=== PATIENT | female | born 1945 | race Caucasian/White ===

== ENCOUNTER 2016-12-26 11:32 | Emergency (ER) | payer MEDICARE ==
--- NOTE | 2016-12-26 12:57 | RAD ---
INDICATION: Head injury. COMPARISON: Comparison is made with a prior CT of the brain from December 17, 2015. TECHNIQUE: Contiguous axial sections of the brain were obtained from the skull base to the vertex without contrast. FINDINGS: The ventricles, cisterns and sulci are enlarged consistent with diffuse atrophy. There are multiple focal areas of decreased density in the subcortical and periventricular white matter suggestive of moderate to severe chronic small vessel ischemic changes. There is no evidence for hemorrhage. No significant focal osseous abnormality is seen. The visualized portion of the paranasal sinuses and mastoid air cells appear clear. IMPRESSION: 1. NO EVIDENCE FOR ACUTE INTRACRANIAL ABNORMALITY. 2. FINDINGS SUGGESTIVE OF MODERATE TO SEVERE CHRONIC SMALL VESSEL ISCHEMIC CHANGES.
--- NOTE | 2016-12-26 13:23 | ED ---
Head Injury - HPI Summary HPI Summary: 71F presents with right side head laceration. She states she woke up and notice that her head was bleeding. She does not remember any injury. She denies any nausea or vomiting. She is not on any blood thinners. She denies any headache or pain anywhere. - History Of Current Complaint Chief Complaint: EDLacSutureRecheck Stated Complaint: FOUND BLOOD IN HAIR, HEAD PAIN Time Seen by Provider: 12/26/16 11:58 Pain Intensity: 5 - Allergies/Home Medications Allergies/Adverse Reactions: Allergies Allergy/AdvReac Type Severity Reaction Status Date / Time Aspirin Allergy Swelling Verified 12/26/16 12:17 Of Face,Lips,& Throat Ibuprofen Allergy Swelling Verified 12/26/16 12:17 Of Face,Lips,& Throat Lamotrigine [From Lamictal] Allergy CONFUSION Verified 12/26/16 12:17 Penicillins Allergy Swelling Verified 12/26/16 12:17 Of Face,Lips,& Throat PMH/Surg Hx/FS Hx/Imm Hx Endocrine/Hematology History: Denies: Hx Anticoagulant Therapy, Hx Diabetes, Hx Systemic Lupus Erythematosus, Hx Thyroid Disease Cardiovascular History: Reports: Hx Hypercholesterolemia, Hx Hypertension Denies: Hx Pacemaker/ICD Respiratory History: Denies: Hx Asthma, Hx Lung Cancer, Hx Pneumonia, Hx Pulmonary Embolism History: Denies: Hx Renal Disease Sensory History: Reports: Hx Contacts or Glasses - reading only Denies: Hx Hearing Aid Opthamlomology History: Reports: Hx Contacts or Glasses - reading only Neurological History: Reports: Hx Transient Ischemic Attacks (TIA) - 12/29 Psychiatric History: Reports: Hx Anxiety, Hx Depression Denies: Hx Panic Disorder - Cancer History Hx Chemotherapy: No Hx Radiation Therapy: No - Surgical History Surgery Procedure, Year, and Place: Right Hip replacement (2012);. tonsilectomy (1965) Infectious Disease History: No Infectious Disease History: Denies: History Other Infectious Disease, Traveled Outside the [place] in Last 30 Days - Family History Known Family History: Positive: Hypertension, Diabetes - Social History Alcohol Use: Rare Substance Use Type: Reports: None Smoking Status (MU): Former Smoker Review of Systems Negative: Fever Negative: Chest Pain Negative: Shortness Of Breath Positive: Other - laceration to scalp Positive: Headache All Other Systems Reviewed And Are Negative: Yes Physical Exam Triage Information Reviewed: Yes Vital Signs On Initial Exam: Initial Vitals Temp Pulse Resp BP Pulse Ox 98.8 F 76 18 131/66 96 12/26/16 11:37 12/26/16 11:37 12/26/16 11:37 12/26/16 11:37 12/26/16 11:37 Vital Signs Reviewed: Yes Appearance: Positive: Well-Appearing Skin: Positive: Warm, Dry, Other - 2cm on right side of scalp Head/Face: Positive: Normal Head/Face Inspection, Other - no step off, racoon eyes, acevedo sign Eyes: Positive: Normal, EOMI, RADHA, Conjunctiva Clear ENT: Positive: Normal ENT inspection, Pharynx normal, TMs normal Respiratory/Lung Sounds: Positive: Clear to Auscultation, Breath Sounds Present Cardiovascular: Positive: Normal, RRR Neurological: Positive: Sensory/Motor Intact, Alert, Oriented to Person Place, Time, CN Intact II-III - [place] Coma Scale Best Eye Response: 4 - Spontaneous Best Motor Response: 6 - Obeys Commands Best Verbal Response: 5 - Oriented Procedures - Laceration/Wound Repair 1 Location: head Description: Linear Length, Depth and Shape: 2cm Irrigated w/ Saline (ccs): 50 Closure: Dickinson #__ - 2 Diagnostics - Vital Signs Vital Signs Temp Pulse Resp BP Pulse Ox 12/26/16 12:17 98.5 F 71 18 128/58 95 12/26/16 11:37 98.8 F 76 18 131/66 96 - Laboratory Lab Statement: Any lab studies that have been ordered have been reviewed, and results considered in the medical decision making process. - CT brain CT Interpretation: No Acute Changes CT Interpretation Completed By: Radiologist Head Injury Course/Dx Course Of Treatment: 71F presents with laceration to scalp that does not know how got. denies any hadache, nausea or vomiting. not on blood thinners. on exam normal neuro exam and 2cm scalp laceration that placed [address] head normal. patient understands and agrees with plan - Diagnoses Differential Diagnosis/HQI/PQRI: Concussion Without LOC, Contusion, Laceration Provider Diagnoses: Laceration of scalp, Head injury Discharge - Discharge Plan Condition: Good Disposition: HOME Patient Education Materials: Staple Care (ED) Referrals: Jayson Cam MD [Primary Care Provider] - Additional Instructions: Take Tylenol for pain Do not scrub staple area Return to ED or primary in 7-10 days to have kvng removed Follow up with primary within 5 days Return to ED if develop signs of infection such as fever, spreading redness, or pus or if vomit again or any new or worsening symptoms
[2016-12-26 13:44] VITALS: BP 139/64
== END 2016-12-26 13:41 | disposition home or self-care (01) ==
LOC: ED 11:32
DX: R51 Headache (principal); S01.01XA Laceration without foreign body of scalp, initial encounter; S09.90XA Unspecified injury of head, initial encounter; X58.XXXA Exposure to other specified factors, initial encounter; Y93.9 Activity, unspecified; Y92.9 Unspecified place or not applicable; Z87.891 Personal history of nicotine dependence
CPT/HCPCS: 12001; 70450; 99281

== ENCOUNTER 2017-01-08 17:31 | Emergency (ER) | payer MEDICARE ==
[2017-01-08 21:03] LABS: Hematocrit 40 % (35-47); Hemoglobin 13.4 g/dl (12.0-16.0); Mean Corpuscular HGB Conc 33 g/dl (31-36); Mean Corpuscular Hemoglobin 30 pg (27-31); Mean Corpuscular Volume 89 fL (80-97); Mean Platelet Volume 9 um3 (7.4-10.4); Red Blood Count 4.49 10^6/ul (4.0-5.4); Red Cell Distribution Width 14 % (10.5-15); White Blood Count 7.7 10^3/ul (3.5-10.8)
[2017-01-08] MEDS ORDERED: NS 0.9% 1000 ML* 1,000 ML IV ONE (21:03)
[2017-01-08 21:19] LABS: Albumin 3.9 g/dL (3.2-5.2); BUN/Creatinine Ratio 15.6 (8-20); EGFR Non-African American 41.2 (>60); Globulin 2.8 g/dL (2-4); Magnesium 1.6 mg/dL (1.9-2.7); Total Bilirubin 0.7 mg/dL (0.2-1.0); Total Protein 6.7 g/dL (6.4-8.9)
[2017-01-08 21:46] LABS: TSH (Thyroid Stimulating Horm) 1.33 mcIU/mL (0.34-5.60)
[2017-01-08 22:05] VITALS: BP 144/68
--- NOTE | 2017-01-08 22:53 | ED ---
Aparna Bermeo Erika, scribed for Ga Salas MD on 01/08/17 at 2010 . Complex/Multi-Sys Presentation - HPI Summary HPI Summary: Patient is a 71-year-old female presenting to the ED with a CC of possible syncopal episode vs. seizure. Per EMS, patient lost consciousness, and her hand was twitching for 2 minutes. They report patient was not post-ictal when they arrived. Patient cannot recall that anything happened. She does report multiple falls over the past few months. Patient denies any pain or any other symptoms currently. Hx dementia. - History Of Current Complaint Chief Complaint: EDSyncope Time Seen by Provider: 01/08/17 19:01 Hx Obtained From: Patient, Family/Multimedia Designer - Friend, EMS Onset/Duration: Sudden Onset, Lasting Minutes, Resolved Timing: Constant Severity Currently: None Severity Initially: Moderate Alleviating Factor(s): Spontaneous resolution Associated Signs And Symptoms: Positive: Other - LOC. Negative: Abdominal Pain , Back Pain - Allergies/Home Medications Allergies/Adverse Reactions: Allergies Allergy/AdvReac Type Severity Reaction Status Date / Time Aspirin Allergy Swelling Verified 01/08/17 18:11 Of Face,Lips,& Throat Ibuprofen Allergy Swelling Verified 01/08/17 18:11 Of Face,Lips,& Throat Lamotrigine [From Lamictal] Allergy CONFUSION Verified 01/08/17 18:11 Penicillins Allergy Swelling Verified 01/08/17 18:11 Of Face,Lips,& Throat PMH/Surg Hx/FS Hx/Imm Hx Endocrine/Hematology History: Denies: Hx Anticoagulant Therapy, Hx Diabetes, Hx Systemic Lupus Erythematosus, Hx Thyroid Disease Cardiovascular History: Reports: Hx Hypercholesterolemia, Hx Hypertension Denies: Hx Pacemaker/ICD Respiratory History: Denies: Hx Asthma, Hx Lung Cancer, Hx Pneumonia, Hx Pulmonary Embolism History: Denies: Hx Renal Disease Sensory History: Reports: Hx Contacts or Glasses - reading only Denies: Hx Hearing Aid Opthamlomology History: Reports: Hx Contacts or Glasses - reading only Neurological History: Reports: Hx Dementia, Hx Transient Ischemic Attacks (TIA) - 12/29 Psychiatric History: Reports: Hx Anxiety, Hx Depression Denies: Hx Panic Disorder - Cancer History Hx Chemotherapy: No Hx Radiation Therapy: No - Surgical History Surgery Procedure, Year, and Place: Right Hip replacement (2012);. tonsilectomy (1965) Infectious Disease History: No Infectious Disease History: Denies: History Other Infectious Disease, Traveled Outside the [place] in Last 30 Days - Family History Known Family History: Positive: Hypertension, Diabetes - Social History Occupation: Retired Alcohol Use: Rare Hx Substance Use: No Substance Use Type: Reports: None Hx Tobacco Use: Yes Smoking Status (MU): Former Smoker Review of Systems Musculoskeletal: Other - hand twitching Negative: Arthralgia, Myalgia Positive: Syncope - vs. seizure All Other Systems Reviewed And Are Negative: Yes Physical Exam Triage Information Reviewed: Yes Vital Signs On Initial Exam: Initial Vitals Temp Pulse Resp BP Pulse Ox 99.2 F 77 20 135/59 93 01/08/17 17:42 01/08/17 17:42 01/08/17 17:42 01/08/17 17:42 01/08/17 17:42 Vital Signs Reviewed: Yes Appearance: Positive: Well-Appearing, No Pain Distress Skin: Positive: Warm, Skin Color Reflects Adequate Perfusion, Dry Head/Face: Positive: Normal Head/Face Inspection Eyes: Positive: Normal ENT: Positive: Normal ENT inspection Neck: Positive: Supple, Nontender Respiratory/Lung Sounds: Positive: Clear to Auscultation, Breath Sounds Present Cardiovascular: Positive: RRR Abdomen Description: Positive: Nontender, Soft Bowel Sounds: Positive: Present Musculoskeletal: Positive: Normal Neurological: Positive: Normal Psychiatric: Positive: Affect/Mood Appropriate - e - [place] Coma Scale Coma Scale Total: 15 Diagnostics - Vital Signs Vital Signs Temp Pulse Resp BP Pulse Ox 01/08/17 19:10 75 16 155/60 01/08/17 19:00 74 23 155/60 95 01/08/17 18:43 73 21 93 01/08/17 18:42 153/71 01/08/17 17:42 99.2 F 77 20 135/59 93 - Laboratory Lab Results: Lab Results 01/08/17 01/08/17 01/08/17 Range/Units 20:55 20:55 20:55 WBC 7.7 (3.5-10.8) 10^3/ul RBC 4.49 (4.0-5.4) 10^6/ul Hgb 13.4 (12.0-16.0) g/dl Hct 40 (35-47) % MCV 89 (80-97) fL MCH 30 (27-31) pg MCHC 33 (31-36) g/dl RDW 14 (10.5-15) % Plt Count 186 (150-450) 10^3/ul MPV 9 (7.4-10.4) um3 Neut % (Auto) 75.9 (38-83) % Lymph % (Auto) 14.9 L (25-47) % [place] % (Auto) 7.3 (1-9) % Eos % (Auto) 1.1 (0-6) % Baso % (Auto) 0.8 (0-2) % Absolute Neuts (auto) 5.9 (1.5-7.7) 10^3/ul Absolute Lymphs (auto) 1.2 (1.0-4.8) 10^3/ul Absolute Monos (auto) 0.6 (0-0.8) 10^3/ul Absolute Eos (auto) 0.1 (0-0.6) 10^3/ul Absolute Basos (auto) 0.1 (0-0.2) 10^3/ul Absolute Nucleated RBC 0 10^3/ul Nucleated RBC % 0 Sodium 139 (133-145) mmol/L Potassium 3.0 L (3.5-5.0) mmol/L Chloride 103 (101-111) mmol/L Carbon Dioxide 27 (22-32) mmol/L Anion Gap 9 (2-11) mmol/L BUN 20 (6-24) mg/dL Creatinine 1.28 H (0.51-0.95) mg/dL Est GFR ( Amer) 53.0 (>60) Est GFR (Non-Af Amer) 41.2 (>60) BUN/Creatinine Ratio 15.6 (8-20) Glucose 118 H (70-100) mg/dL Lactic Acid 0.9 (0.5-2.0) mmol/L Calcium 10.0 (8.6-10.3) mg/dL Magnesium 1.6 L (1.9-2.7) mg/dL Total Bilirubin 0.70 (0.2-1.0) mg/dL AST 77 H (13-39) U/L ALT 103 H (7-52) U/L Alkaline Phosphatase 77 (34-104) U/L Troponin I 0.00 (<0.04) ng/mL Total Protein 6.7 (6.4-8.9) g/dL Albumin 3.9 (3.2-5.2) g/dL Globulin 2.8 (2-4) g/dL Albumin/Globulin Ratio 1.4 (1-3) TSH 1.33 (0.34-5.60) mcIU/mL Result Diagrams: 01/08/17 20:55 01/08/17 20:55 Lab Statement: Any lab studies that have been ordered have been reviewed, and results considered in the medical decision making process. - EKG 17:59 Cardiac Rate: NL - at 75 bpm EKG Rhythm: Sinus Rhythm ST Segment: Non-Specific EKG Interpretation: Borderline wander Re-Evaluation - Re-Evaluation First Eval Re-Evaluation Time: 21:40 Change: Improved Comment: Discussed results with patient. Will discharge Complex Multi-Symp Course/Dx Course Of Treatment: Ms. Reza presented with a concern for having possibly fallen again today. She could not remember and had no C/O while here. Her W/U was negative and I recommended close F/U. - Diagnoses Provider Diagnoses: Syncopal episodes Discharge - Discharge Plan Condition: Stable Disposition: HOME Patient Education Materials: Syncope (ED) Referrals: Jayson Cam MD [Primary Care Provider] - 2 Days Additional Instructions: Please follow up with your PCP. The documentation as recorded by the Aparna espitia Erika accurately reflects the service I personally performed and the decisions made by me, Ga Salas MD.
== END 2017-01-08 22:04 | disposition home or self-care (01) ==
LOC: ED 17:31
DX: R55 Syncope and collapse (principal); E78.00 Pure hypercholesterolemia, unspecified; I10 Essential (primary) hypertension; F03.90 Unspecified dementia, unspecified severity, without behavioral disturbance, psychotic disturbance, mood disturbance, and anxiety; Z86.73 Personal history of transient ischemic attack (TIA), and cerebral infarction without residual deficits; F41.9 Anxiety disorder, unspecified; F32.9 Major depressive disorder, single episode, unspecified; Z87.891 Personal history of nicotine dependence
CPT/HCPCS: 36415; 80053; 83605; 83735; 84443; 84484; 85025; 93005; 96360; 99283

== ENCOUNTER 2017-01-10 17:09 | Inpatient (IN) | payer MEDICARE ==
[2017-01-10] MEDS ORDERED: NS 0.9% 1000 ML* 250 ML IV ONE (17:53)
[2017-01-10 18:10] LABS: Hematocrit 42 % (35-47); Hemoglobin 13.9 g/dl (12.0-16.0); Mean Corpuscular HGB Conc 33 g/dl (31-36); Mean Corpuscular Hemoglobin 30 pg (27-31); Mean Corpuscular Volume 90 fL (80-97); Mean Platelet Volume 9 um3 (7.4-10.4); Red Blood Count 4.66 10^6/ul (4.0-5.4); Red Cell Distribution Width 14 % (10.5-15); White Blood Count 10.1 10^3/ul (3.5-10.8)
--- NOTE | 2017-01-10 18:18 | RAD ---
HISTORY: Altered mental status COMPARISONS: December 26, 2016 TECHNIQUE: Multiple contiguous axial CT scans were obtained of the head without intravenous contrast. FINDINGS: HEMORRHAGE/INFARCT: There is no hemorrhage or acute infarct. MASSES/SHIFT: There is no mass or shift. EXTRA-AXIAL SPACES: There are no extra-axial fluid collections. SULCI AND VENTRICLES: The sulci and ventricles are normal in size and position for the patient's stated age. CEREBRUM: There is hypoattenuation of the periventricular and subcortical white matter. BRAINSTEM: There are no focal parenchymal abnormalities. CEREBELLUM: There are no focal parenchymal abnormalities. VESSELS: The vessels are grossly normal. PARANASAL SINUSES: The paranasal sinuses are clear. ORBITS: The orbits are unremarkable. BONES AND SOFT TISSUE: No bone or soft tissue abnormalities are noted. OTHER: None IMPRESSION: NO ACUTE INTRACRANIAL PATHOLOGY. CHRONIC SMALL VESSEL ISCHEMIC CHANGES
[2017-01-10 18:24] LABS: ALT 103 U/L (7-52); AST 63 U/L (13-39); Albumin 4.3 g/dL (3.2-5.2); Alkaline Phosphatase 87 U/L (34-104); Anion Gap 12 mmol/L (2-11); BUN/Creatinine Ratio 18.9 (8-20); Blood Urea Nitrogen 27 mg/dL (6-24); CO2 Carbon Dioxide 28 mmol/L (22-32); Calcium 10.3 mg/dL (8.6-10.3); Chloride 103 mmol/L (101-111); EGFR African American 46.7 (>60); EGFR Non-African American 36.3 (>60); Globulin 2.9 g/dL (2-4); Glucose 165 mg/dL (70-100); Magnesium 1.7 mg/dL (1.9-2.7); Potassium 2.8 mmol/L (3.5-5.0); Sodium 143 mmol/L (133-145); Total Protein 7.2 g/dL (6.4-8.9)
[2017-01-10 18:26] LABS: Troponin I 0.01 ng/mL (<0.04)
[2017-01-10 18:57] LABS: Acetaminophen < 15 mcg/mL; Alcohol < 10 mg/dL (<10)
[2017-01-10] MEDS ORDERED: Magnesium Sulfate 2 GM IV* 2 GM/50 ML BAG IVPB ONE (18:58)
[2017-01-10] MEDS ORDERED: Potassium Chlor TAB* 20 MEQ TAB.ER PO ONE (18:58)
[2017-01-10 19:08] LABS: TSH (Thyroid Stimulating Horm) 1.16 mcIU/mL (0.34-5.60)
--- NOTE | 2017-01-10 19:11 | ED ---
Kelsey Bermeo Rebecca, scribed for Latrice Horta MD on 01/10/17 at 1735 . Altered Mental Status - HPI Summary HPI Summary: Pt is a 71 y/o F accompanied by multiple friends who comes to ED p/w moderate AMS characterized as confusion. Sx began suddenly at 0800 and have been constant since onset. Sx aggravated and alleviated by nothing. Additionally c/o aphasia, though she reports that is not her main complaint. Denies any pain including MCCLURE. Friends report that when they came to visit her for lunch she was "not making a lot of sense" and she had been trying to leave her apartment, which is not typical. Prior similar episodes have occurred, but they were less severe. PMHx mild dementia. Pt was evaluated by [facility] 2 days ago for "some kind of seizure" during which she experienced LOC and tremors. She was D/C to home that night. - History Of Current Complaint Chief Complaint: EDAltMentalStatus Stated Complaint: AMS Time Seen by Provider: 01/10/17 17:18 Hx Obtained From: Patient, Family/Ferryboat Operator Cable - Friends Onset/Duration: Still Present Timing: Constant Severity Initially: Moderate Severity Currently: Moderate Character: Confusion Aggravating Factor(s): Nothing Alleviating Factor(s): Nothing - Allergies/Home Medications Allergies/Adverse Reactions: Allergies Allergy/AdvReac Type Severity Reaction Status Date / Time Aspirin Allergy Swelling Verified 01/08/17 18:11 Of Face,Lips,& Throat Ibuprofen Allergy Swelling Verified 01/08/17 18:11 Of Face,Lips,& Throat Lamotrigine [From Lamictal] Allergy CONFUSION Verified 01/08/17 18:11 Penicillins Allergy Swelling Verified 01/08/17 18:11 Of Face,Lips,& Throat PMH/Surg Hx/FS Hx/Imm Hx Endocrine/Hematology History: Denies: Hx Anticoagulant Therapy, Hx Diabetes, Hx Systemic Lupus Erythematosus, Hx Thyroid Disease Cardiovascular History: Reports: Hx Hypercholesterolemia, Hx Hypertension Denies: Hx Pacemaker/ICD Respiratory History: Denies: Hx Asthma, Hx Lung Cancer, Hx Pneumonia, Hx Pulmonary Embolism History: Denies: Hx Renal Disease Sensory History: Reports: Hx Contacts or Glasses - reading only Denies: Hx Hearing Aid Opthamlomology History: Reports: Hx Contacts or Glasses - reading only Neurological History: Reports: Hx Dementia, Hx Transient Ischemic Attacks (TIA) - 12/29 Psychiatric History: Reports: Hx Anxiety, Hx Depression Denies: Hx Panic Disorder - Cancer History Hx Chemotherapy: No Hx Radiation Therapy: No - Surgical History Surgery Procedure, Year, and Place: Right Hip replacement (2012);. tonsilectomy (1965) Infectious Disease History: No Infectious Disease History: Denies: History Other Infectious Disease, Traveled Outside the [place] in Last 30 Days - Family History Known Family History: Positive: Hypertension, Diabetes - Social History Alcohol Use: Rare Hx Substance Use: No Substance Use Type: Reports: None Hx Tobacco Use: Yes Smoking Status (MU): Former Smoker Review of Systems Neurological: Other - aphasia Negative: Headache Psychological: Other - AMS - confusion All Other Systems Reviewed And Are Negative: Yes Physical Exam - Summary Physical Exam Summary: General: Well appearing, no pain distress Skin: Warm, Skin Color Reflects Adequate Perfusion, Dry Eyes: EOMI, RADHA ENT: Pharynx normal, TMs normal Neck: Supple, nontender Respiratory: CTA, breath sounds present, no rhonchi, no wheezes, no rales Cardiovascular: RRR, no murmur, no rub, no gallop Abdomen: Soft, nontender, Non-distended, no guarding, no rebound Bowel: Present Musculoskeletal: XU, No edema Neuro: Sensory/motor intact, A&Ox3, CN intact 2-12, No facial drop Psych: Affect/mood appropriate Triage Information Reviewed: Yes Vital Signs On Initial Exam: Initial Vitals Temp Pulse Resp BP Pulse Ox 97.4 F 78 18 155/63 88 01/10/17 17:10 01/10/17 17:10 01/10/17 17:10 01/10/17 17:10 01/10/17 17:10 Vital Signs Reviewed: Yes Diagnostics - Vital Signs Vital Signs Temp Pulse Resp BP Pulse Ox 01/10/17 17:10 97.4 F 78 18 155/63 88 - Laboratory Lab Results: Lab Results 01/10/17 01/10/17 01/10/17 Range/Units 17:45 17:45 17:45 WBC 10.1 (3.5-10.8) 10^3/ul RBC 4.66 (4.0-5.4) 10^6/ul Hgb 13.9 (12.0-16.0) g/dl Hct 42 (35-47) % MCV 90 (80-97) fL MCH 30 (27-31) pg MCHC 33 (31-36) g/dl RDW 14 (10.5-15) % Plt Count 229 (150-450) 10^3/ul MPV 9 (7.4-10.4) um3 Neut % (Auto) 82.8 (38-83) % Lymph % (Auto) 10.2 L (25-47) % [place] % (Auto) 6.6 (1-9) % Eos % (Auto) 0.1 (0-6) % Baso % (Auto) 0.3 (0-2) % Absolute Neuts (auto) 8.4 H (1.5-7.7) 10^3/ul Absolute Lymphs (auto) 1.0 (1.0-4.8) 10^3/ul Absolute Monos (auto) 0.7 (0-0.8) 10^3/ul Absolute Eos (auto) 0 (0-0.6) 10^3/ul Absolute Basos (auto) 0 (0-0.2) 10^3/ul Absolute Nucleated RBC 0.01 10^3/ul Nucleated RBC % 0.1 INR (Anticoag Therapy) 1.01 (0.89-1.11) Sodium 143 (133-145) mmol/L Potassium 2.8 L (3.5-5.0) mmol/L Chloride 103 (101-111) mmol/L Carbon Dioxide 28 (22-32) mmol/L Anion Gap 12 H (2-11) mmol/L BUN 27 H (6-24) mg/dL Creatinine 1.43 H (0.51-0.95) mg/dL Est GFR ( Amer) 46.7 (>60) Est GFR (Non-Af Amer) 36.3 (>60) BUN/Creatinine Ratio 18.9 (8-20) Glucose 165 H (70-100) mg/dL Lactic Acid (0.5-2.0) mmol/L Calcium 10.3 (8.6-10.3) mg/dL Magnesium 1.7 L (1.9-2.7) mg/dL Total Bilirubin 0.80 (0.2-1.0) mg/dL AST 63 H (13-39) U/L ALT 103 H (7-52) U/L Alkaline Phosphatase 87 (34-104) U/L Troponin I 0.01 (<0.04) ng/mL Total Protein 7.2 (6.4-8.9) g/dL Albumin 4.3 (3.2-5.2) g/dL Globulin 2.9 (2-4) g/dL Albumin/Globulin Ratio 1.5 (1-3) TSH 1.16 (0.34-5.60) mcIU/mL Acetaminophen < 15 mcg/mL Serum Alcohol < 10 (<10) mg/dL 01/10/17 Range/Units 17:45 WBC (3.5-10.8) 10^3/ul RBC (4.0-5.4) 10^6/ul Hgb (12.0-16.0) g/dl Hct (35-47) % MCV (80-97) fL MCH (27-31) pg MCHC (31-36) g/dl RDW (10.5-15) % Plt Count (150-450) 10^3/ul MPV (7.4-10.4) um3 Neut % (Auto) (38-83) % Lymph % (Auto) (25-47) % [place] % (Auto) (1-9) % Eos % (Auto) (0-6) % Baso % (Auto) (0-2) % Absolute Neuts (auto) (1.5-7.7) 10^3/ul Absolute Lymphs (auto) (1.0-4.8) 10^3/ul Absolute Monos (auto) (0-0.8) 10^3/ul Absolute Eos (auto) (0-0.6) 10^3/ul Absolute Basos (auto) (0-0.2) 10^3/ul Absolute Nucleated RBC 10^3/ul Nucleated RBC % INR (Anticoag Therapy) (0.89-1.11) Sodium (133-145) mmol/L Potassium (3.5-5.0) mmol/L Chloride (101-111) mmol/L Carbon Dioxide (22-32) mmol/L Anion Gap (2-11) mmol/L BUN (6-24) mg/dL Creatinine (0.51-0.95) mg/dL Est GFR ( Amer) (>60) Est GFR (Non-Af Amer) (>60) BUN/Creatinine Ratio (8-20) Glucose (70-100) mg/dL Lactic Acid 1.6 (0.5-2.0) mmol/L Calcium (8.6-10.3) mg/dL Magnesium (1.9-2.7) mg/dL Total Bilirubin (0.2-1.0) mg/dL AST (13-39) U/L ALT (7-52) U/L Alkaline Phosphatase (34-104) U/L Troponin I (<0.04) ng/mL Total Protein (6.4-8.9) g/dL Albumin (3.2-5.2) g/dL Globulin (2-4) g/dL Albumin/Globulin Ratio (1-3) TSH (0.34-5.60) mcIU/mL Acetaminophen mcg/mL Serum Alcohol (<10) mg/dL Result Diagrams: 01/10/17 17:45 01/10/17 17:45 Lab Statement: Any lab studies that have been ordered have been reviewed, and results considered in the medical decision making process. - CT Brain CT CT Interpretation Completed By: Radiologist - EKG 1731 Cardiac Rate: NL - 71 bpm EKG Rhythm: Sinus Rhythm ST Segment: Non-Specific - Non-specific T-wave changes EKG Comparison: No Significant Change - from EKG on 01/08/2017 National Institutes Of Health - NIH Scale Level of Consciousness: Alert/Keenly Responsive Ask Patient the Month and His/Her Age: Neither Correct/Aphasic Ask Pt to Open/Close Eyes and State Manager/Release Non-Paretic Hand: Both Correctly Best Gaze (Only Horizontal Eye Movement): Normal Visual Field Testing: No Visual Loss Facial Paresis-Pt to Smile & Close Eyes or Grimace Symmetry: Normal/Symmetrical Motor Function - Right Arm: No Drift-Holds 10 Seconds Motor Function - Left Arm: No Drift-Holds 10 Seconds Motor Function - Right Leg: No Drift-Holds 10 Seconds Motor Function - Left Leg: No Drift-Holds 10 Seconds Limb Ataxia-Must be out of Proportion to Weakness Present: Absent Sensory (Use Pinprick to Test Arms/Legs/Trunk/Face): Normal Best Language (Describe Picture, Name Items): No Aphasia Dysarthria (Read Several Words): Normal Extinction and Inattention: No Abnormality Total Score: 2 Altered Mental Statu Course/Dx - Course Course Of Treatment: 71 yo female with increased ams does have a very mild hx of dementia, 3 days ago had a questionable seizure vs. syncopal episode and today can not remember visiting with her friends and had some bizarre behavior attempting to leave the bdg multiple times. case presented to Dr. Gary for admission Assessment/Plan: Patient medications reviewed this visit. - Diagnoses Discharge Diagnoses: Altered mental status - Provider Notifications Discussed Care Of Patient With: Dr. Gary, hospitalist, who accept pt for admission. Time Discussed With Above Provider: 19:07 Discharge - Discharge Plan Condition: Good Disposition: ADMITTED TO [facility] Referrals: Jayson Cam MD [Primary Care Provider] - The documentation as recorded by the Kelsey espitia Rebecca accurately reflects the service I personally performed and the decisions made by me, Latrice Horta MD.
[2017-01-10] MEDS ORDERED: Ondansetron INJ* 2 MG/ML VIAL IV PRN (19:40)
[2017-01-10] MEDS ORDERED: Acetaminophen TAB* 325 MG PO PRN (19:40)
[2017-01-10] MEDS ORDERED: NS 0.9% 1000 ML* 1,000 ML IV ONE (19:40)
[2017-01-10] MEDS ORDERED: NS 0.9% 1000 ML* 1,000 ML IV SCH (19:45)
[2017-01-10] MEDS ORDERED: ALPRAZolam TAB* 0.5 MG PO PRN (19:50)
[2017-01-10 20:02] LABS: C Reactive Protein 4.98 mg/L (< 5.00)
[2017-01-10 20:05] LABS: Urine Bilirubin Negative (Negative); Urine Glucose Negative (Negative); Urine Nitrite Negative (Negative)
--- NOTE | 2017-01-10 20:20 | RAD ---
HISTORY: Altered mental status, hypertension COMPARISONS: None VIEWS:1: Single frontal portable view of the chest at 7:15 PM FINDINGS: LINES AND TUBES: None. CARDIOMEDIASTINAL SILHOUETTE: The cardiomediastinal silhouette is normal for portable technique. PLEURA: The costophrenic angles are sharp. No pleural abnormalities are noted. LUNG PARENCHYMA: The lungs are clear. ABDOMEN: The upper abdomen is clear. There is no subphrenic gas. BONES AND SOFT TISSUES: No bone or soft tissue abnormalities are noted. IMPRESSION: NO ACTIVE CARDIOPULMONARY DISEASE.
[2017-01-10 20:30] LABS: Erythrocyte Sed Rate 22 mm/Hr (0-40)
[2017-01-10] MEDS ORDERED: Ziprasidone * 20 MG CAP (generic Geodon) PO SCH (21:00)
[2017-01-10] MEDS ORDERED: Iodixanol* (CONTRAST) 320 MG/ML 100 ML SDV IV ONE (21:51)
--- NOTE | 2017-01-10 22:43 | RAD ---
HISTORY: Abdominal pain, left lower quadrant pain COMPARISONS: None TECHNIQUE: Multiple contiguous axial CT scans were obtained of the chest, abdomen, and pelvis after the administration of intravenous contrast. Coronal and sagittal multiplanar reformations are submitted for review.. Oral contrast was administered. Delayed images were obtained through the abdomen and pelvis. FINDINGS: CHEST NECK AND THYROID: The lower neck and thyroid are unremarkable. CHEST WALL: There is no lower cervical, axillary, or supraclavicular lymphadenopathy by size criteria. HEART AND PERICARDIUM: The heart is unremarkable. AORTA AND PULMONARY VASCULATURE: The aorta and pulmonary vasculature are normal. MEDIASTINUM: There is no mediastinal lymphadenopathy by size criteria. JONATHAN: There is no hilar lymphadenopathy by size criteria. AIRWAY AND ESOPHAGUS: The airway is unremarkable, without endobronchial filling defect. The esophagus is grossly normal. LUNG PARENCHYMA: The lungs are clear. PLEURA: No pleural abnormalities are noted. BONES AND SOFT TISSUES: Degenerative changes are noted ABDOMEN/PELVIS: LIVER: The liver is normal in shape, size, contour, and attenuation. BILE DUCTS: There is no intrahepatic or extrahepatic biliary dilatation. GALLBLADDER: There is mucosal thickening versus multiple small stones noted dependently within the gallbladder. There is no biliary dilatation. PANCREAS: The pancreas is normal, without mass or ductal dilatation. SPLEEN: Normal in size and appearance. UPPER GI TRACT: Evaluation of the gastrointestinal tract is limited by incomplete gastric distention. The upper GI tract is unremarkable. SMALL BOWEL \T\ MESENTERY: The small bowel is normal in contour, course, and caliber. There is no obstruction or dilatation. COLON: The colon is normal in contour, course, caliber. There is no pericolonic inflammatory change. There is a tubular, vermiform, hollow viscus that is blind ending, and originates from the cecum, consistent with a normal appendix. There is no periappendiceal inflammatory change. This is best seen on axial images 53 through 57 ADRENALS: Normal bilaterally. KIDNEYS: A simple renal cyst is noted of the upper pole of the right kidney. BLADDER: The bladder is smooth in contour. PELVIC ORGANS: The uterus and adnexa are grossly normal for technique. AORTA: There is mild calcific atherosclerotic disease of the abdominal aorta and its branches, without aneurysmal dilatation IVC: Unremarkable LYMPH NODES: There is no lymphadenopathy by size criteria. ABDOMINAL WALL: There is no evidence for abdominal wall hernia. BONES: Degenerative changes are noted of the spine. The patient is status post right hip arthroplasty OTHER: None IMPRESSION: 1. THERE IS MUCOSAL THICKENING OF THE GALLBLADDER TOWARDS THE NECK, THOUGH THIS MAY BE AN ARTIFACT OF MULTIPLE SMALL STONES FILLING THE DEPENDENT PORTION OF THE GALLBLADDER. RECOMMEND CONSIDERATION OF CORRELATION WITH ULTRASOUND OF THE GALLBLADDER. 2. OTHERWISE, NO ACUTE CT PATHOLOGY OF THE VISUALIZED CHEST, ABDOMEN, OR PELVIS
[2017-01-10] MEDS: Atorvastatin* 20 MG TAB PO SCH (23:16)
[2017-01-10] MEDS: QUEtiapine TAB* 100 MG PO SCH (23:17)
[2017-01-10] MEDS: Heparin VIAL(*) 5000 UNITS/ML VIAL (FIVE THOUSAND) SUBCUT SCH (23:20)
[2017-01-10] MEDS: FLUoxetine CAP* 20 MG PO SCH (23:20)
--- NOTE | 2017-01-11 01:26 | HP ---
HISTORY AND PHYSICAL: DATE OF ADMISSION: 01/10/17 PRIMARY CARE PROVIDER: Dr. Cam. ATTENDING PHYSICIAN WHILE IN THE HOSPITAL: Dr. Lio Mancia* (report dictated by Yanet Saini NP). CHIEF COMPLAINT: Altered mental status. HISTORY OF PRESENT ILLNESS: Ms. Reza is a 71-year-old female patient, who presents to the ER today with complaints of altered mental status. According to the friend who is present, the patient today was sitting on a bench at [facility] trying to catch a bus to her old house which she has not had in 30 years and she has not been acting herself since . In fact, she was here on with concerns for possible seizure and altered mental status and a fall. She was evaluated in the ER and sent home. Unfortunately, though she has declined, her mentation has not been doing well over the last couple of days. There has been no report of fevers, chills, cough, or shortness of breath. No abdominal pain. The patient says she does feel like she is not acting herself and the friends were very concerned because they noticed that she just was not at her baseline mentation. The patient denied again any fevers or chills. No vomiting, no change in medication with the exception of Aricept which was recently added about a month a ago. She states that the friends were concerned to leave her at [facility] alone because she lives alone, so they brought her to the emergency department to have her mentation evaluated. There have been no reports of focal weaknesses or trouble with speech, although they do state that it appears like she is trying to struggle to get her words out at times, but the friend is concerned that she was confused. She was evaluated in the ER by Dr. Horta and because of the altered mental status, we were asked to evaluate for admission. PAST MEDICAL HISTORY: Significant for: 1. Dementia. 2. TIA. 3. Hyperlipidemia. 4. Hypertension. 5. Depression. 6. Bipolar disorder. 7. Essential tremors. PAST SURGICAL HISTORY: She has had: 1. Left total hip arthroplasty. 2. Tonsillectomy. MEDICATIONS: The home meds according to a sheet that she brought includes: 1. Geodon 60 mg daily. 2. Seroquel 150 mg daily. 3. Hydrochlorothiazide 50 mg daily. 4. Prozac 20 mg p.o. t.i.d. 5. Xanax 1 mg p.o. at bedtime as needed. 6. Lisinopril 40 mg daily. 7. Plavix 75 mg a day. 8. Lipitor 20 mg daily. 9. Wellbutrin 450 mg daily. 10. Amlodipine 10 mg p.o. daily. ALLERGIES TO MEDICATIONS: Include ASPIRIN, IBUPROFEN, LAMICTAL, and PENICILLIN. FAMILY HISTORY: Both her parents were diabetics and father did have a stroke. SOCIAL HISTORY: She is a former smoker. She rarely drinks alcohol. Surrogate decision maker is her brother and sister. REVIEW OF SYSTEMS: There is no documented fever. She denied having any significant weight change. There was no double vision. There is no ear discharge. She denied having any rhinorrhea. There was no sore throat. No thyroid enlargement. Denies having any chest pain. There was no orthopnea, no nocturnal dyspnea. There was no abdominal pain that she reported. No nausea, no vomiting. No dysuria, no frequency. No seizure, no loss of consciousness. No pruritus and no skin ulceration. Review of 14 systems completed, all others negative. PHYSICAL EXAMINATION GENERAL: At this time, Ms. Reza is a 71-year-old female patient, she is sitting in the ER stretcher. She does not appear to be in any acute distress. VITAL SIGNS: Reveal blood pressure 152/67 with pulse of 70, respirations 20, O2 sat was 93%, temperature 98.8. HEENT: Head is atraumatic and normocephalic. Eyes: EOMs are intact. Sclerae anicteric and not pale. Throat: Oral mucosa appears to be dry. No oropharyngeal erythema. NECK: Supple. LUNGS: Clear to auscultation bilaterally. No wheezes, rales, or rhonchi. HEART: Sounds S1 and S2. Regular rate and rhythm. No murmurs, rubs, or gallops. ABDOMEN: Soft. It was flat. There was tenderness in the left lower quadrant on palpation. EXTREMITIES: Pulses were 2+ throughout. She was able to move all 4 extremities , 5/5 strength. NEUROLOGICAL: She is awake and alert and oriented x3. Tongue midline. Generation Technologist were equal. She had sensation intact to all 4 extremities. Her speech was clear to me. She had no facial drooping. Cranial nerves were intact. She had no gross focal deficits. SKIN: Intact. DIAGNOSTIC STUDIES/LAB DATA: Today revealed WBC 10.1, RBC of 4.66, hemoglobin , hematocrit of 42, platelet count of 229. The INR was 1.01. Sodium 143, potassium of 2.8, chloride of 103, bicarb 28, BUN 27, creatinine 1.43, glucose 165, lactate 1.6, calcium 10.3. Total bili 0.8, AST , ALT 103. Her mag was 1.7. Trop 0.01. Albumin 4.3. Toxicology was negative. She did have a brain CT obtained today, which revealed no acute intracranial pathology, chronic small vessel ischemic changes. There was an EKG obtained today as well which revealed a normal sinus rhythm with rate of 71. It was reviewed to the previous EKG. It appears to be similar. She does have a borderline what appears to be intraventricular conduction delay. Old medical records were reviewed. ASSESSMENT AND PLAN: Ms. Reza is a 71-year-old female patient coming into the ER today with complaints of altered mental status, there was concern and the hospitalist service was asked to evaluate for admission. She will be admitted under observation status for: 1. Altered mental status. At this point, etiology of this is unclear. I am concerned that she does have some tenderness in the left lower quadrant. She may have an underlying infection, which certainly could causes delirium and also her LFTs were mildly elevated, so I think it is warranted to go ahead and get a CT of the abdomen and pelvis. In addition to this, I will get a urine. I will also hydrate her. I will go ahead and check an ammonia level and we will continue to follow. Should her delirium not clear, then we would consider getting a Neurology consult and do neuro checks every 4 hours. 2. Abdominal pain. Again, I will get a CT of the abdomen and pelvis, holding on antibiotics until if there is an infectious source and it presents itself, then I will start antibiotics. 3. Dementia with acute delirium. Again, we will continue with supportive care. Continue meds as prescribed. 4. History of transient ischemic attack. Continue with secondary prevention. 5. Hypertension. I am going to continue amlodipine. We will hold hydrochlorothiazide and the lisinopril in the setting of mild acute kidney injury. 6. Hyperlipidemia. Continue statin therapy. 7. Bipolar disorder. Continue meds as prescribed. 8. Essential tremors. Continue current medical regimen. 9. Depression, stable. Continue meds as prescribed. 10. Hypokalemia and hypomagnesemia. We are going to go ahead and replace it; started in the ER. 11. Acute kidney injury. Etiology is unclear, certainly could be related to dehydration and my plan is to hydrate her. We will send off a FENa, we will do a bladder scan, and we will continue to follow. 12. DVT prophylaxis. She is high risk. She will be placed on heparin subcu. 13. Code status. Full code. 14. Fluids, electrolytes, nutrition. She is n.p.o. pending the CAT scan, after the CAT scan, then depending on the findings, we can consider advancing her diet. TIME SPENT: On the admission was 60 minutes; greater than half of the time was spent [id number] with the patient obtaining my history and physical, other half the time spent going over the plan of care with the patient and implementing plan of care. I did discuss the plan of care with my attending, Dr. Mancia; he is in agreement. YANET SAINI NP CC: Dr. Cam* [id number]/[facility] #: [id number] MARY
[2017-01-11] MEDS: Heparin VIAL(*) 5000 UNITS/ML VIAL (FIVE THOUSAND) SUBCUT SCH ×3 (05:15→20:42)
[2017-01-11 07:24] LABS: Hematocrit 37 % (35-47); Hemoglobin 12.2 g/dl (12.0-16.0); Mean Corpuscular HGB Conc 33 g/dl (31-36); Mean Corpuscular Hemoglobin 30 pg (27-31); Mean Corpuscular Volume 91 fL (80-97); Mean Platelet Volume 9 um3 (7.4-10.4); Red Blood Count 4.04 10^6/ul (4.0-5.4); Red Cell Distribution Width 14 % (10.5-15); White Blood Count 8.5 10^3/ul (3.5-10.8)
[2017-01-11 07:35] LABS: BUN/Creatinine Ratio 17.1 (8-20); Calcium 8.5 mg/dL (8.6-10.3); EGFR African American 62.5 (>60); EGFR Non-African American 48.6 (>60)
[2017-01-11 07:53] LABS: Potassium 2.6 mmol/L (3.5-5.0)
[2017-01-11] MEDS ORDERED: Potassium Chlor TAB* 20 MEQ TAB.ER PO ONE (08:39)
[2017-01-11] MEDS ORDERED: BuPROPion XL* 150 MG TAB.XL PO SCH (09:00)
[2017-01-11] MEDS: KCL 20 MEQ/100 ML IVPREMIX* 20 MEQ/100 ML BAG IV SCH ×3 (09:10→15:02)
[2017-01-11] MEDS: FLUoxetine CAP* 20 MG PO SCH (09:11)
[2017-01-11] MEDS: amLODIPine TAB* 5 MG PO SCH (09:11)
[2017-01-11] MEDS: Clopidogrel TAB* 75 MG PO SCH (09:11)
--- NOTE | 2017-01-11 09:34 | PN ---
Subjective Date of Service: 01/11/17 Interval History: Pt is feeling well. She denies any pain. No SOB. She states she really does not remember what has been going on over the last week or so. Family History: Unchanged from Admission Social History: Unchanged from Admission Past Medical History: Unchanged from Admission Objective Active Medications: Acetaminophen (Tylenol Tab*) 650 mg PO Q4H PRN PRN Reason: FEVER/PAIN Alprazolam (Xanax Tab*) 1 mg PO BEDTIME PRN PRN Reason: ANXIETY Amlodipine Besylate (Norvasc Tab*) 10 mg PO DAILY REPLACED BY [facility] Last Admin: 01/11/17 09:11 Dose: 10 mg Atorvastatin Calcium (Lipitor*) 20 mg PO 2100 REPLACED BY [facility] Last Admin: 01/10/17 23:16 Dose: 20 mg Bupropion HCl (Wellbutrin Xl *) 450 mg PO DAILY REPLACED BY [facility] Last Admin: 01/11/17 09:11 Dose: 450 mg Clopidogrel Bisulfate (Plavix Tab*) 75 mg PO DAILY REPLACED BY [facility] Last Admin: 01/11/17 09:11 Dose: 75 mg Fluoxetine HCl (Prozac Cap*) 20 mg PO TID REPLACED BY [facility] Last Admin: 01/11/17 09:11 Dose: 20 mg Heparin Sodium (Porcine) (Heparin Vial(*)) 5,000 units SUBCUT Q8HR REPLACED BY [facility] Last Admin: 01/11/17 05:15 Dose: 5,000 units Sodium Chloride (Ns 0.9% 1000 Ml*) 1,000 mls @ 100 mls/hr IV PER RATE REPLACED BY [facility] Last Admin: 01/10/17 22:48 Dose: 100 mls/hr Potassium Chloride (Potassium Chloride 20 Meq/100 Ml Ivpremix*) 20 meq in 100 mls @ 50 mls/hr IV Q2H REPLACED BY [facility] Stop: 01/11/17 14:59 Last Admin: 01/11/17 09:10 Dose: 50 mls/hr Ondansetron HCl (Zofran Inj*) 4 mg IV Q6H PRN PRN Reason: NAUSEA Quetiapine Fumarate (Seroquel Tab*) 150 mg PO BEDTIME REPLACED BY [facility] Last Admin: 01/10/17 23:17 Dose: 150 mg Ziprasidone (Geodon (Generic) *) 60 mg PO BEDTIME REPLACED BY [facility] Last Admin: 01/10/17 23:19 Dose: 60 mg Vital Signs 01/10/17 01/10/1701/10/17 19:45 20:00 20:30 Temperature 98.8 F Pulse Rate 73 Respiratory 16 13 Rate Blood Pressure 142/61 146/69 (mmHg) O2 Sat by Pulse 94 Oximetry 01/10/17 01/10/17 01/10/17 20:44 21:00 21:45 Temperature 98 F Pulse Rate 68 68 Respiratory 16 13 16 Rate Blood Pressure 141/60 141/60 (mmHg) O2 Sat by Pulse 93 Oximetry 01/10/17 01/11/17 01/11/17 21:52 00:16 03:47 Temperature 98 F 98.0 F 97.9 F Pulse Rate 72 75 65 Respiratory 16 16 16 Rate Blood Pressure 136/60 128/54 121/58 (mmHg) O2 Sat by Pulse 94 94 91 Oximetry 01/11/17 01/11/17 07:39 07:44 Temperature 98.1 F Pulse Rate 65 64 Respiratory 18 Rate Blood Pressure 119/55 (mmHg) O2 Sat by Pulse 94 Oximetry Oxygen Devices in Use Now: None Appearance: Elderly female sitting up in bed, NAD Eyes: No Scleral Icterus Ears/Nose/Mouth/Throat: Mucous Membranes Moist Respiratory: Symmetrical Chest Expansion and Respiratory Effort, - - LLL crackles, otherwise CTA Cardiovascular: NL Sounds; No Murmurs; No JVD, RRR, No Edema Abdominal: NL Sounds; No Tenderness; No Distention Extremities: No Clubbing, Cyanosis Skin: No Rash or Ulcers, No Nodules or Sclerosis Neurological: - - oriented to self and place, knows it is 2016 and Thursday but stated it was May and did not know the date. Result Diagrams: 01/11/17 06:45 01/11/17 06:45 Additional Lab and Data: Lab Results 01/10/17 01/10/17 01/10/17 Range/Units 17:45 17:45 17:45 WBC 10.1 (3.5-10.8) 10^3/ul RBC 4.66 (4.0-5.4) 10^6/ul Hgb 13.9 (12.0-16.0) g/dl Hct 42 (35-47) % MCV 90 (80-97) fL MCH 30 (27-31) pg MCHC 33 (31-36) g/dl RDW 14 (10.5-15) % Plt Count 229 (150-450) 10^3/ul MPV 9 (7.4-10.4) um3 Neut % (Auto) 82.8 (38-83) % Lymph % (Auto) 10.2 L (25-47) % [place] % (Auto) 6.6 (1-9) % Eos % (Auto) 0.1 (0-6) % Baso % (Auto) 0.3 (0-2) % Absolute Neuts (auto) 8.4 H (1.5-7.7) 10^3/ul Absolute Lymphs (auto) 1.0 (1.0-4.8) 10^3/ul Absolute Monos (auto) 0.7 (0-0.8) 10^3/ul Absolute Eos (auto) 0 (0-0.6) 10^3/ul Absolute Basos (auto) 0 (0-0.2) 10^3/ul Absolute Nucleated RBC 0.01 10^3/ul Nucleated RBC % 0.1 INR (Anticoag Therapy) 1.01 (0.89-1.11) Sodium 143 (133-145) mmol/L Potassium 2.8 L (3.5-5.0) mmol/L Chloride 103 (101-111) mmol/L Carbon Dioxide 28 (22-32) mmol/L Anion Gap 12 H (2-11) mmol/L BUN 27 H (6-24) mg/dL Creatinine 1.43 H (0.51-0.95) mg/dL Est GFR ( Amer) 46.7 (>60) Est GFR (Non-Af Amer) 36.3 (>60) BUN/Creatinine Ratio 18.9 (8-20) Glucose 165 H (70-100) mg/dL Lactic Acid (0.5-2.0) mmol/L Calcium 10.3 (8.6-10.3) mg/dL Magnesium 1.7 L (1.9-2.7) mg/dL Total Bilirubin 0.80 (0.2-1.0) mg/dL AST 63 H (13-39) U/L ALT 103 H (7-52) U/L Alkaline Phosphatase 87 (34-104) U/L Troponin I 0.01 (<0.04) ng/mL Total Protein 7.2 (6.4-8.9) g/dL Albumin 4.3 (3.2-5.2) g/dL Globulin 2.9 (2-4) g/dL Albumin/Globulin Ratio 1.5 (1-3) TSH 1.16 (0.34-5.60) mcIU/mL Acetaminophen < 15 mcg/mL Serum Alcohol < 10 (<10) mg/dL 01/10/17 Range/Units 17:45 WBC (3.5-10.8) 10^3/ul RBC (4.0-5.4) 10^6/ul Hgb (12.0-16.0) g/dl Hct (35-47) % MCV (80-97) fL MCH (27-31) pg MCHC (31-36) g/dl RDW (10.5-15) % Plt Count (150-450) 10^3/ul MPV (7.4-10.4) um3 Neut % (Auto) (38-83) % Lymph % (Auto) (25-47) % [place] % (Auto) (1-9) % Eos % (Auto) (0-6) % Baso % (Auto) (0-2) % Absolute Neuts (auto) (1.5-7.7) 10^3/ul Absolute Lymphs (auto) (1.0-4.8) 10^3/ul Absolute Monos (auto) (0-0.8) 10^3/ul Absolute Eos (auto) (0-0.6) 10^3/ul Absolute Basos (auto) (0-0.2) 10^3/ul Absolute Nucleated RBC 10^3/ul Nucleated RBC % INR (Anticoag Therapy) (0.89-1.11) Sodium (133-145) mmol/L Potassium (3.5-5.0) mmol/L Chloride (101-111) mmol/L Carbon Dioxide (22-32) mmol/L Anion Gap (2-11) mmol/L BUN (6-24) mg/dL Creatinine (0.51-0.95) mg/dL Est GFR ( Amer) (>60) Est GFR (Non-Af Amer) (>60) BUN/Creatinine Ratio (8-20) Glucose (70-100) mg/dL Lactic Acid 1.6 (0.5-2.0) mmol/L Calcium (8.6-10.3) mg/dL Magnesium (1.9-2.7) mg/dL Total Bilirubin (0.2-1.0) mg/dL AST (13-39) U/L ALT (7-52) U/L Alkaline Phosphatase (34-104) U/L Troponin I (<0.04) ng/mL Total Protein (6.4-8.9) g/dL Albumin (3.2-5.2) g/dL Globulin (2-4) g/dL Albumin/Globulin Ratio (1-3) TSH (0.34-5.60) mcIU/mL Acetaminophen mcg/mL Serum Alcohol (<10) mg/dL Assess/Plan/Problems-Billing Ms Reza is a 71 yo F who has a h/o HTN, HLD, bipolar disorder and ? dementia who presented to the ER with c/o AMS. - Patient Problems (1) Confusion Current Visit: Yes Status: Acute Code(s): R41.0 - DISORIENTATION, UNSPECIFIED SNOMED Code(s): 835040771 Comment: Unclear etiology. Doubt infection as the patient does not have an elevated WBC count or fever. ? progressive dementia. One of the patient's friends seems to state that there has been a more acute to subacute decline in her memory however another friend seems to imply she has had memory issues for a while. In fact that friend states sometimes she does not even remember if she ate. There was a hospitalization in 07/2015 for confusion and at that time she couldn't remember what she had done for Thanksgiving and it was noted that she got lost driving to her brother's house. Will ask for neurology consultation. (2) Hypokalemia Current Visit: Yes Status: Acute Code(s): E87.6 - HYPOKALEMIA SNOMED Code( s): 62181070 Comment: Likely secondary to HCTZ. Aggressively replace K. (3) HTN (hypertension) Current Visit: Yes Status: Acute Code(s): I10 - ESSENTIAL (PRIMARY) HYPERTENSION SNOMED Code(s): 27049154 Comment: BP is under good control. Continue amlodipine. HCTZ and lisinopril held on admission-monitor BP for now. (4) Bipolar 1 disorder Current Visit: Yes Status: Acute Code(s): F31.9 - BIPOLAR DISORDER, UNSPECIFIED SNOMED Code(s): 720259444 Comment: Continue home medication regimen for now. ? if some of her confusion may be related to her psychiatric medications. (5) Depression Current Visit: Yes Status: Acute Code(s): F32.9 - MAJOR DEPRESSIVE DISORDER , SINGLE EPISODE, UNSPECIFIED SNOMED Code(s): 21988742 Comment: Continue home medication regimen. (6) HLD (hyperlipidemia) Current Visit: Yes Status: Acute Code(s): E78.5 - HYPERLIPIDEMIA, UNSPECIFIED SNOMED Code(s): 87162917 Comment: Continue lipitor. (7) DVT prophylaxis Current Visit: Yes Status: Acute Code(s): OBZ2995 - SNOMED Code(s): 958569339 Comment: SQ heparin (8) Full code status Current Visit: Yes Status: Acute Code(s): Z78.9 - OTHER SPECIFIED HEALTH STATUS SNOMED Code(s): 854000393
[2017-01-11 09:57] LABS: Albumin 3.3 g/dL (3.2-5.2); Direct Bilirubin 0.2 mg/dL (0.03-0.18); Globulin 2.2 g/dL (2-4); Indirect Bilirubin 0.4 mg/dL (0.3-1.0); Total Bilirubin 0.6 mg/dL (0.2-1.0); Total Protein 5.5 g/dL (6.4-8.9)
--- NOTE | 2017-01-11 12:12 | RAD ---
HISTORY: Mucosal thickening of the gallbladder noted on CT COMPARISONS: CT dated January 10, 2017 TECHNIQUE: Multiple transverse and longitudinal ultrasound images were obtained of the right upper quadrant of the abdomen using grayscale and color Doppler imaging. FINDINGS: LIVER: The liver is diffusely echogenic and coarse in echotexture, with decreased acoustic transmission. The liver is otherwise normal in shape, size, and contour. There is normal hepatopedal flow of the portal vein on Doppler imaging. BILIARY TREE: There is no intrahepatic or extrahepatic biliary dilatation. The common duct measures 0.2 cm. GALLBLADDER: The gallbladder is distended. Multiple shadowing echogenic foci consistent with gallstones are noted. This likely accounts for the apparent L thickening noted on CT. There is no gallbladder wall thickening, pericholecystic fluid, or sonographic [place] sign. PANCREAS: The pancreas is obscured by overlying bowel gas. RIGHT KIDNEY: The right kidney is normal in shape, size, contour, and echogenicity. There is no hydronephrosis or nephrolithiasis. The right kidney measures 9.5 x 5 x 5.3 cm. AORTA AND IVC: The aorta and IVC are unremarkable. FLUID: There are no pleural effusions. There is no free fluid within the hepatorenal recess. OTHER FINDINGS: None. IMPRESSION: 1. CHOLELITHIASIS, WITH MULTIPLE STONES NOTED DEPENDENTLY TOWARDS THE NECK, LIKELY ACCOUNTING FOR THE APPARENT GALLBLADDER WALL THICKENING NOTED ON CT. NO SONOGRAPHIC FEATURES OF ACUTE CHOLECYSTITIS. 2. FATTY INFILTRATION OF THE LIVER.
--- NOTE | 2017-01-11 15:16 | CONS ---
CC: Dr. Langford NEUROLOGY CONSULTATION: DATE OF CONSULT: 01/11/17 REFERRING PHYSICIAN: Dr. Romero. PRIMARY CARE PROVIDER: Dr. Cam. LOCATION: She is an inpatient, room 437. CHIEF COMPLAINT: Confusion. INTERVAL HISTORY: Candy Reza is a 71-year-old woman admitted yesterday with confusion. She is accompanied by a friend who has known her for many years. She is a poor historian, but is able t o provide some details. Apparently she was acting very confused at her home in [facility] and was trying to catch a bus to go to her home, which she has not lived in for decades. She was brought [facility] the emergency room because of her confusion, was admitted. She was not able to give a good list ing of medications or if she takes them properly, but apparently there is an aide or a nurse who com es in once a week and lays out her pills for her. Her medication list is a little unusual and again she is not able to confirm for me what she actually takes or if she forgets them or not. She was a lso just in the emergency room a couple of days ago when she had an episode of unresponsiveness at [facility]. It was apparently observed by others and there is a question of syncope versus sei zures according to Dr. Salas's emergency room visit note. There is no history of seizures in the [facility], but she has multiple falls. A friend has a list of falls and there has been at least half a doz en in the last 1 to [address] Ana Langford and I was able to access the last office no te from October. She was first evaluated by Dr. Langford in 2014 when she presented with a similar pic ture of confusion. She had psychiatric problems and at least mild cognitive impairment with superim posed anxiety. There is also a question of a stroke a couple of years ago when she first moved to [facility] according to her friend. 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 She also was having difficulty walking and has used a walker. Imaging reviewed from the current electronic medical records indicates a fairly dif fuse multifocal white matter disease on imaging. A CAT scan this admission is consistent with chron ic subcortical small vessel disease as well. She has not had any episodes of loss of consciousness this admission. Her laboratory workup has been notable, however, for hypokalemia with her potassium this morning just 2.6, somewhat low magnesium at 1.7, and calcium at 8.5. Mildly elevated liver en zymes with AST 45 and ALT 74, but with a normal ammonia at 47. TSH yesterday was normal. Tox scree n from yesterday was negative for alcohol. She has been afebrile throughout this particular [facility] stay and her vital signs have been fairly unremarkable. PAST MEDICAL HISTORY: Notable for bipolar disorder, possible stroke and at least subcortical extens pacheco vascular disease, hyperlipidemia, and tremors. PAST SURGICAL HISTORY: 1. She has had a hip arthroplasty. 2. Tonsillectomy. MEDICATIONS: According to Jared Saini's admission note, which was taken from her home med sheet a nd is not currently in the chart, include: 1. Geodon 60 mg p.o. every day. 2. Hydrochlorothiazide 50 mg p.o. every day. 3. Seroquel 150 mg p.o. every day. 4. Prozac 20 mg p.o. t.i.d. 5. Alprazolam 1 mg p.o. q.h.s. 6. Wellbutrin 450 mg every day. 7. Amlodipine 10 mg p.o. every day. 8. Plavix 75 mg p.o. every day. 9. Lipitor 20 mg p.o. every day. ALLERGIES: According to computer records, she is allergic to ASPIRIN, LAMOTRIGINE, PENICILLIN. FAMILY HISTORY: Negative for seizures. Her father had a stroke. SOCIAL HISTORY: She lives in [facility] and moved there within the last year because she could no longer care for herself at home. She had come to [place] because she could not care for herself ind ependently where she was previously and she has friends in the area. She has a brother in [facility] nd a sister in [place]. She used to smoke. According to computer records, she rarely drinks al cohol. REVIEW OF SYMPTOMS: Negative for gastrointestinal problems, recent change in weight, fevers or chil ls, recent coughs or flu's. She has had multiple falls with her friend listing at least 4 in the . She found herself on the floor, woke up from bed on December 15 with a head laceration requir ing kvng. No recent diarrhea or vomiting. She gets dizzy when she falls sometimes and sometimes she falls and does not know why. No history of heart disease. PHYSICAL EXAMINATION: She is well-nourished, overweight, and well-hydrated. Temperature 98.1 orally , blood pressure 119/55, heart rate in the 60s, and in sinus on the monitor. Respiratory rate 18 an d oxygen saturation 94% on room air. Heart is in a regular rate and rhythm without murmurs heard. Carotid pulses are present and there are no cervical bruits. Oral mucosa is moist and there is no o ral trauma. Her lungs are clear. Neurologic Exam: Pupils react equally from 3 to 2 mm. Eye movements are normal. Visual baker are full to confrontation. Funduscopic exam is normal. Facial musculature is symmetric without hypomim ia. Facial sensation to light touch is normal. Speech is clear and voice is slightly tremulous. S he is hard of hearing bilaterally. Motor exam reveals some paratonia but no spasticity or rigidity. She has reasonably good strength p roximally and distally in upper and lower extremities. There is no pronator drift. She has a high frequency, somewhat irregular, sustention tremor and action tremor in both hands symm etrically. There may be some mini-myoclonus in the fingers. There is no asterixis. Reflexes are quite brisk diffusely. Plantars are flexor bilaterally. I did not attempt to ambulate her. Sensory exam in the limbs is normal for age. She is alert and inattentive. She is oriented to person and initially said she was in the [place] use, but then corrects herself. She is oriented to time other than missing the calendar date, but n otes the end of December. She is able to recall 2/3 items after several minutes. She has poor attention and concentration. Language is fluent, but then she has an episode near the end where we were talk ing and discussing her situation, where has great difficulty producing words for about 30 seconds. DIAGNOSTIC STUDIES/LAB DATA: I reviewed the CT of her brain images by myself. Also, I looked at her EKG and she has a very prolonged QT corrected at 635. Looked at her older EKGs and she has had pro longed QTs going back to 2014 but they have gotten progressively more prolonged. IMPRESSION: My concern is that in addition to mild cognitive impairment from cerebrovascular diseas e, Mrs. Reza may be suffering confusion from polypharmacy. I am specifically concerned about h er Wellbutrin, Geodon, Prozac, and Seroquel combination. Also, although she is supposedly on Proza c 20 mg 3 times per day at home, that is not a recommended pharmacological regimen and looking at Dr Ray Langford's note from October, she was on 40 mg once per day and was not on Geodon at all. Another co ncern would be a seizure. She had an episode just a few days ago of loss of consciousness, possibly with convulsive activity. Her high doses of Wellbutrin as well as several other medications could lower her seizure threshold. She is not currently on donepezil, but according to admission note, dmitry ahumada was on it which could further lower her seizure threshold. I would like to decrease her Prozac to 20 mg, Wellbutrin to 150 mg, Geodon to 20 mg. I will discuss with Dr. Romero her QT prolongation and currently she is aggressively trying to get a potassium lev el, which clearly will be important in that setting. I will arrange for an EEG but we will hold off on anticonvulsants until she has a clinical event or EEG shows epileptiform discharges or propensit y. I will follow her with you. [id number]/[facility] #: [id number]
[2017-01-11] MEDS: Ziprasidone * 20 MG CAP (generic Geodon) PO SCH (20:41)
[2017-01-11] MEDS: QUEtiapine TAB* 100 MG PO SCH (20:41)
[2017-01-11] MEDS: Atorvastatin* 20 MG TAB PO SCH (20:41)
[2017-01-11 21:01] LABS: Potassium 3.5 mmol/L (3.5-5.0)
[2017-01-12] MEDS: Heparin VIAL(*) 5000 UNITS/ML VIAL (FIVE THOUSAND) SUBCUT SCH ×3 (05:30→21:06)
[2017-01-12] MEDS: FLUoxetine CAP* 20 MG PO SCH (09:58)
[2017-01-12] MEDS: Clopidogrel TAB* 75 MG PO SCH (09:58)
[2017-01-12] MEDS: amLODIPine TAB* 5 MG PO SCH (09:58)
[2017-01-12] MEDS: BuPROPion XL* 150 MG TAB.XL PO SCH (09:59)
--- NOTE | 2017-01-12 13:30 | CONS ---
NEUROLOGY FOLLOWUP NOTE: DATE OF FOLLOWUP: 01/12/2017. HOSPITALIST: Dr. Romero. LOCATION: Room #437. CHIEF COMPLAINT: Confusion. INTERVAL HISTORY: Since yesterday, Ms. Reza feels well. She is now accompanied by three of her friends today. One of her friends has a medication list, which we went over. She was on donepezil 5 mg once per day, which was not continued here in the hospital. She was indeed on fluoxetine 20 mg 3 times per day despite of the oddity of that regimen. Her other medicines are listed in the record. We went over the episode of loss of consciousness, which occurred on the and resulted in an emergency room visit. None of her friends were present. She does not recall it at all. We went over her tremor, which she still has. She has had it as far back as when she was still working. 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 There is no family history of tremor in her parents although her mother young of ovarian cancer and no tremor in either of her 2 siblings. She has been up, walking to the bathroom today, but not farther. MEDICATIONS: Medications were reviewed and she is on, 1. Alprazolam 1 mg p.o. q.h.s. p.r.n. anxiety. 2. Amlodipine 10 mg p.o. daily. 3. Atorvastatin 20 mg p.o. daily. 4. Bupropion XL 150 mg p.o. daily. 5. Plavix 75 mg p.o. daily. 6. Fluoxetine 20 mg p.o. daily. 7. Zofran 4 mg IV q. 6 hours p.r.n. nausea. 8. Geodon 20 mg p.o. q.h.s. 9. Quetiapine 150 mg p.o. q.h.s. PHYSICAL EXAMINATION: She is well nourished and well hydrated. She remains afebrile, last temperature 97.9 orally. Blood pressure 115/60, heart rate running in the 60s. She is alert in good spirits. She has poor recollection of recent historical details. Her language is fluent. There is no lapses in attention and concentration otherwise. Eye movements are full. She has a moderate, fairly symmetrical, suspension and action tremor in both hands. There is no rest tremor. There is no hypomimia. I did not attempt to walk her. DIAGNOSTIC STUDIES/LAB DATA: New laboratory data from today is notable for normal CBC, chemistry profile with her potassium up to 3.5 and normal sodium. Magnesium has not been rechecked yet. EEG was done yesterday and I reviewed it. It reveals bihemispheric slowing as well as occasional poorly formed sharp waves in the left temporal region. They were not clearly of epileptiform character and there were no clinical events. IMPRESSION: Syncope or seizure superimposed on chronic cerebrovascular induced mild cognitive impairment. I think cutting back the medication is adequate for now and I do not recommend any anticonvulsant, unless she is a clinical seizure. Recommend rechecking her EKG as her QT was very prolonged yesterday since than her potassium has been corrected in several medications have been changed. It will take a long time for the fluoxetine and lesser time, but some significant duration, for other medical levels to drop. Recommend rechecking her magnesium as that was low when she came in as well that has been supplemented. I would recommend having Physical Therapy walk her before deciding whether or not she is safe for discharge. I would recommend discharging her on the current medical regimen and not restarting donepezil either as that can slow heart rate as well as lower seizure threshold. CC: Dr. Cam* [id number]/[facility] #: [id number] [facility] CENTERMundo
--- NOTE | 2017-01-12 13:39 | EEG ---
ELECTROENCEPHALOGRAM REPORT: DATE OF STUDY: 01/11/17 REFERRING PROVIDER: Dr. Lynch. LOCATION: She is an inpatient, room #437-. CHIEF COMPLAINT: Episodes of confusion and word finding difficulty. MEDICATIONS: Include: 1. Alprazolam. 2. Prozac. 3. Wellbutrin. 4. Plavix. 5. Geodon. 6. Seroquel. REPORT: This 16-channel EEG is remarkable for background activity consisting of posterior alpha rhythm of about 8 to 9 cycles per second which is symmetric. Fairly abundant low voltage beta rhythms are seen bifrontally and centrally. The patient is awake. Muscle artifact is seen not infrequently particularly early in the tracing. Rhythmic 4 cycles per second central delta rhythms are seen episodically with shifting asymmetries, sometimes more prominent in the left hemisphere and sometimes in the right parasagittal area. The patient is clinically awake. Activation procedures were not attempted. At times low voltage, phase reversing, sharp waves are seen from the left anterior or mid temporal region. There were no clinical events described. CLINICAL IMPRESSION: Abnormal EEG due to generalized slowing of background rhythms consistent with diffuse cerebral dysfunction. There are poorly formed sharp waves seen from the left temporal region suggesting the possibility of focal pathology in the left temporal region as well as a possible left epileptiform focus in the region consistent with a clinical diagnosis. CC: Dr. Romero* [id number]/[facility] #: [id number] MARY
[2017-01-12] MEDS ORDERED: Potassium Chlor TAB* 20 MEQ TAB.ER PO ONE (14:03)
--- NOTE | 2017-01-12 14:20 | PN ---
Subjective Date of Service: 01/12/17 Interval History: CC: AMS Pt is feeling well. She states she feels less confused today. She states she only remembers bits and pieces of the last week. She denies any pain or SOB. Family History: Unchanged from Admission Social History: Unchanged from Admission Past Medical History: Unchanged from Admission Objective Active Medications: Acetaminophen (Tylenol Tab*) 650 mg PO Q4H PRN PRN Reason: FEVER/PAIN Alprazolam (Xanax Tab*) 1 mg PO BEDTIME PRN PRN Reason: ANXIETY Amlodipine Besylate (Norvasc Tab*) 10 mg PO DAILY [facility] Last Admin: 01/12/17 09:58 Dose: 10 mg Atorvastatin Calcium (Lipitor*) 20 mg PO 2100 [facility] Last Admin: 01/11/17 20:41 Dose: 20 mg Bupropion HCl (Wellbutrin Xl *) 150 mg PO DAILY [facility] Last Admin: 01/12/17 09:59 Dose: 150 mg Clopidogrel Bisulfate (Plavix Tab*) 75 mg PO DAILY [facility] Last Admin: 01/12/17 09:58 Dose: 75 mg Fluoxetine HCl (Prozac Cap*) 20 mg PO DAILY [facility] Last Admin: 01/12/17 09:58 Dose: 20 mg Heparin Sodium (Porcine) (Heparin Vial(*)) 5,000 units SUBCUT Q8HR [facility] Last Admin: 01/12/17 13:32 Dose: 5,000 units Magnesium Sulfate 3 gm/ Sodium (Chloride) 106 mls @ 53 mls/hr IVPB ONCE ONE Stop: 01/12/17 16:04 Ondansetron HCl (Zofran Inj*) 4 mg IV Q6H PRN PRN Reason: NAUSEA Quetiapine Fumarate (Seroquel Tab*) 150 mg PO BEDTIME [facility] Last Admin: 01/11/17 20:41 Dose: 150 mg Ziprasidone (Geodon (Generic) *) 20 mg PO BEDTIME [facility] Last Admin: 01/11/17 20:41 Dose: 20 mg Vital Signs 01/11/17 01/11/17 01/12/17 15:27 19:58 00:11 Temperature 98.8 F 98.0 F 98.2 F Pulse Rate 71 45 67 Respiratory 20 18 16 Rate Blood Pressure 132/59 125/59 124/59 (mmHg) O2 Sat by Pulse 94 92 97 Oximetry 01/12/17 01/12/17 01/12/17 02:30 04:08 07:30 Temperature 98.7 F 97.9 F Pulse Rate 67 63 Respiratory 16 16 Rate Blood Pressure 141/69 115/60 (mmHg) O2 Sat by Pulse 97 96 93 Oximetry 01/12/17 08:00 Temperature Pulse Rate Respiratory 16 Rate Blood Pressure (mmHg) O2 Sat by Pulse Oximetry Oxygen Devices in Use Now: None Appearance: Elderly female sitting up in bed, NAD Eyes: No Scleral Icterus Ears/Nose/Mouth/Throat: Mucous Membranes Moist Respiratory: Symmetrical Chest Expansion and Respiratory Effort, Clear to Auscultation Cardiovascular: NL Sounds; No Murmurs; No JVD, RRR, No Edema Abdominal: NL Sounds; No Tenderness; No Distention Extremities: No Clubbing, Cyanosis Skin: No Rash or Ulcers, No Nodules or Sclerosis Neurological: - - alert and oriented to place, situation; much more interactive in conversation Result Diagrams: 01/11/17 06:45 01/11/17 20:29 Additional Lab and Data: Lab Results 01/10/17 01/10/17 01/10/17 Range/Units 17:45 17:45 17:45 WBC 10.1 (3.5-10.8) 10^3/ul RBC 4.66 (4.0-5.4) 10^6/ul Hgb 13.9 (12.0-16.0) g/dl Hct 42 (35-47) % MCV 90 (80-97) fL MCH 30 (27-31) pg MCHC 33 (31-36) g/dl RDW 14 (10.5-15) % Plt Count 229 (150-450) 10^3/ul MPV 9 (7.4-10.4) um3 Neut % (Auto) 82.8 (38-83) % Lymph % (Auto) 10.2 L (25-47) % [place] % (Auto) 6.6 (1-9) % Eos % (Auto) 0.1 (0-6) % Baso % (Auto) 0.3 (0-2) % Absolute Neuts (auto) 8.4 H (1.5-7.7) 10^3/ul Absolute Lymphs (auto) 1.0 (1.0-4.8) 10^3/ul Absolute Monos (auto) 0.7 (0-0.8) 10^3/ul Absolute Eos (auto) 0 (0-0.6) 10^3/ul Absolute Basos (auto) 0 (0-0.2) 10^3/ul Absolute Nucleated RBC 0.01 10^3/ul Nucleated RBC % 0.1 INR (Anticoag Therapy) 1.01 (0.89-1.11) Sodium 143 (133-145) mmol/L Potassium 2.8 L (3.5-5.0) mmol/L Chloride 103 (101-111) mmol/L Carbon Dioxide 28 (22-32) mmol/L Anion Gap 12 H (2-11) mmol/L BUN 27 H (6-24) mg/dL Creatinine 1.43 H (0.51-0.95) mg/dL Est GFR ( Amer) 46.7 (>60) Est GFR (Non-Af Amer) 36.3 (>60) BUN/Creatinine Ratio 18.9 (8-20) Glucose 165 H (70-100) mg/dL Lactic Acid (0.5-2.0) mmol/L Calcium 10.3 (8.6-10.3) mg/dL Magnesium 1.7 L (1.9-2.7) mg/dL Total Bilirubin 0.80 (0.2-1.0) mg/dL AST 63 H (13-39) U/L ALT 103 H (7-52) U/L Alkaline Phosphatase 87 (34-104) U/L Troponin I 0.01 (<0.04) ng/mL Total Protein 7.2 (6.4-8.9) g/dL Albumin 4.3 (3.2-5.2) g/dL Globulin 2.9 (2-4) g/dL Albumin/Globulin Ratio 1.5 (1-3) TSH 1.16 (0.34-5.60) mcIU/mL Acetaminophen < 15 mcg/mL Serum Alcohol < 10 (<10) mg/dL 01/10/17 Range/Units 17:45 WBC (3.5-10.8) 10^3/ul RBC (4.0-5.4) 10^6/ul Hgb (12.0-16.0) g/dl Hct (35-47) % MCV (80-97) fL MCH (27-31) pg MCHC (31-36) g/dl RDW (10.5-15) % Plt Count (150-450) 10^3/ul MPV (7.4-10.4) um3 Neut % (Auto) (38-83) % Lymph % (Auto) (25-47) % [place] % (Auto) (1-9) % Eos % (Auto) (0-6) % Baso % (Auto) (0-2) % Absolute Neuts (auto) (1.5-7.7) 10^3/ul Absolute Lymphs (auto) (1.0-4.8) 10^3/ul Absolute Monos (auto) (0-0.8) 10^3/ul Absolute Eos (auto) (0-0.6) 10^3/ul Absolute Basos (auto) (0-0.2) 10^3/ul Absolute Nucleated RBC 10^3/ul Nucleated RBC % INR (Anticoag Therapy) (0.89-1.11) Sodium (133-145) mmol/L Potassium (3.5-5.0) mmol/L Chloride (101-111) mmol/L Carbon Dioxide (22-32) mmol/L Anion Gap (2-11) mmol/L BUN (6-24) mg/dL Creatinine (0.51-0.95) mg/dL Est GFR ( Amer) (>60) Est GFR (Non-Af Amer) (>60) BUN/Creatinine Ratio (8-20) Glucose (70-100) mg/dL Lactic Acid 1.6 (0.5-2.0) mmol/L Calcium (8.6-10.3) mg/dL Magnesium (1.9-2.7) mg/dL Total Bilirubin (0.2-1.0) mg/dL AST (13-39) U/L ALT (7-52) U/L Alkaline Phosphatase (34-104) U/L Troponin I (<0.04) ng/mL Total Protein (6.4-8.9) g/dL Albumin (3.2-5.2) g/dL Globulin (2-4) g/dL Albumin/Globulin Ratio (1-3) TSH (0.34-5.60) mcIU/mL Acetaminophen mcg/mL Serum Alcohol (<10) mg/dL Assess/Plan/Problems-Billing Ms Reza is a 71 yo F who has a h/o HTN, HLD, bipolar disorder and ? dementia who presented to the ER with c/o AMS. - Patient Problems (1) Confusion Current Visit: Yes Status: Acute Code(s): R41.0 - DISORIENTATION, UNSPECIFIED SNOMED Code(s): 224444832 Comment: Pt is improved today but unclear what precipitated this episode of confusion. She has had previous episodes of confusion in the past. ? related to high dose psychiatric medications in addition to having baseline cognitive dysfunction. Will monitor overnight and likely d/c pt home tomorrow. (2) Hypokalemia Current Visit: Yes Status: Acute Code(s): E87.6 - HYPOKALEMIA SNOMED Code( s): 78700146 Comment: Resolved. Will recheck tomorrow. (3) HTN (hypertension) Current Visit: Yes Status: Acute Code(s): I10 - ESSENTIAL (PRIMARY) HYPERTENSION SNOMED Code(s): 71596085 Comment: BP is under good control on amlodipine alone. Continue to hold HCTZ and lisinopril for now. (4) Bipolar 1 disorder Current Visit: Yes Status: Acute Code(s): F31.9 - BIPOLAR DISORDER, UNSPECIFIED SNOMED Code(s): 408636575 Comment: Medications have been reduced as recommended by Dr. Lynch. She will need to follow up with psychiatry as an outpatient to ensure she is stable on the reduced medication regimen. (5) Depression Current Visit: Yes Status: Acute Code(s): F32.9 - MAJOR DEPRESSIVE DISORDER , SINGLE EPISODE, UNSPECIFIED SNOMED Code(s): 59266077 Comment: Continue reduced dose of prozac. (6) HLD (hyperlipidemia) Current Visit: Yes Status: Acute Code(s): E78.5 - HYPERLIPIDEMIA, UNSPECIFIED SNOMED Code(s): 49746209 Comment: Continue lipitor. (7) DVT prophylaxis Current Visit: Yes Status: Acute Code(s): LKM2378 - SNOMED Code(s): 294307150 Comment: SQ heparin (8) Full code status Current Visit: Yes Status: Acute Code(s): Z78.9 - OTHER SPECIFIED HEALTH STATUS SNOMED Code(s): 679891855
[2017-01-12] MEDS: Ziprasidone * 20 MG CAP (generic Geodon) PO SCH (21:05)
[2017-01-12] MEDS: Atorvastatin* 20 MG TAB PO SCH (21:05)
[2017-01-12] MEDS: QUEtiapine TAB* 100 MG PO SCH (21:05)
[2017-01-13] MEDS: Heparin VIAL(*) 5000 UNITS/ML VIAL (FIVE THOUSAND) SUBCUT SCH (06:21)
[2017-01-13 06:29] LABS: BUN/Creatinine Ratio 15.7 (8-20); Calcium 8.3 mg/dL (8.6-10.3); EGFR African American 68.9 (>60); EGFR Non-African American 53.6 (>60); Potassium 3.5 mmol/L (3.5-5.0)
[2017-01-13 08:08] VITALS: BP 128/60
[2017-01-13] MEDS: amLODIPine TAB* 5 MG PO SCH (08:19)
[2017-01-13] MEDS: Clopidogrel TAB* 75 MG PO SCH (08:19)
[2017-01-13] MEDS: BuPROPion XL* 150 MG TAB.XL PO SCH (08:19)
[2017-01-13] MEDS: FLUoxetine CAP* 20 MG PO SCH (08:19)
[2017-01-13] MEDS ORDERED: Pneumococcal Vac Polyvalent* 0.5 ML VIAL IM ONE (09:00)
--- NOTE | 2017-01-13 14:23 | PN ---
Subjective Date of Service: 01/13/17 Interval History: Pt is feeling well. She states she is anxious to go home. Her friends state that if you talk to the patient for any period of time you realize that she is still confused. Nursing however notes that she answered all of her orientation questions accurately and has been able to recall events of the last couple days. Family History: Unchanged from Admission Social History: Unchanged from Admission Past Medical History: Unchanged from Admission Objective Active Medications: Acetaminophen (Tylenol Tab*) 650 mg PO Q4H PRN PRN Reason: FEVER/PAIN Alprazolam (Xanax Tab*) 1 mg PO BEDTIME PRN PRN Reason: ANXIETY Amlodipine Besylate (Norvasc Tab*) 10 mg PO DAILY [facility] Last Admin: 01/13/17 08:19 Dose: 10 mg Atorvastatin Calcium (Lipitor*) 20 mg PO 2100 [facility] Last Admin: 01/12/17 21:05 Dose: 20 mg Bupropion HCl (Wellbutrin Xl *) 150 mg PO DAILY [facility] Last Admin: 01/13/17 08:19 Dose: 150 mg Clopidogrel Bisulfate (Plavix Tab*) 75 mg PO DAILY [facility] Last Admin: 01/13/17 08:19 Dose: 75 mg Fluoxetine HCl (Prozac Cap*) 20 mg PO DAILY [facility] Last Admin: 01/13/17 08:19 Dose: 20 mg Heparin Sodium (Porcine) (Heparin Vial(*)) 5,000 units SUBCUT Q8HR [facility] Last Admin: 01/13/17 06:21 Dose: 5,000 units Ondansetron HCl (Zofran Inj*) 4 mg IV Q6H PRN PRN Reason: NAUSEA Quetiapine Fumarate (Seroquel Tab*) 150 mg PO BEDTIME [facility] Last Admin: 01/12/17 21:05 Dose: 150 mg Ziprasidone (Geodon (Generic) *) 20 mg PO BEDTIME [facility] Last Admin: 01/12/17 21:05 Dose: 20 mg Vital Signs 01/12/17 01/12/17 01/12/17 15:42 20:00 20:17 Temperature 98.4 F 99.5 F Pulse Rate 72 72 Respiratory 18 18 20 Rate Blood Pressure 129/63 145/64 (mmHg) O2 Sat by Pulse 95 97 Oximetry 01/13/17 01/13/17 01/13/17 00:22 04:17 08:00 Temperature 99.8 F 98.7 F Pulse Rate 68 70 Respiratory 16 16 16 Rate Blood Pressure 118/53 131/67 (mmHg) O2 Sat by Pulse 98 95 Oximetry 01/13/17 08:05 Temperature 97.4 F Pulse Rate 64 Respiratory 19 Rate Blood Pressure 128/60 (mmHg) O2 Sat by Pulse 96 Oximetry Oxygen Devices in Use Now: None Appearance: Elderly female sitting up in bed, NAD Eyes: No Scleral Icterus Ears/Nose/Mouth/Throat: Mucous Membranes Moist Respiratory: Symmetrical Chest Expansion and Respiratory Effort, Clear to Auscultation Cardiovascular: NL Sounds; No Murmurs; No JVD, RRR, No Edema Abdominal: NL Sounds; No Tenderness; No Distention Extremities: No Clubbing, Cyanosis Skin: No Rash or Ulcers, No Nodules or Sclerosis Neurological: Alert and Oriented x 3, - - remembers me from yesterday Result Diagrams: 01/11/17 06:45 01/13/17 05:21 Additional Lab and Data: Lab Results 01/10/17 01/10/17 01/10/17 Range/Units 17:45 17:45 17:45 WBC 10.1 (3.5-10.8) 10^3/ul RBC 4.66 (4.0-5.4) 10^6/ul Hgb 13.9 (12.0-16.0) g/dl Hct 42 (35-47) % MCV 90 (80-97) fL MCH 30 (27-31) pg MCHC 33 (31-36) g/dl RDW 14 (10.5-15) % Plt Count 229 (150-450) 10^3/ul MPV 9 (7.4-10.4) um3 Neut % (Auto) 82.8 (38-83) % Lymph % (Auto) 10.2 L (25-47) % [place] % (Auto) 6.6 (1-9) % Eos % (Auto) 0.1 (0-6) % Baso % (Auto) 0.3 (0-2) % Absolute Neuts (auto) 8.4 H (1.5-7.7) 10^3/ul Absolute Lymphs (auto) 1.0 (1.0-4.8) 10^3/ul Absolute Monos (auto) 0.7 (0-0.8) 10^3/ul Absolute Eos (auto) 0 (0-0.6) 10^3/ul Absolute Basos (auto) 0 (0-0.2) 10^3/ul Absolute Nucleated RBC 0.01 10^3/ul Nucleated RBC % 0.1 INR (Anticoag Therapy) 1.01 (0.89-1.11) Sodium 143 (133-145) mmol/L Potassium 2.8 L (3.5-5.0) mmol/L Chloride 103 (101-111) mmol/L Carbon Dioxide 28 (22-32) mmol/L Anion Gap 12 H (2-11) mmol/L BUN 27 H (6-24) mg/dL Creatinine 1.43 H (0.51-0.95) mg/dL Est GFR ( Amer) 46.7 (>60) Est GFR (Non-Af Amer) 36.3 (>60) BUN/Creatinine Ratio 18.9 (8-20) Glucose 165 H (70-100) mg/dL Lactic Acid (0.5-2.0) mmol/L Calcium 10.3 (8.6-10.3) mg/dL Magnesium 1.7 L (1.9-2.7) mg/dL Total Bilirubin 0.80 (0.2-1.0) mg/dL AST 63 H (13-39) U/L ALT 103 H (7-52) U/L Alkaline Phosphatase 87 (34-104) U/L Troponin I 0.01 (<0.04) ng/mL Total Protein 7.2 (6.4-8.9) g/dL Albumin 4.3 (3.2-5.2) g/dL Globulin 2.9 (2-4) g/dL Albumin/Globulin Ratio 1.5 (1-3) TSH 1.16 (0.34-5.60) mcIU/mL Acetaminophen < 15 mcg/mL Serum Alcohol < 10 (<10) mg/dL 01/10/17 Range/Units 17:45 WBC (3.5-10.8) 10^3/ul RBC (4.0-5.4) 10^6/ul Hgb (12.0-16.0) g/dl Hct (35-47) % MCV (80-97) fL MCH (27-31) pg MCHC (31-36) g/dl RDW (10.5-15) % Plt Count (150-450) 10^3/ul MPV (7.4-10.4) um3 Neut % (Auto) (38-83) % Lymph % (Auto) (25-47) % [place] % (Auto) (1-9) % Eos % (Auto) (0-6) % Baso % (Auto) (0-2) % Absolute Neuts (auto) (1.5-7.7) 10^3/ul Absolute Lymphs (auto) (1.0-4.8) 10^3/ul Absolute Monos (auto) (0-0.8) 10^3/ul Absolute Eos (auto) (0-0.6) 10^3/ul Absolute Basos (auto) (0-0.2) 10^3/ul Absolute Nucleated RBC 10^3/ul Nucleated RBC % INR (Anticoag Therapy) (0.89-1.11) Sodium (133-145) mmol/L Potassium (3.5-5.0) mmol/L Chloride (101-111) mmol/L Carbon Dioxide (22-32) mmol/L Anion Gap (2-11) mmol/L BUN (6-24) mg/dL Creatinine (0.51-0.95) mg/dL Est GFR ( Amer) (>60) Est GFR (Non-Af Amer) (>60) BUN/Creatinine Ratio (8-20) Glucose (70-100) mg/dL Lactic Acid 1.6 (0.5-2.0) mmol/L Calcium (8.6-10.3) mg/dL Magnesium (1.9-2.7) mg/dL Total Bilirubin (0.2-1.0) mg/dL AST (13-39) U/L ALT (7-52) U/L Alkaline Phosphatase (34-104) U/L Troponin I (<0.04) ng/mL Total Protein (6.4-8.9) g/dL Albumin (3.2-5.2) g/dL Globulin (2-4) g/dL Albumin/Globulin Ratio (1-3) TSH (0.34-5.60) mcIU/mL Acetaminophen mcg/mL Serum Alcohol (<10) mg/dL Assess/Plan/Problems-Billing Ms Reza is a 71 yo F who has a h/o HTN, HLD, bipolar disorder and ? dementia who presented to the ER with c/o AMS. - Patient Problems (1) Confusion Current Visit: Yes Status: Acute Code(s): R41.0 - DISORIENTATION, UNSPECIFIED SNOMED Code(s): 541513389 Comment: ? progressive cognitive dysfunction. Follow up with Dr. Langford as outpatient. Continue reduced dose prozac and wellbutrin. I have recommended that she and her friends try to look into assisted living sooner rather than later as she likely needs more support at home. (2) Hypokalemia Current Visit: Yes Status: Acute Code(s): E87.6 - HYPOKALEMIA SNOMED Code( s): 03090880 Comment: Resolved. (3) HTN (hypertension) Current Visit: Yes Status: Acute Code(s): I10 - ESSENTIAL (PRIMARY) HYPERTENSION SNOMED Code(s): 39624306 Comment: BP is under fair control. Continue amlodipine and add back lisinopril. Continue to hold HCTZ. (4) Bipolar 1 disorder Current Visit: Yes Status: Acute Code(s): F31.9 - BIPOLAR DISORDER, UNSPECIFIED SNOMED Code(s): 276494185 Comment: Medications have been reduced as recommended by Dr. Lynch. She will need to follow up with psychiatry as an outpatient to ensure she is stable on the reduced medication regimen. (5) Depression Current Visit: Yes Status: Acute Code(s): F32.9 - MAJOR DEPRESSIVE DISORDER , SINGLE EPISODE, UNSPECIFIED SNOMED Code(s): 47993489 Comment: Continue reduced dose of prozac. (6) HLD (hyperlipidemia) Current Visit: Yes Status: Acute Code(s): E78.5 - HYPERLIPIDEMIA, UNSPECIFIED SNOMED Code(s): 93751692 Comment: Continue lipitor. (7) DVT prophylaxis Current Visit: Yes Status: Acute Code(s): IVY5636 - SNOMED Code(s): 955389146 Comment: SQ heparin (8) Full code status Current Visit: Yes Status: Acute Code(s): Z78.9 - OTHER SPECIFIED HEALTH STATUS SNOMED Code(s): 608372278 Status and Disposition: d/c home
--- NOTE | 2017-01-14 09:19 | DS ---
DISCHARGE SUMMARY: DATE OF ADMISSION: 01/10/17 DATE OF DISCHARGE: 01/13/17 PRIMARY CARE PROVIDER: Dr. Cam. NEUROLOGIST: Dr. Langford. PRINCIPAL DIAGNOSIS: Altered mental status - likely progression of underlying cognitive impairment with possible worsening related to high-dose psychiatric medications. SECONDARY DIAGNOSES: 1. Bipolar disorder. 2. Hyperlipidemia. 3. Hypertension. 4. Depression. 5. Essential tremor. 6. Dementia. DISCHARGE MEDICATIONS: 1. Geodon 60 mg p.o. q.h.s. 2. Seroquel 150 mg p.o. q.h.s. 3. Lisinopril 40 mg p.o. daily. 4. Plavix 75 mg p.o. daily. 5. Lipitor 20 mg p.o. q.h.s. 6. Amlodipine 10 mg p.o. daily. 7. Prozac 20 mg p.o. daily (reduced dose). 8. Wellbutrin XL 150 mg p.o. daily (reduced dose). DISCONTINUED MEDICATION: Aricept. HOSPITAL COURSE: Ms. Reza is a 71-year-old female, who was brought to the emergency room on 01/10/17 after she was noted to be markedly confused. The report is from the patient's friend. Reportedly, the patient was sitting on a bench outside of [facility] waiting for a bus to pick her up to take her to her former house from 30 years ago. A resident at [facility] noted her to be sitting there and finding this odd, got her back up to the room; however, the patient then went back downstairs to sit on the bench again. The patient's friend was contacted and ultimately picked up the patient. She was taken to [facility] for ice cream and then was brought to the hospital for evaluation. The patient's friends note that she has had significant issues with her memory. They were concerned. They wanted her evaluated in the ER. She had been in the ER the prior to admission with concerns of possible seizure as she had altered mental status and fall. At that time, she was sent home. During the course of this hospitalization, the plan was to evaluate for possible causes for an acute change. She underwent infectious workup including CT of the chest , abdomen, and pelvis which questioned gallbladder wall thickening as well as urinalysis. The urinalysis was negative. To follow up on the gallbladder wall thickening, gallbladder ultrasound was performed, which in fact did not reveal gallbladder wall thickening, but multiple gallstones noted dependently towards the neck of the gallbladder likely accounting for the apparent gallbladder wall thickening on CT scan. She was noted to have a low potassium on admission as well as an elevated creatinine. Her hydrochlorothiazide was discontinued, which felt likely contributed to those findings. She was aggressively repleted in terms of her potassium. Ultimately, no clear cause was identified for the patient's reported acute worsening. I did ask for a Neurology consultation. Dr. Lynch followed the patient on 01/11/17. He felt that in addition to mild cognitive impairment from cerebrovascular disease, she likely suffering with confusion from polypharmacy. She is on high-dose psychiatric medications. Her Prozac dose was decreased from 60 mg a day to 20 mg a day and her Wellbutrin was decreased from 450 mg a day to 150 mg a day. The patient did undergo an EEG , which revealed generalized slowing consistent with diffuse cerebral dysfunction. There were poorly formed sharp waves seen in the left temporal region suggesting the possibility of focal pathology in the left temporal region as well as possible left epileptiform focus in the region consistent with a clinical diagnosis. It was not recommended that antiepileptics be started at this time. However, Aricept was discontinued as they can lower seizure threshold and again her Wellbutrin dose was decreased significantly. On the day of discharge, the patient is much more alert and conversant. Her friends still believe that she is confused; however, she is oriented to person, place, and time as well as able to finally recall some events over the last several days. At this point, it is felt that she is stable for discharge home with close monitoring by friends and family. We did discuss looking into assisted living facility as she likely is going to have progression of her cognitive impairment and she should be prepared that she will need more assistance from what she can obtain at [facility]. For now, visiting nurses will be arranged, however. FOLLOWUP CONCERNS: The patient is being discharged home today, 01/13/17. She is to follow up with Dr. Cam in the next 4 to [address] Langford on at 11:30 a.m. ACTIVITY LEVEL: As tolerated. DIET: Regular. CONDITION AT DISCHARGE: Stable. TIME SPENT: Thirty-five minutes was spent discharging this patient. CC: Dr. Cam; Dr. Langford* [id number]/CPS #: [id number] [facility]ENTER[facility]
== END 2017-01-13 15:12 | disposition home or self-care (01) | DRG 57 ==
LOC: ED 17:09 → MEDTELE 19:36 → OBSVTOIN 01-12 14:12
PROVIDERS: ADMIT Hospitalist; ATTEND Hospitalist
DX: G31.84 Mild cognitive impairment of uncertain or unknown etiology (principal); N17.9 Acute kidney failure, unspecified; G45.9 Transient cerebral ischemic attack, unspecified; E87.6 Hypokalemia; E83.42 Hypomagnesemia; T43.595A Adverse effect of other antipsychotics and neuroleptics, initial encounter; Y92.9 Unspecified place or not applicable; F31.9 Bipolar disorder, unspecified; E78.5 Hyperlipidemia, unspecified; I10 Essential (primary) hypertension; F32.9 Major depressive disorder, single episode, unspecified; G25.0 Essential tremor; Z96.642 Presence of left artificial hip joint; Z79.02 Long term (current) use of antithrombotics/antiplatelets; Z79.899 Other long term (current) drug therapy; Z88.6 Allergy status to analgesic agent; Z88.0 Allergy status to penicillin; Z88.8 Allergy status to other drugs, medicaments and biological substances; Z83.3 Family history of diabetes mellitus; Z82.3 Family history of stroke; Z87.891 Personal history of nicotine dependence; Z80.41 Family history of malignant neoplasm of ovary
CPT/HCPCS: 36415; 70450; 71010; 71260; 74177; 76705; 80048; 80051; 80053; 80076; 80320; 80329; 81003; 82140; 82570; 83605; 83735; 84300; 84443; 84484; 85025; 85610; 85652; 86140; 90732; 93005; 95816; A9270-GY; G0378; G0480; J1644; J3475; J3480; Q9967

== ENCOUNTER 2018-11-27 20:11 | Emergency (ER) | payer MEDICARE ==
--- NOTE | 2018-11-27 20:52 | ED ---
Syncope/Near Syncope - HPI Summary HPI Summary: This patient is a 73 year old female brought in by EMS presenting to [facility] with a chief complaint of syncope. The patient states she was in her kitchen when she started to experience dizziness. She says she has been experiencing intermittent dizziness for months, a couple times per week. She states when she feels dizzy she usually walks over to her kitchen counter to hold onto until it goes away, and that this time she did not make it and had a syncopal episode. She states she is currently not dizzy. She denies nausea. She has no symptoms at this time. - History Of Current Complaint Chief Complaint: EDSyncope Time Seen by Provider: 11/27/18 20:32 Hx Obtained From: Patient Onset/Duration: Sudden Onset Timing: Intermittent Episode Lasting Context: Unwitnessed Associated Signs And Symptoms: Dizzy - Risk Factors Dysrhythmia Risk Factors: Age Greater Than 45 - Allergies/Home Medications Allergies/Adverse Reactions: Allergies Allergy/AdvReac Type Severity Reaction Status Date / Time aspirin Allergy Unknown Verified 11/27/18 21:14 Reaction Details ibuprofen Allergy Unknown Verified 11/27/18 21:14 Reaction Details lamotrigine Allergy Unknown Verified 11/27/18 21:14 Reaction Details Penicillins Allergy Unknown Verified 11/27/18 21:14 Reaction Details PMH/Surg Hx/FS Hx/Imm Hx Endocrine/Hematology History: Denies: Hx Anticoagulant Therapy, Hx Diabetes, Hx Systemic Lupus Erythematosus, Hx Thyroid Disease Cardiovascular History: Reports: Hx Hypercholesterolemia, Hx Hypertension Denies: Hx Pacemaker/ICD Respiratory History: Denies: Hx Asthma, Hx Lung Cancer, Hx Pneumonia, Hx Pulmonary Embolism History: Denies: Hx Renal Disease Sensory History: Reports: Hx Contacts or Glasses - reading only, Hx Hearing Problem Denies: Hx Hearing Aid Opthamlomology History: Reports: Hx Contacts or Glasses - reading only Neurological History: Reports: Hx Dementia, Hx Transient Ischemic Attacks (TIA) - 12/29 Comment Only: Other Neuro Impairments/Disorders - Essential tremors Psychiatric History: Reports: Hx Anxiety, Hx Depression, Hx Bipolar Disorder Denies: Hx Panic Disorder - Cancer History Hx Chemotherapy: No Hx Radiation Therapy: No - Surgical History Surgery Procedure, Year, and Place: Right Hip replacement (2012);. tonsilectomy (1965) Infectious Disease History: No Infectious Disease History: Denies: History Other Infectious Disease, Traveled Outside the [place] in Last 30 Days - Family History Known Family History: Positive: Hypertension, Diabetes - Social History Alcohol Use: unknown Hx Substance Use: No Substance Use Type: Reports: None Hx Tobacco Use: No Smoking Status (MU): Former Smoker Review of Systems Negative: Nausea Neurological: Other - Resolved dizziness Positive: Syncope All Other Systems Reviewed And Are Negative: Yes Physical Exam - Summary Physical Exam Summary: VITAL SIGNS: Reviewed. GENERAL: Patient is a well-developed and nourished FEMALE who is lying comfortable in the stretcher. Patient is not in any acute respiratory distress. HEAD AND FACE: No signs of trauma. No ecchymosis, hematomas or skull depressions. No sinus tenderness. EYES: PERRLA, EOMI x 2, No injected conjunctiva, no nystagmus. EARS: Hearing grossly intact. Ear canals and tympanic membranes are within normal limits. MOUTH: Oropharynx within normal limits. NECK: Supple, trachea is midline, no adenopathy, no JVD, no carotid bruit, no c- spine tenderness, neck with full ROM. CHEST: Symmetric, no tenderness at palpation LUNGS: Clear to auscultation bilaterally. No wheezing or crackles. CVS: Regular rate and rhythm, S1 and S2 present, no murmurs or gallops appreciated. ABDOMEN: Soft, non-tender. No signs of distention. No rebound no guarding, and no masses palpated. Bowel sounds are normal. EXTREMITIES: FROM in all major joints, no edema, no cyanosis or clubbing. NEURO: Alert and oriented x 3. No acute neurological deficits. Speech is normal and follows commands. SKIN: Dry and warm Triage Information Reviewed: Yes Vital Signs On Initial Exam: Initial Vitals Temp Pulse Resp BP Pulse Ox 99.6 F 88 16 124/62 93 11/27/18 20:20 11/27/18 20:20 11/27/18 20:20 11/27/18 20:20 11/27/18 20:20 Vital Signs Reviewed: Yes Diagnostics - Vital Signs Vital Signs Temp Pulse Resp BP Pulse Ox 11/27/18 20:22 85 19 124/62 93 11/27/18 20:20 99.6 F 88 16 124/62 93 - Laboratory Result Diagrams: 11/27/18 21:36 11/27/18 21:36 Lab Statement: Any lab studies that have been ordered have been reviewed, and results considered in the medical decision making process. - CT Brain CT Interpretation Completed By: Radiologist Summary of CT Findings: 1. No acute intracranial findings or significant changes since prior. 2. Age-related atrophy and chronic white matter ischemic change. - EKG 2036 Cardiac Rate: NL EKG Rhythm: Sinus Rhythm - [address] Segment: Normal Ectopy: None Summary of EKG Findings: Normal axis, normal interval, no ischemic changes. Course/Dx Course Of Treatment: This patient is a 73 year old female brought in by EMS presenting to [facility] with a chief complaint of syncope. Labs were remarkable for hypokalemia and dehydration. Patient stated she does not eat well. Hypokalemia is likely due to lack of potassium intake. The patient will be discharged with instructions with a plan for treatment. The patient is agreeable with this plan. - Diagnoses Provider Diagnoses: Dehydration, Hypokalemia Discharge - Sign-Out/Discharge Documenting (check all that apply): Patient Departure - Discharge Patient Received Moderate/Deep Sedation with Procedure: No - Discharge Plan Condition: Stable Disposition: HOME Prescriptions: Potassium Chlor TAB* [Klor Con ER TAB 10 MEQ*] 10 meq PO DAILY #30 tab.er Patient Education Materials: Dehydration (ED), Hypokalemia (ED) Referrals: Jayson Cam MD [Primary Care Provider] - Additional Instructions: Increase citrus intake and eat at least one banana every day. Return to ED with any new or worsening symptoms. - Attestation Statements Document Initiated by Scribe: Yes Documenting Scribe: Kit Olivas Provider For Whom Sayda is Documenting (Include Credential): Williams Reynolds MD Scribe Attestation: Kit Bermeo, scribed for Williams Reynolds MD on 11/28/18 at 0207. Status of Scribe Document: Ready
[2018-11-27] MEDS ORDERED: NS 0.9% 1000 ML** 1,000 ML IV ONE (20:53)
[2018-11-27 21:43] LABS: ABS Basophils 0.1 10^3/ul (0-0.2); ABS Eosinophils 0.2 10^3/ul (0-0.6); ABS Lymphocytes 2.6 10^3/ul (1.0-4.8); ABS Monocytes 0.7 10^3/ul (0-0.8); ABS Neutrophils 5.1 10^3/ul (1.5-7.7); ABS Nucleated RBC 0 10^3/ul; Eosinophil % 2.6 %; Hematocrit 43 % (33-41); Hemoglobin 14.7 g/dL (12.0-16.0); Lymphocyte % 29.7 %; Mean Corpuscular HGB Conc 34 g/dL (31-36); Mean Corpuscular Hemoglobin 28 pg (27-31); Mean Corpuscular Volume 84 fL (80-97); Mean Platelet Volume 9.2 fL (7.4-10.4); Nucleated Red Blood Cells % 0; Platelet Count 214 10^3/uL (150-450); Red Blood Count 5.18 10^6 /uL (3.70-4.87); Red Cell Distribution Width 15 % (10.5-15); White Blood Count 8.7 10^3/uL (3.5-10.8)
[2018-11-27 21:52] LABS: Activated Partial Thrombo Time 26.7 seconds (26.0-36.3); INR 1.07 (0.77-1.02)
[2018-11-27 22:02] LABS: Albumin 3.8 g/dL (3.2-5.2); Albumin/Globulin Ratio 1.3 (1-3); BUN/Creatinine Ratio 28.3 (8-20); Calcium 9.6 mg/dL (8.6-10.3); EGFR Non-African American 35.5 (>60); Globulin 2.9 g/dL (2-4); Magnesium 1.5 mg/dL (1.9-2.7); Potassium 2.8 mmol/L (3.5-5.0); Total Bilirubin 0.7 mg/dL (0.2-1.0); Total Protein 6.7 g/dL (6.4-8.9)
[2018-11-27 22:05] LABS: Troponin I 0.03 ng/mL (<0.04)
[2018-11-27 22:16] LABS: TSH (Thyroid Stimulating Horm) 1.4 mcIU/mL (0.34-5.60)
[2018-11-28] MEDS ORDERED: Potassium Chlor TAB* 20 MEQ TAB.ER PO ONE ×2 (00:04→02:00)
[2018-11-28] MEDS ORDERED: NS 0.9% 1000 ML** 1,000 ML IV ONE (00:04)
[2018-11-28 03:02] VITALS: BP 123/64
== END 2018-11-28 03:04 | disposition home or self-care (01) ==
LOC: ED 20:11
DX: E86.0 Dehydration (principal); E87.1 Hypo-osmolality and hyponatremia; I10 Essential (primary) hypertension; E78.00 Pure hypercholesterolemia, unspecified; Z88.0 Allergy status to penicillin; Z87.891 Personal history of nicotine dependence
CPT/HCPCS: 36415; 70450; 80053; 83735; 84443; 84484; 85025; 85610; 85730; 93005; 96360; 96361; 99285; A9270-GY

== ENCOUNTER 2018-12-14 12:48 | Emergency (ER) | payer MEDICARE ==
[2018-12-14] MEDS ORDERED: NS 0.9% 1000 ML** 1,000 ML IV ONE (13:15)
[2018-12-14] MEDS ORDERED: Meclizine TAB* 12.5 MG PO ONE (13:15)
--- NOTE | 2018-12-14 13:37 | ED ---
HPI Cardiac - HPI Summary HPI Summary: Patient is a 73 y/o F presenting to ED via EMS with complaints of hypotension, SOB, dizziness onsetting earlier today. She reports that she had been walking a few blocks on her way to her psychiatrist's office when Sx onset. EMS reports that the patient had a systolic BP in 80s, patient was given fluids by EMS. In room, patient is BP 93/56, o2 95 on RA, pulse 87. In the room, the patient describes dizziness as room-spinning. She notes experiencing some confusion as well. Patient reports difficulty speaking in the room but states that she has been experiencing this Sx on and off for the past few years. She denies chest pain, MCCLURE, fever, palpitation, chills, recent cough, N/V, abdominal pain. Patient does endorse some recent diarrhea and decreased appetite but denies constipation. Hx includes htn, high cholesterol, right total hip replacement, bipolar, depression, anxiety. Associated severity is 2/10 on triage, nothing is noted to aggravate/alleviate Sx. Home medications and allergies are reviewed. - History of Current Complaint Chief Complaint: EDDizziness Stated Complaint: GENERAL ILLNESS/HYPOTENSIVE PER EMS Time Seen by Provider: 12/14/18 13:00 Hx Obtained From: Patient Onset/Duration: Started Hours Ago Timing: Constant Current Severity: Mild - associated severity is rated 2/10 Pain Intensity: 2 Pain Scale Used: 0-10 Numeric Character: Dyspnea at Exertion, Other: Aggravating Factor(s): Nothing Alleviating Factor(s): Nothing Associated Signs and Symptoms: Positive: Dizziness, Shortness of Breath, Other: - confusion, diarrhea, and decreased appetite endorsed; denies constipation. Negative: Chest Pain, Headaches, Fever, Chills, Palpitations, Cough, Productive Cough, Nonproductive Cough - Additional Pertinent History Primary Care Physician: [id number] - Allergy/Home Medications Allergies/Adverse Reactions: Allergies Allergy/AdvReac Type Severity Reaction Status Date / Time aspirin Allergy Unknown Verified 11/27/18 21:14 Reaction Details ibuprofen Allergy Unknown Verified 11/27/18 21:14 Reaction Details lamotrigine Allergy Unknown Verified 11/27/18 21:14 Reaction Details Penicillins Allergy Unknown Verified 11/27/18 21:14 Reaction Details Home Medications: Home Medications Acetylcysteine [Nac] 600 mg PO DAILY 12/14/18 [History Confirmed 12/14/18] Atorvastatin* [Lipitor*] 20 mg PO DAILY 12/14/18 [History Confirmed 12/14/18] Cholecalciferol TAB* [Vitamin D TAB*] 400 unit PO DAILY 12/14/18 [History Confirmed 12/14/18] Lisinopril/HCTZ 20/(NF) [Zestoretic 20(NF)] 2 tab PO QAM 12/14/18 [History Confirmed 12/14/18] Quetiapine Fumarate [Seroquel 400 MG] 400 mg PO BEDTIME 12/14/18 [History Confirmed 12/14/18] Zinc Gluconate [Zinc] 50 mg PO DAILY 12/14/18 [History Confirmed 12/14/18] busPIRone TAB* [Buspar TAB *] 22.5 mg PO BID 12/14/18 [History Confirmed ] PMH/Surg Hx/FS Hx/Imm Hx Endocrine/Hematology History: Denies: Hx Anticoagulant Therapy, Hx Diabetes, Hx Systemic Lupus Erythematosus, Hx Thyroid Disease Cardiovascular History: Reports: Hx Hypercholesterolemia, Hx Hypertension Denies: Hx Pacemaker/ICD Respiratory History: Denies: Hx Asthma, Hx Lung Cancer, Hx Pneumonia, Hx Pulmonary Embolism History: Denies: Hx Renal Disease Sensory History: Reports: Hx Contacts or Glasses - reading only, Hx Hearing Problem Denies: Hx Hearing Aid Opthamlomology History: Reports: Hx Contacts or Glasses - reading only Neurological History: Reports: Hx Dementia, Hx Transient Ischemic Attacks (TIA) - 12/29 Comment Only: Other Neuro Impairments/Disorders - Essential tremors Psychiatric History: Reports: Hx Anxiety, Hx Depression, Hx Bipolar Disorder Denies: Hx Panic Disorder - Cancer History Hx Chemotherapy: No Hx Radiation Therapy: No - Surgical History Surgery Procedure, Year, and Place: Right Hip replacement (2012);. tonsilectomy (1965) Infectious Disease History: No Infectious Disease History: Denies: History Other Infectious Disease, Traveled Outside the [place] in Last 30 Days - Family History Known Family History: Positive: Hypertension, Diabetes - Social History Alcohol Use: Occasionally Hx Substance Use: No Substance Use Type: Reports: None Hx Tobacco Use: No Smoking Status (MU): Former Smoker Review of Systems Negative: Fever, Chills Cardiovascular: Other - POSITIVE - REPORTED HYPOTENSION EMS Negative: Palpitations, Chest Pain Positive: Shortness Of Breath. Negative: Cough Gastrointestinal: Other - POSITIVE - DECREASED APPETITE; NEGATIVE - CONSTIPATION Positive: Abdominal Pain, Diarrhea. Negative: Vomiting, Nausea Neurological: Other - POSITIVE - DIZZINESS, CONFUSION Positive: Slurred Speech - CHRONIC, PATIENT STATES ON AND OFF FOR A FEW YEARS . Negative: Headache All Other Systems Reviewed And Are Negative: Yes Physical Exam - Summary Physical Exam Summary: VITAL SIGNS: Reviewed. GENERAL: Patient is a well-developed and nourished female who is lying comfortable in the stretcher. Patient is not in any acute respiratory distress. HEAD AND FACE: No signs of trauma. No ecchymosis, hematomas or skull depressions. No sinus tenderness. EYES: PERRLA, EOMI x 2, No injected conjunctiva, no nystagmus. EARS: Hearing grossly intact. Ear canals and tympanic membranes are within normal limits. MOUTH: Oropharynx within normal limits. NECK: Supple, trachea is midline, no adenopathy, no JVD, no carotid bruit, no c- spine tenderness, neck with full ROM. CHEST: Symmetric, no tenderness at palpation LUNGS: Clear to auscultation bilaterally. No wheezing or crackles. CVS: Regular rate and rhythm, S1 and S2 present, no murmurs or gallops appreciated. ABDOMEN: Soft, non-tender. No signs of distention. No rebound no guarding, and no masses palpated. Bowel sounds are normal. EXTREMITIES: FROM in all major joints, no edema, no cyanosis or clubbing. NEURO: Alert and oriented x 3. No acute neurological deficits. Speech is normal and follows commands. GCS 15 SKIN: Dry and warm Triage Information Reviewed: Yes Vital Signs On Initial Exam: Initial Vitals Pulse Pulse Ox 89 95 12/14/18 12:55 12/14/18 12:55 Vital Signs Reviewed: Yes Diagnostics - Vital Signs Vital Signs Temp Pulse Resp BP Pulse Ox 12/14/18 13:01 86 20 94 12/14/18 13:00 88 21 86/52 94 12/14/18 12:57 97.1 F 88 16 77/52 95 12/14/18 12:56 90 77/52 94 12/14/18 12:55 89 95 - Laboratory Result Diagrams: 12/14/18 14:01 12/14/18 14:01 Lab Statement: Any lab studies that have been ordered have been reviewed, and results considered in the medical decision making process. - Radiology CHEST X-RAY Radiology Interpretation Completed By: Radiologist Summary of Radiographic Findings: IMPRESSION: #. Stigmata of obstructive lung disease. No acute pulmonary or cardiac process evident. THIS REPORT WAS REVIEWED BY DR. PARKS. - CT BRAIN CT CT Interpretation Completed By: Radiologist Summary of CT Findings: BRAIN CT IMPRESSION: Chronic and degenerative changes similar to the most recent CT of the brain without CT. apparent acute intracranial abnormality. THIS REPORT WAS REVIEWED BY DR. PARKS. - EKG 1340 Cardiac Rate: NL - RATE OF 80 BPM EKG Rhythm: Sinus Rhythm Summary of EKG Findings: EKG showed sinus rhythm with rate of 86 BPM, no ST elevation. Re-Evaluation - Re-Evaluation First Eval Re-Evaluation Time: 17:42 Change: Improved Comment: After the patient was hydrated the patient feels a lot better the patient is able to ambulate with no difficulty and she reports that her dizziness have resolved. The patient is alert and oriented 3 therefore the patient will be discharged home with follow-up with PCP. I discussed all the findings and test results with the patient. Patient was instructed to return to the emergency room immediately if any of the symptoms return worsens. Plan of care was discussed with the patient and understands and agrees. All questions were answered at patient satisfaction. There were no further complaints or concerns. Lung exam before discharge: CTA B/L. Good air exchange. No wheezing or crackles heard. CVS: S1 and S2 present. No murmurs appreciated. Patient is alert and oriented x 3. Patient is hemodynamically stable. Patient will be discharged home with follow up PCP in the next 2-3 days Disposition - Course Assessment/Plan: This patient is a 73-year-old female who presents to the emergency department with chief complaint of having dizziness. The patient reports that she went to see her psychiatry and was she was in route to see him he developed dizziness, weakness and not feeling well. Therefore she called ambulance and the patient was brought into the emergency department. Patient denies any headache, denies any chest patients or palpitations. She reports occasional shortness of breath. She denies any abdominal pain nausea vomiting. Head CT impression: Chronic and degenerative changes similar to most recent CT of the pain without CT apparently acute intracranial injury. Chest x-ray impression: Stigmata of obstructive lung disease. No acute pulmonary or cardiac process evident. Blood work without any significant abnormality except for potassium level of 3.4. The patient was given potassium chloride. Also the creatinine was 1.75 for which the patient was given IV fluids and the symptoms have improved. The patient has history of renal failure. Magnesium was 1.6 and also the patient was given magnesium replacement. CRP is 974. Urinalysis is contaminated. After the patient was hydrated the patient feels a lot better the patient is able to ambulate with no difficulty and she reports that her dizziness have resolved. The patient is alert and oriented 3 therefore the patient will be discharged home with follow-up with PCP. I discussed all the findings and test results with the patient. Patient was instructed to return to the emergency room immediately if any of the symptoms return worsens. Plan of care was discussed with the patient and understands and agrees. All questions were answered at patient satisfaction. There were no further complaints or concerns. Lung exam before discharge: CTA B/L. Good air exchange. No wheezing or crackles heard. CVS: S1 and S2 present. No murmurs appreciated. Patient is alert and oriented x 3. Patient is hemodynamically stable. Patient will be discharged home with follow up PCP in the next 2-3 days - Diagnoses Provider Diagnoses: Dizziness, Chronic renal disease, Dehydration Discharge - Sign-Out/Discharge Documenting (check all that apply): Patient Departure - discharge Patient Received Moderate/Deep Sedation with Procedure: No - Discharge Plan Condition: Stable Disposition: HOME Patient Education Materials: Dizziness (ED) Referrals: Jayson Cam MD [Primary Care Provider] - 3 Days Additional Instructions: RETURN TO ED WITH ANY NEW OR WORSENING SYMPTOMS. FOLLOW UP WITH PRIMARY CARE PHYSICIAN WITHIN THREE DAYS. - Billing Disposition and Condition Condition: STABLE Disposition: Home - Attestation Statements Document Initiated by Sayda: Yes Documenting Scribe: PARISH NORTON Provider For Whom Sayda is Documenting (Include Credential): FRANKY PARKS MD Scribe Attestation: PARISH Bermeo, mandyed for FRANKY PARKS MD on 12/14/18 at 3307. Scribe Documentation Reviewed: Yes Provider Attestation: The documentation as recorded by the PARISH espitia accurately reflects the service I personally performed and the decisions made by me, FRANKY PARKS MD Status of Scribe Document: Viewed
[2018-12-14 14:12] LABS: ABS Basophils 0 10^3/ul (0-0.2); ABS Eosinophils 0.1 10^3/ul (0-0.6); ABS Lymphocytes 1.1 10^3/ul (1.0-4.8); ABS Nucleated RBC 0 10^3/ul; Eosinophil % 0.6 %; Hematocrit 39 % (33-41); Hemoglobin 12.8 g/dL (12.0-16.0); Lymphocyte % 10.6 %; Mean Corpuscular HGB Conc 33 g/dL (31-36); Mean Corpuscular Hemoglobin 29 pg (27-31); Mean Corpuscular Volume 87 fL (80-97); Nucleated Red Blood Cells % 0; Platelet Count 220 10^3/uL (150-450); Red Blood Count 4.44 10^6 /uL (3.70-4.87); Red Cell Distribution Width 15 % (10.5-15); White Blood Count 10.2 10^3/uL (3.5-10.8)
[2018-12-14 14:28] LABS: Troponin I 0.01 ng/mL (<0.04)
[2018-12-14 14:43] LABS: Albumin 3.7 g/dL (3.2-5.2); Albumin/Globulin Ratio 1.4 (1-3); BUN/Creatinine Ratio 13.7 (8-20); C Reactive Protein 9.74 mg/L (<8.01); Calcium 8.7 mg/dL (8.6-10.3); EGFR African American 34.6 (>60); EGFR Non-African American 28.6 (>60); Globulin 2.6 g/dL (2-4); Magnesium 1.6 mg/dL (1.9-2.7); Potassium 3.4 mmol/L (3.5-5.0); Total Bilirubin 0.6 mg/dL (0.2-1.0); Total Protein 6.3 g/dL (6.4-8.9)
[2018-12-14] MEDS ORDERED: Potassium Chlor TAB* 20 MEQ TAB.ER PO ONE (14:53)
[2018-12-14] MEDS ORDERED: Magnesium Sulfate 1 GM IV* 1 GM/100 ML BAG IV ONE (14:53)
[2018-12-14 15:09] LABS: TSH (Thyroid Stimulating Horm) 2.68 mcIU/mL (0.34-5.60)
[2018-12-14 16:29] LABS: Urine Appearance Clear; Urine Bacteria 1+ (Absent); Urine Bilirubin Negative (Negative); Urine Blood Negative (Negative); Urine Color Yellow; Urine Glucose Negative (Negative); Urine Ketones Negative (Negative); Urine Nitrite Negative (Negative); Urine Protein Negative (Negative); Urine Red Blood Cell 1+(3-5/hpf) (Absent); Urine Specific Gravity 1.005 (1.010-1.030); Urine Squamous Epithelial Cell Present (Absent); Urine Urobilinogen Negative (Negative); Urine White Blood Cell 2+(11-20/hpf) (Absent)
[2018-12-14] MEDS ORDERED: SULFAMETHOXAZOLE IVPB ONE (16:29)
[2018-12-14] MEDS ORDERED: TRIMETH IVPB ONE (16:29)
[2018-12-14] MEDS ORDERED: D5W IVPB ONE (16:29)
[2018-12-14] MEDS ORDERED: Ciprofloxacin TAB* 500 MG PO ONE (16:57)
[2018-12-14 17:37] LABS: Urine Benzodiazepine Screen None Detected (None Detect); Urine Opiates Screen None Detected (None Detect)
[2018-12-14 18:09] VITALS: BP 115/69
== END 2018-12-14 18:07 | disposition home or self-care (01) ==
LOC: ED 12:48
DX: I12.9 Hypertensive chronic kidney disease with stage 1 through stage 4 chronic kidney disease, or unspecified chronic kidney disease (principal); R42 Dizziness and giddiness; E86.0 Dehydration; N18.9 Chronic kidney disease, unspecified; R06.02 Shortness of breath; I10 Essential (primary) hypertension; E78.00 Pure hypercholesterolemia, unspecified; Z88.0 Allergy status to penicillin; Z88.6 Allergy status to analgesic agent; Z87.891 Personal history of nicotine dependence; Z86.73 Personal history of transient ischemic attack (TIA), and cerebral infarction without residual deficits; R47.81 Slurred speech
CPT/HCPCS: 36415; 70450; 71046; 80053; 80307; 81003; 81015; 82550; 83605; 83735; 83880; 84443; 84484; 85025; 86140; 87086; 93005; 96361; 96365; 99285; A9270-GY; J3475

== ENCOUNTER 2019-03-05 15:24 | Inpatient (IN) | payer MEDICARE ==
[2019-03-05] MEDS ORDERED: Tetan/Diph/Pertus SYR(Tdap)* 0.5 ML SYR(BOOSTRIX) use SYR IM ONE (15:53)
--- NOTE | 2019-03-05 15:53 | ED ---
Adult Trauma - HPI Summary HPI Summary: This patient is a 73 year old F brought to ED via EMS with a chief complaint of fall at 1500 today. Patient reports feeling dizzy and then falling. In the room , patient no longer feels dizzy. She thinks she hit her head and reports a MCCLURE on the left side. She does not remember exactly what happened. The fall was unwitnessed, and she was found by an aide as she lives in [place]. Patient is on Plavix and and is unsure about her tetanus. The patient rates the pain 0/ 10 in severity. Symptoms aggravated by nothing. Symptoms alleviated by nothing. Patient denies fever, CP, SOB, palpitations. Patient reports skin tear to LUE. - History of Current Complaint Chief Complaint: EDFall Stated Complaint: FALL PER EMS Time Seen by Provider: 03/05/19 15:43 Hx Obtained From: Patient, EMS Mechanism of Injury: Fall Loss of Consciousness: unsure Onset of Pain: Post Accident Onset Severity: Mild Current Severity: Mild Pain Intensity: 0 Pain Scale Used: 0-10 Numeric Location: Head, Extremities Aggravating Factor(s): Nothing Alleviating Factor(s): Nothing Associated Signs & Symptoms: Positive: Other: - Dizziness, skin tear. Negative : SOB, Chest Pain, Fever - Additional Pertinent History Primary Care Physician: RAHEEM - Allergy/Home Medications Allergies/Adverse Reactions: Allergies Allergy/AdvReac Type Severity Reaction Status Date / Time aspirin Allergy Unknown Verified 11/27/18 21:14 Reaction Details ibuprofen Allergy Unknown Verified 11/27/18 21:14 Reaction Details lamotrigine Allergy Unknown Verified 11/27/18 21:14 Reaction Details Penicillins Allergy Unknown Verified 11/27/18 21:14 Reaction Details PMH/Surg Hx/FS Hx/Imm Hx Endocrine/Hematology History: Denies: Hx Anticoagulant Therapy, Hx Diabetes, Hx Systemic Lupus Erythematosus, Hx Thyroid Disease Cardiovascular History: Reports: Hx Hypercholesterolemia, Hx Hypertension Denies: Hx Pacemaker/ICD Respiratory History: Denies: Hx Asthma, Hx Lung Cancer, Hx Pneumonia, Hx Pulmonary Embolism History: Denies: Hx Renal Disease Sensory History: Reports: Hx Contacts or Glasses - reading only, Hx Hearing Problem Denies: Hx Hearing Aid Opthamlomology History: Reports: Hx Contacts or Glasses - reading only Neurological History: Reports: Hx Dementia, Hx Transient Ischemic Attacks (TIA) - 12/29 Comment Only: Other Neuro Impairments/Disorders - Essential tremors Psychiatric History: Reports: Hx Anxiety, Hx Depression, Hx Bipolar Disorder Denies: Hx Panic Disorder - Cancer History Hx Chemotherapy: No Hx Radiation Therapy: No - Surgical History Surgery Procedure, Year, and Place: Right Hip replacement (2012);. tonsilectomy (1965) Infectious Disease History: No Infectious Disease History: Denies: History Other Infectious Disease, Traveled Outside the [place] in Last 30 Days - Family History Known Family History: Positive: Hypertension, Diabetes - Social History Alcohol Use: Occasionally Hx Substance Use: No Substance Use Type: Reports: None Hx Tobacco Use: No Smoking Status (MU): Former Smoker Review of Systems Negative: Fever Negative: Palpitations, Chest Pain Negative: Shortness Of Breath Skin: Other - Skin tear to LUE Neurological: Other - Dizziness All Other Systems Reviewed And Are Negative: Yes Physical Exam - Summary Physical Exam Summary: GENERAL: Patient is a well-developed and nourished F who is lying comfortable in the stretcher. Patient is not in any acute respiratory distress. HEAD AND FACE: Normocephalic EYES: PERRLA, EOMI x 2. EARS: Hearing grossly intact. MOUTH: Oropharynx within normal limits. NECK: Supple, trachea is midline, no adenopathy, no JVD, no carotid bruit. CHEST: Symmetric, no tenderness at palpation LUNGS: Clear to auscultation bilaterally. No wheezing or crackles. CVS: Regular rate and rhythm, S1 and S2 present, no murmurs or gallops appreciated. ABDOMEN: Soft, non-tender. Bowel sounds are normal. No abnormal abdominal pulsations. EXTREMITIES: Full ROM in all major joints, no edema, no cyanosis or clubbing. NEURO: Alert and oriented x 3. No acute neurological deficits. Speech is normal and follows commands. MUSCULOSKELETAL: tenderness to palpation of C-spine area SKIN: skin tear to the lateral aspect of the left forearm GCS: 15 Triage Information Reviewed: Yes Vital Signs On Initial Exam: Initial Vitals Temp Pulse Resp BP Pulse Ox 97.8 F 86 20 119/75 93 03/05/19 15:32 03/05/19 15:32 03/05/19 15:32 03/05/19 15:32 03/05/19 15:32 Vital Signs Reviewed: Yes Diagnostics - Vital Signs Vital Signs Temp Pulse Resp BP Pulse Ox 03/05/19 15:34 87 91 03/05/19 15:32 97.8 F 88 20 119/75 92 - Laboratory Result Diagrams: 03/06/19 05:40 03/06/19 05:40 Lab Statement: Any lab studies that have been ordered have been reviewed, and results considered in the medical decision making process. - Radiology CXR Radiology Interpretation Completed By: Radiologist Summary of Radiographic Findings: NO ACTIVE CARDIOPULMONARY DISEASE IS NOTED. Dr. Brewster has reviewed this radiology report. - CT Brain CT Interpretation Completed By: Radiologist Summary of CT Findings: Chronic ischemic White matter change. No intracranial mass or hemorrhage is noted. Dr. Brewster has reviewed this radiology report. C-spine CT Interpretation Completed By: Radiologist Summary of CT Findings: Degenerative disc disease at multiple levels. No fracture of the cervical. spine is noted. Dr. Brewster has reviewed this radiology report. - EKG 1557 Cardiac Rate: NL - 82 BPM EKG Rhythm: Sinus Rhythm Summary of EKG Findings: NSR at 82 BPM, left axis deviation. Re-Evaluation - Re-Evaluation First Eval Re-Evaluation Time: 18:05 Comment: Discussed results with patient. Patient will be admitted [place] [facility] [place]. Patient understands and agrees with this plan. Adult Trauma Course/Dx - Course Course Of Treatment: This patient is a 73 year old F brought to ED via EMS with a chief complaint of fall at 1500 today. In the ED course patient recevied fluids and Boostrix. EKG at 1557 revealed NSR at 82 BPM, left axis deviation. Brain CT revealed chronic ischemic White matter change. No intracranial mass or hemorrhage is noted. C-spine CT revealed degenerative disc disease at multiple levels. No fracture of the cervical. spine is noted. CXR revealed NO ACTIVE CARDIOPULMONARY DISEASE IS NOTED. Case discussed with hospitalist, Dr. Alarcon. I discussed results with patient. The patient agrees with this plan. Patient will be admitted to [facility] with dx of syncope and acute on chronic kidney disease. - Diagnoses Provider Diagnoses: Syncope, Chronic kidney disease, Acute on chronic renal insufficiency - Physician Notifications Discussed Care Of Patient With: Micah Alarcon Time Discussed With Above Provider: 18:55 Instructed by Provider To: Admit As Inpatient - Discussed patient case with Dr. Alacron, hospitalist, who accepted the patient for admission to [facility]. Discharge - Sign-Out/Discharge Documenting (check all that apply): Patient Departure - Admit Patient Received Moderate/Deep Sedation with Procedure: No - Discharge Plan Condition: Good Disposition: ADMITTED TO [facility] - Billing Disposition and Condition Condition: GOOD Disposition: Admitted to [facility] - Attestation Statements Document Initiated by Sayda: Yes Documenting Scribe: Harjit Forbes Provider For Whom Sayda is Documenting (Include Credential): Kenny Brewster MD Scribe Attestation: IHarjit, scribed for Kenny Brewster MD on 03/06/19 at 1051. Scribe Documentation Reviewed: Yes Provider Attestation: The documentation as recorded by the Harjit espitia accurately reflects the service I personally performed and the decisions made by me, Kenny Brewster MD Status of Scribe Document: Viewed
[2019-03-05 16:46] LABS: ABS Eosinophils 0.2 10^3/ul (0-0.6); ABS Lymphocytes 1.4 10^3/ul (1.0-4.8); ABS Monocytes 0.6 10^3/ul (0-0.8); ABS Neutrophils 6.2 10^3/ul (1.5-7.7); Eosinophil % 2.3 %; Hematocrit 41 % (35-47); Hemoglobin 13.8 g/dL (12.0-16.0); Lymphocyte % 16.8 %; Mean Corpuscular HGB Conc 34 g/dL (31-36); Mean Corpuscular Hemoglobin 29 pg (27-31); Mean Corpuscular Volume 87 fL (80-97); Mean Platelet Volume 9.1 fL (7.4-10.4); Platelet Count 230 10^3/uL (150-450); Red Blood Count 4.71 10^6 /uL (3.70-4.87); Red Cell Distribution Width 15 % (10-15); White Blood Count 8.4 10^3/uL (3.5-10.8)
[2019-03-05 16:54] LABS: Activated Partial Thrombo Time 29.3 seconds (26.0-38.0); INR 1.06 (0.82-1.09)
[2019-03-05 17:04] LABS: Albumin 4.1 g/dL (3.2-5.2); Albumin/Globulin Ratio 1.3 (1-3); BUN/Creatinine Ratio 20.2 (8-20); Calcium 10.1 mg/dL (8.6-10.3); EGFR African American 21.2 (>60); EGFR Non-African American 17.5 (>60); Globulin 3.1 g/dL (2-4); Total Bilirubin 0.6 mg/dL (0.2-1.0); Total Protein 7.2 g/dL (6.4-8.9)
[2019-03-05 17:52] LABS: Potassium 3.9 mmol/L (3.5-5.0)
[2019-03-05] MEDS ORDERED: NS 0.9% 1000 ML** 1,000 ML IV ONE (17:59)
--- NOTE | 2019-03-05 19:40 | HP ---
History of Present Illness - History of Present Illness Reason for Visit: Fall History of Present Illness: Ms. Reza is a 73-year-old female with Dementia, Bipolar disorder, lives at [facility] came in after a fall. She was trying out her new walked but felt dizzy and fell to the ground. She says she feels dizzy all the time getting up. She thinks she might have lost consciousness. She pulled a cord to alert the staff at [facility] who came and helped her out. No other chest pain or breathing difficulty. No other numbness, paralysis, tingling or vision changes. She has been having speech difficulty where she has difficulty word finding for the last few years. PAST MEDICAL HISTORY: Dementia. TIA. Hyperlipidemia. Hypertension. Depression. Bipolar disorder. Depression. Anxiety. Essential tremors. PAST SURGICAL HISTORY: Right total hip arthroplasty-2012. Tonsillectomy-1995. FAMILY HISTORY: Both her parents were diabetics and father did have a stroke. SOCIAL HISTORY: She is a former smoker. She rarely drinks alcohol. Surrogate decision maker is her brother and sister. Allergies Allergy/AdvReac Type Severity Reaction Status Date / Time aspirin Allergy Unknown Verified 11/27/18 21:14 Reaction Details ibuprofen Allergy Unknown Verified 11/27/18 21:14 Reaction Details lamotrigine Allergy Unknown Verified 11/27/18 21:14 Reaction Details Penicillins Allergy Unknown Verified 11/27/18 21:14 Reaction Details Home Medications Medication Instructions Recorded Confirmed Type amLODIPine TAB* [Norvasc 5 mg TAB*] 10 mg PO QAM 08/14/15 03/05/19 History Clopidogrel TAB* [Plavix TAB*] 75 mg PO DAILY #30 tab 08/17/15 03/05/19 Rx Bupropion XL* [Wellbutrin XL *] 150 mg PO DAILY tab 01/13/17 03/05/19 Rx Acetylcysteine [Nac] 600 mg PO DAILY 12/14/18 03/05/19 History Atorvastatin* [Lipitor*] 20 mg PO DAILY 12/14/18 03/05/19 History Cholecalciferol TAB* [Vitamin D 400 unit PO DAILY 12/14/18 03/05/19 History TAB*] Quetiapine Fumarate [Seroquel 400 400 mg PO BEDTIME 12/14/18 03/05/19 History MG] Zinc Gluconate [Zinc] 50 mg PO DAILY 12/14/18 03/05/19 History busPIRone TAB* [Buspar TAB *] 22.5 mg PO BID 12/14/18 03/05/19 History Review of Systems - Measurements Intake and Output: Intake and Output Last 24 Hours 03/03/19 03/04/19 03/05/19 03/06/19 06:59 06:59 06:59 06:59 Weight 205 lb - Review of Systems Constitutional Symptoms: Positive: Weakness Negative: Fever Dermatology: Negative: Rash Eyes: Negative: Change in Vision Pulmonary: Negative: Shortness of Breath Cardiology: Negative: Chest Pain, Shortness of Breath, Palpitations, Swelling of Ankles Gastroenterology: Negative: Abdominal Pain, Nausea, Vomiting Objective Vital Signs 03/05/19 03/05/19 03/05/19 15:32 15:34 16:00 Temperature 97.8 F Pulse Rate 88 87 85 Respiratory 20 23 Rate Blood Pressure 119/75 (mmHg) O2 Sat by Pulse 92 91 93 Oximetry 03/05/19 03/05/19 03/05/19 16:02 16:32 17:01 Temperature Pulse Rate 83 84 Respiratory 22 22 23 Rate Blood Pressure 138/64 123/60 (mmHg) O2 Sat by Pulse 92 90 Oximetry 03/05/19 03/05/19 03/05/19 17:03 17:34 18:01 Temperature Pulse Rate Respiratory 25 22 15 Rate Blood Pressure 136/63 126/57 (mmHg) O2 Sat by Pulse Oximetry 03/05/19 03/05/19 03/05/19 18:03 18:33 19:01 Temperature Pulse Rate Respiratory 15 19 16 Rate Blood Pressure 119/66 122/78 (mmHg) O2 Sat by Pulse Oximetry 03/05/19 03/05/19 03/05/19 19:03 20:00 20:08 Temperature Pulse Rate Respiratory 21 27 20 Rate Blood Pressure 113/70 123/66 (mmHg) O2 Sat by Pulse Oximetry 03/05/19 03/05/19 03/05/19 20:10 20:11 20:15 Temperature Pulse Rate 93 Respiratory 30 18 Rate Blood Pressure 107/67 89/52 123/66 (mmHg) O2 Sat by Pulse Oximetry 03/05/19 20:16 Temperature Pulse Rate 93 Respiratory Rate Blood Pressure 89/52 (mmHg) O2 Sat by Pulse Oximetry Oxygen Devices in Use Now: None Appearance: Some lip smaking noted Eyes: No Scleral Icterus, PERRLA Ears/Nose/Mouth/Throat: NL Teeth, Lips, Gums, Clear Oropharnyx, Mucous Membranes Moist Neck: NL Appearance and Movements; NL JVP Respiratory: Clear to Auscultation Cardiovascular: NL Sounds; No Murmurs; No JVD, RRR, No Edema Abdominal: NL Sounds; No Tenderness; No Distention Extremities: No Edema Skin: No Rash or Ulcers Neurological: Alert and Oriented x 3, NL Sensation, NL Muscle Strength and Tone Result Diagrams: 03/05/19 16:39 03/05/19 16:39 Diagnostic Imaging: CHEST AP OR PORT IMPRESSION: NO ACTIVE CARDIOPULMONARY DISEASE IS NOTED. CT BRAIN WO IMPRESSION: Chronic ischemic White matter change. No intracranial mass or hemorrhage is noted. CT SPINE CERVICAL W/O IMPRESSION: Degenerative disc disease at multiple levels. No fracture of the cervical spine is noted. EKG Data: Sinus rhythm at 82bpm. Compared to old EKG from November 2018 unchanged. Assess/Plan/Problems-Billing Assessment: 73yoF with bipolar, HTN, - Patient Problems (1) Syncope Current Visit: Yes Status: Acute Code(s): R55 - SYNCOPE AND COLLAPSE SNOMED Code(s): 896551124 Comment: Likely due to dehydration and orthostatic hypotension Hydrate via IV. ECHO. (2) Orthostatic hypotension Current Visit: Yes Status: Acute Code(s): I95.1 - ORTHOSTATIC HYPOTENSION SNOMED Code(s): 72091043 Comment: Repeat vitals qshift to see for improvement after hydration. (3) Acute kidney injury Current Visit: Yes Status: Acute Code(s): N17.9 - ACUTE KIDNEY FAILURE, UNSPECIFIED SNOMED Code(s): 90407660 Comment: Start hydration. Awaiting Urinalysis and Urine Lytes. Repeat BMP in AM. (4) HTN (hypertension) Current Visit: No Status: Chronic Code(s): I10 - ESSENTIAL (PRIMARY) HYPERTENSION SNOMED Code(s): 45904924 Comment: Hold Amlodipine for now and monitor BP. If BP worsens consider restarting. (5) Bipolar 1 disorder Current Visit: No Status: Chronic Code(s): F31.9 - BIPOLAR DISORDER, UNSPECIFIED SNOMED Code(s): 034862518 Comment: Continue home meds. (6) HLD (hyperlipidemia) Current Visit: No Status: Chronic Code(s): E78.5 - HYPERLIPIDEMIA, UNSPECIFIED SNOMED Code(s): 84142934 Comment: Continue lipitor. (7) TIA/CVA Current Visit: No Status: Acute Comment: On Plavix/Lipitor. (8) DVT prophylaxis Current Visit: No Status: Acute Code(s): QLT4541 - SNOMED Code(s): 210402978 Comment: SCD
[2019-03-05] MEDS: QUEtiapine TAB* 100 MG PO SCH (22:31)
[2019-03-05] MEDS: busPIRone TAB* 15 MG PO SCH (22:32)
[2019-03-05] MEDS: NS 0.9% 1000 ML** 1,000 ML IV SCH (22:57)
[2019-03-05 23:33] LABS: Urine Appearance Clear; Urine Bilirubin Negative (Negative); Urine Blood Negative (Negative); Urine Color Straw; Urine Glucose Negative (Negative); Urine Ketones Negative (Negative); Urine Nitrite Negative (Negative); Urine Protein Negative (Negative); Urine Urobilinogen Negative (Negative)
[2019-03-05 23:35] LABS: Urine Potassium Concentration 23.4 mmol/L
[2019-03-06 06:48] LABS: ABS Eosinophils 0.3 10^3/ul (0-0.6); ABS Lymphocytes 2.3 10^3/ul (1.0-4.8); ABS Monocytes 0.6 10^3/ul (0-0.8); ABS Neutrophils 4.2 10^3/ul (1.5-7.7); Eosinophil % 3.9 %; Hematocrit 38 % (35-47); Lymphocyte % 30.3 %; Mean Corpuscular HGB Conc 35 g/dL (31-36); Mean Corpuscular Hemoglobin 30 pg (27-31); Mean Corpuscular Volume 87 fL (80-97); Mean Platelet Volume 9.3 fL (7.4-10.4); Nucleated Red Blood Cells % 0.1; Platelet Count 203 10^3/uL (150-450); Red Blood Count 4.34 10^6 /uL (3.70-4.87); Red Cell Distribution Width 15 % (10-15); White Blood Count 7.5 10^3/uL (3.5-10.8)
[2019-03-06 07:00] LABS: BUN/Creatinine Ratio 23.7 (8-20); Calcium 9.3 mg/dL (8.6-10.3); EGFR African American 31.4 (>60); Potassium 3.5 mmol/L (3.5-5.0)
[2019-03-06] MEDS: busPIRone TAB* 15 MG PO SCH ×2 (08:55→21:46)
[2019-03-06] MEDS: Clopidogrel TAB* 75 MG PO SCH (08:55)
[2019-03-06] MEDS: Cholecalciferol TAB* 400 UNIT PO SCH (08:55)
[2019-03-06] MEDS: Atorvastatin* 20 MG TAB PO SCH (08:56)
[2019-03-06] MEDS: Acetylcysteine CAP (RENAL)* 600 MG PO SCH (08:56)
[2019-03-06] MEDS: BuPROPion XL* 150 MG TAB.XL PO SCH (08:56)
--- NOTE | 2019-03-06 17:21 | PN ---
Subjective Date of Service: 03/06/19 Interval History: c/o dizziness intermittently. Denies chest pain or shortness of breath. Denies abd pain n/v/d. denies fever or chills Orthostatic vital signs reviewed - remains orthostatic Family History: Unchanged from Admission Social History: Unchanged from Admission Past Medical History: Unchanged from Admission Objective Active Medications: Acetylcysteine (Acetylcysteine Cap (Renal)*) 600 mg PO DAILY [facility] Last Admin: 03/06/19 08:56 Dose: 600 mg Atorvastatin Calcium (Lipitor*) 20 mg PO DAILY [facility] Last Admin: 03/06/19 08:56 Dose: 20 mg Bupropion HCl (Wellbutrin Xl *) 150 mg PO DAILY [facility] Last Admin: 03/06/19 08:56 Dose: 150 mg Buspirone HCl (Buspar Tab *) 22.5 mg PO BID [facility] Last Admin: 03/06/19 08:55 Dose: 22.5 mg Cholecalciferol (Vitamin D Tab*) 400 unit PO DAILY [facility] Last Admin: 03/06/19 08:55 Dose: 400 unit Clopidogrel Bisulfate (Plavix Tab*) 75 mg PO DAILY [facility] Last Admin: 03/06/19 08:55 Dose: 75 mg Sodium Chloride (Ns 0.9% 1000 Ml) 1,000 mls @ 100 mls/hr IV PER RATE [facility] Last Admin: 03/05/19 22:57 Dose: 100 mls/hr Quetiapine Fumarate (Seroquel Tab*) 400 mg PO BEDTIME [facility] Last Admin: 03/05/19 22:31 Dose: 400 mg Oxygen Devices in Use Now: None Appearance: alert, no acute distress Eyes: No Scleral Icterus Ears/Nose/Mouth/Throat: Clear Oropharnyx, Mucous Membranes Moist Neck: NL Appearance and Movements; NL JVP, Trachea Midline Respiratory: Symmetrical Chest Expansion and Respiratory Effort, Clear to Auscultation Cardiovascular: NL Sounds; No Murmurs; No JVD, No Edema Abdominal: NL Sounds; No Tenderness; No Distention Extremities: No Edema, No Clubbing, Cyanosis Skin: No Rash or Ulcers, - - dressing intact to left forearm arm skin tear, Neurological: Alert and Oriented x 3 Nutrition: Taking PO's Result Diagrams: 03/06/19 05:40 03/06/19 05:40 Diagnostic Imaging: CHEST AP OR PORT IMPRESSION: NO ACTIVE CARDIOPULMONARY DISEASE IS NOTED. CT BRAIN WO IMPRESSION: Chronic ischemic White matter change. No intracranial mass or hemorrhage is noted. CT SPINE CERVICAL W/O IMPRESSION: Degenerative disc disease at multiple levels. No fracture of the cervical spine is noted. EKG Data: Sinus rhythm at 82bpm. Compared to old EKG from November 2018 unchanged. Assess/Plan/Problems-Billing Assessment: 73yoF with bipolar, HTN, - Patient Problems (1) Syncope Current Visit: Yes Status: Acute Code(s): R55 - SYNCOPE AND COLLAPSE SNOMED Code(s): 881190302 Comment: Likely due to dehydration and orthostatic hypotension - continue IVF - remains orthostatic ECHO.- pending (2) Orthostatic hypotension Current Visit: Yes Status: Acute Code(s): I95.1 - ORTHOSTATIC HYPOTENSION SNOMED Code(s): 20631354 Comment: - remains orthostatic , c/o dizziness - will continue IVF Repeat orthostatics (3) Acute kidney injury Current Visit: Yes Status: Acute Code(s): N17.9 - ACUTE KIDNEY FAILURE, UNSPECIFIED SNOMED Code(s): 92930113 Comment: continue IVF Urinalysis -WNL Repeat BMP in AM. (4) Bipolar 1 disorder Current Visit: No Status: Chronic Code(s): F31.9 - BIPOLAR DISORDER, UNSPECIFIED SNOMED Code(s): 878479352 Comment: stable Continue home meds. (5) DVT prophylaxis Current Visit: Yes Status: Acute Code(s): Z29.9 - ENCOUNTER FOR PROPHYLACTIC MEASURES, UNSPECIFIED SNOMED Code(s): 969078865 Comment: scd's (6) Full code status Current Visit: No Status: Acute Code(s): Z78.9 - OTHER SPECIFIED HEALTH STATUS SNOMED Code(s): 623483386
[2019-03-06] MEDS: QUEtiapine TAB* 100 MG PO SCH (21:46)
[2019-03-06] MEDS: NS 0.9% 1000 ML** 1,000 ML IV SCH (23:25)
[2019-03-07 06:23] LABS: BUN/Creatinine Ratio 26.2 (8-20); Calcium 9.3 mg/dL (8.6-10.3); EGFR African American 48.7 (>60); EGFR Non-African American 40.3 (>60); Magnesium 1.6 mg/dL (1.9-2.7); Potassium 3.8 mmol/L (3.5-5.0)
[2019-03-07] MEDS: Cholecalciferol TAB* 400 UNIT PO SCH (08:41)
[2019-03-07] MEDS: Acetylcysteine CAP (RENAL)* 600 MG PO SCH (08:41)
[2019-03-07] MEDS: BuPROPion XL* 150 MG TAB.XL PO SCH (08:42)
[2019-03-07] MEDS: Clopidogrel TAB* 75 MG PO SCH (08:42)
[2019-03-07] MEDS: Atorvastatin* 20 MG TAB PO SCH (08:42)
[2019-03-07] MEDS: busPIRone TAB* 15 MG PO SCH (08:42)
--- NOTE | 2019-03-07 12:30 | ECHO ---
*[facility]* [place] [address] Fax #: [phone] Transthoracic Echocardiogram Patient: Candy Reza : 1945 Study Date: 03/07/2019 Age: 73 Gender: F HR: 74 bpm Height: 67 in /170.2 cm BSA: 2.04 m^2 Weight: 204.6 lb /93 kg BMI: 32.1 kg/m^2 *Coding Spec: * [facility] *Referring Physician: * Micah Alarcon *Reading Physician: * Tito Martinez MD Indications: Syncope. History: Transient ischemic attack. Risk factors: Former tobacco use. Hypertension. Hyperlipidemia. Conclusions Summary: 1. Left ventricle: Systolic function is normal. The estimated ejection fraction is 60-65%. Wall motion is normal; there are no regional wall motion abnormalities. 2. Mitral valve: There is mild regurgitation. 3. Aortic valve: There is no evidence of stenosis. 4. Tricuspid valve: There is trace to mild regurgitation. 5. Pericardium, extracardiac: There is no significant pericardial effusion. 6. Compared to study of 08/15/15, there is no change. Study data: Transthoracic echocardiogram. Procedure: Transthoracic echocardiography was performed. Image quality was fair. The study was technically limited due to poor acoustic window availability. Complete 2D, spectral Doppler, and color flow Doppler. Location: Echo laboratory. Patient status: Inpatient. Patient room number: 448-2. Rhythm: Normal sinus rhythm. Findings Left ventricle: The cavity size is normal. There is mild concentric hypertrophy. Systolic function is normal. The estimated ejection fraction is 60-65%. Wall motion is normal; there are no regional wall motion abnormalities. Doppler parameters are consistent with abnormal left ventricular relaxation (grade 1 diastolic dysfunction). Right ventricle: The cavity size is normal. Wall thickness is moderately increased. Systolic function is normal. Left atrium: The atrium is normal in size. Right atrium: The atrium is normal in size. Mitral valve: The leaflets are mildly thickened. There is no evidence of stenosis. There is mild regurgitation. Aortic valve: The valve is trileaflet. The leaflets are mildly thickened. There is no evidence of stenosis. There is trace regurgitation. Tricuspid valve: The leaflets are normal thickness. There is no evidence of stenosis. There is trace to mild regurgitation. Pulmonic valve: The leaflets are normal thickness. There is no evidence of stenosis. There is trace regurgitation. Aorta: Aortic root: The aortic root is appears normal. Ascending aorta: The ascending aorta is appears normal. Aortic arch: The aortic arch is appears normal. Pericardium: A prominent pericardial fat pad is present. There is no significant pericardial effusion. Pulmonary arteries: The main pulmonary artery is normal-sized. Systolic pressure can not be accurately estimated. Systemic veins: Inferior vena cava: The respirophasic diameter changes are in the normal range (>= 50%). Measurements Left ventricle Value Ref Aortic valve Value Ref PRASAD, LAX 4.5 cm 3.8 - 5.2 Nancy diam, ED 1.8 cm ----- ESD, LAX 2.9 cm 2.2 - 3.5 Peak v, S 1.75 m/sec ----- FS, LAX 36 % 27 - 45 VTI, S 36.8 cm ----- PW, ED, LAX (H) 1.1 cm 0.6 - 0.9 Mean grad, S 6.0 mm Hg ----- FS 36 % 27 - 45 Peak grad, S 12.0 mm Hg ----- PW, ED (H) 1.1 cm 0.6 - 0.9 LVOT/AV, VTI ratio 0.84 ----- E', lat nancy, TDI 10.4 cm/sec >=10.0 E/e', lat nancy, 7 Mitral valve Value Ref TDI Peak E 0.74 m/sec ----- E', med nancy, TDI 7.5 cm/sec >=7.0 Peak A 0.95 m/sec --- -- E/e', med nancy, 10 Decel time 275 ms ----- TDI Peak grad, D 2.2 mm Hg ----- E', avg, TDI 9.0 cm/sec Peak E/A ratio 0.8 ----- E/e', avg, TDI 8 <=14 Pulmonic valve Value Ref LVOT Value Ref Peak v, S 1.03 m/sec ----- Peak nayla, S 1.23 m/sec Peak grad, S 4.0 mm Hg ----- VTI, S 31.0 cm Peak grad, S 6 mm Hg Tricuspid valve Value Ref Mean grad, S 3 mm Hg TR peak v 2 m/sec <=2.8 Peak RV-RA grad, S 16 mm Hg ----- Ventricular septum Value Ref IVS, ED (H) 1.1 cm 0.6 - 0.9 Aortic root Value Ref Root diam 2.9 cm <4.2 Right ventricle Value Ref AW thickness, ED (H) 1.2 cm 0.1 - 0.5 Ascending aorta Value Ref PRASAD, LAX 2.9 cm AAo AP diam, S 3.0 cm ----- PRASAD minor ax, A4C (H) 3.6 cm 1.9 - 3.5 mid Aortic arch Value Ref Pressure, S 19 mm Hg Arch diam 2.5 cm ----- Left atrium Value Ref Decending aorta Value Ref AP dim, ES 3.70 cm 2.70 - Aung peak nayla 0.82 m/sec ----- 3.80 ML dim, A4C 3.2 cm Pulmonary artery Value Ref SI dim, A4C 5.1 cm Pressure, S 15.0 mm Hg ----- Vol/bsa, ES, 1-p 15 ml/m^2 11 - 40 A4C Inferior vena cava Value Ref Vol/bsa, ES, A/L 17 ml/m^2 16 - 34 Diam 2.1 cm ----- Right atrium Value Ref SI dim, ES 4.5 cm 3.4 - 5.3 ML dim, ES, A4C 3.7 cm 2.6 - 4.4 SI dim, ES, A4C 4.5 cm 3.4 - 5.3 SI dim/bsa, ES, 2.2 cm/m^2 1.9 - 3.1 A4C Estimated RAP 3 mm Hg Legend: (L) and (H) prisca values outside specified reference range. Prepared and electronically signed by Tito Martinez MD 03/07/2019 12:30
[2019-03-07] MEDS ORDERED: Magnesium Sulfate 2 GM IV* 2 GM/50 ML BAG IVPB ONE (15:22)
[2019-03-07 15:44] VITALS: BP 138/70
[2019-03-07] MEDS ORDERED: busPIRone TAB* 5 MG PO SCH (21:00)
[2019-03-07] MEDS ORDERED: busPIRone TAB* 10 MG PO SCH (21:00)
[2019-03-08] MEDS ORDERED: Magnesium Oxide TAB* 400 MG PO SCH (09:00)
--- NOTE | 2019-03-09 03:44 | DS ---
DISCHARGE SUMMARY: DATE OF ADMISSION: 03/05/19 DATE OF DISCHARGE: 03/07/19 PROVIDER: Cullen Quevedo NP PRIMARY CARE PROVIDER: Dr. Cam. ATTENDING PHYSICIAN WHILE IN THE HOSPITAL: Dr. Gokul Gary * (dictated by Cullen Quevedo NP). PRIMARY DIAGNOSES: 1. Orthostatic hypotension. 2. Syncope. 3. Acute kidney injury. SECONDARY DIAGNOSES: 1. Dementia. 2. Transient ischemic attack. 3. Hyperlipidemia. 4. Hypertension. 5. Depression. 6. Bipolar. 7. Anxiety. 8. Essential tremors. DISCHARGE MEDICATIONS: New home medications: 1. Magnesium oxide 400 mg p.o. daily. Continued home medications: 1. Buspirone 22.5. 2. Zinc 50 mg p.o. daily. 3. Seroquel 400 mg at bedtime. 4. Clopidogrel 75 mg p.o. daily. 5. Vitamin D 400 units p.o. daily. 6. Wellbutrin 150 mg p.o. daily. 7. Atorvastatin 20 mg p.o. daily. 8. Acetylcysteine 600 mg p.o. daily. HISTORY OF PRESENT ILLNESS AND HOSPITAL COURSE: Ms. Reza is a 73-year-old female with a past medical history significant for dementia, TIA, hyperlipidemia , hypertension, depression, bipolar disorder and anxiety as such tremors who currently resides at the [facility], who presented to the emergency room after a fall. The patient reports that she was trying out a new walker, she felt dizzy and she fell to the ground. She states she pulled the cord to alert the staff at [facility]. They came to help her. She had no chest pain, difficulty breathing or any other. She denied any numbness, paralysis, tingling or visual changes. She does report difficulty with word finding for several years. Due to her syncopal episode and orthostatic hypotension, we were asked to see and evaluate the patient for admission. During the hospitalization, the patient did receive IV fluids and her blood pressure medications were held. Her Norvasc was held, which resolved her orthostatic hypotension. At this time, Ms. Reza is stable for discharge back to the [facility]. REVIEW OF SYSTEMS: The patient denies any fever, chills, nausea or vomiting. She denies any dizziness. She denies any weakness. She denies any chest pain or shortness of breath. No abdominal pain, nausea, vomiting or diarrhea. She denies any dysuria or urinary frequency. PHYSICAL EXAMINATION: General: At this time, Ms. Reza is alert and resting in her bed. She is in no acute distress. HEENT: Head is atraumatic, normocephalic. Eyes: EOMs are intact. Sclerae anicteric and not pale. Oral mucosa appeared to be moist. Neck is supple. Lungs are clear to auscultation bilaterally. No wheezes, rales or rhonchi. Cardiac: S1, S2, regular rate and rhythm. No murmurs, rubs or gallops. Abdomen: Soft and nontender. Bowel sounds are present x4. Extremities: She is able to move all 4 extremities. There is no clubbing or cyanosis. At this time, Ms. Reza is stable for discharge to [facility]. Vital signs are as follows: Blood pressure 138/70, heart rate is 79, respirations 15, O2 saturation 95%, temperature is 97.5. STUDIES COMPLETED WHILE IN THE HOSPITAL: She had a CT of the brain, radiologist impression: Chronic ischemic white matter changes. No intracranial mass or hemorrhages were noted. She had a CT of the C-spine. Degenerative disk disease at multiple levels. No fracture of the cervical spine was noted. She had a chest x- ray, radiologist impression: No active cardiopulmonary disease. She had an electrocardiogram, which showed sinus rhythm at a rate of 82. DISCHARGE PLAN: Ms. Reza will be discharged to [facility]. 1. Syncope. I suspect her syncope is related to orthostatic hypotension and dehydration. The patient did receive IV fluids during this hospitalization. Her orthostatic hypotension did resolve. Her amlodipine was held. I did discontinue this medication at discharge. She should follow up with her primary care provider in 4 to 7 days for further management of her orthostatic hypotension. 2. She did have hypomagnesia. She was given magnesium during this hospitalization and placed on magnesium oxide 400 mg p.o. daily. She should have a BMP and mag checked in 1 week. 3. Acute kidney injury. The patient did have acute kidney injury with BUN was 54 and creatinine was 2.67. On the day of discharge, her BUN was down to 34 and creatinine was down to 1.30. I suspect her elevation in BUN and creatinine was related to dehydration. The patient's BUN and creatinine did improve with hydration. I would recommend a BMP in a week to continue to monitor her renal function. 4. Depression. The patient should continue on her medications as previously prescribed at home. 5. History of transient ischemic attack. The patient should continue on Plavix 75 mg p.o. daily. 6. Hyperlipidemia. The patient should continue on atorvastatin 20 mg p.o. daily. 7. Followup. The patient should follow up with her primary care provider in 4 to 7 days. The patient was instructed to return to the emergency room for any further syncopal episodes, chest pain, shortness of breath, dizziness, weakness on one side or any other concerning symptoms. I have discuss with my attending, Dr. Gokul Gary, he is in agreement with my plan. CULLEN QUEVEDO NP [id number]/[facility] #: [id number] MARY
== END 2019-03-07 18:37 | disposition home health service (06) | DRG 312 ==
LOC: ED 15:24 → MEDTELE 20:25
PROVIDERS: ADMIT Internal Medicine; ATTEND Internal Medicine
DX: I95.1 Orthostatic hypotension (principal); N17.9 Acute kidney failure, unspecified; F03.90 Unspecified dementia, unspecified severity, without behavioral disturbance, psychotic disturbance, mood disturbance, and anxiety; E78.5 Hyperlipidemia, unspecified; I10 Essential (primary) hypertension; F31.9 Bipolar disorder, unspecified; F32.9 Major depressive disorder, single episode, unspecified; F41.9 Anxiety disorder, unspecified; G25.0 Essential tremor; W18.30XA Fall on same level, unspecified, initial encounter; E86.0 Dehydration; E83.42 Hypomagnesemia; Z96.641 Presence of right artificial hip joint; Y92.099 Unspecified place in other non-institutional residence as the place of occurrence of the external cause; Z86.73 Personal history of transient ischemic attack (TIA), and cerebral infarction without residual deficits; Z83.3 Family history of diabetes mellitus; Z82.3 Family history of stroke; Z87.891 Personal history of nicotine dependence; Z88.6 Allergy status to analgesic agent; Z88.0 Allergy status to penicillin; Z88.8 Allergy status to other drugs, medicaments and biological substances; Z79.02 Long term (current) use of antithrombotics/antiplatelets; Z79.899 Other long term (current) drug therapy
CPT/HCPCS: 36415; 70450; 71045; 72125; 80048; 80053; 81003; 82436; 83605; 83735; 84133; 84300; 84484; 85025; 85610; 85730; 90715; 93005; 93306; 99285; A9270-GY; G8978-GP-CJ; G8979-GP-CI; J3475

== ENCOUNTER 2019-03-28 13:06 | Observation (INO) | payer MEDICARE ==
[2019-03-28] MEDS ORDERED: NS 0.9% 1000 ML** 1,000 ML IV ONE (14:15)
--- NOTE | 2019-03-28 14:30 | ED ---
Altered Mental Status - HPI Summary HPI Summary: Pt is a 73 y/o F presenting to the ED with a chief complaint of confusion. The pts daughter states that every so often, when she takes her medications incorrectly or misses a dose, she becomes confused and disoriented. Today, she tried to go to a doctors appointment that is actually tomorrow, and became lost on the way there. She denies hx of DM or CVA. She is on a blood thinner, though she's unsure which one. - History Of Current Complaint Chief Complaint: EDNeurologicalDeficit Stated Complaint: CONFUSION Time Seen by Provider: 03/28/19 14:03 Hx Obtained From: Patient Onset/Duration: Resolved, Suddenly Timing: Intermittent, Lasting Hours Severity Initially: Moderate Severity Currently: None Character: Confusion Aggravating Factor(s): Unknown Alleviating Factor(s): Nothing - Allergies/Home Medications Allergies/Adverse Reactions: Allergies Allergy/AdvReac Type Severity Reaction Status Date / Time aspirin Allergy Unknown Verified 03/28/19 13:48 Reaction Details ibuprofen Allergy Unknown Verified 03/28/19 13:48 Reaction Details lamotrigine Allergy Unknown Verified 03/28/19 13:48 Reaction Details Penicillins Allergy Unknown Verified 03/28/19 13:48 Reaction Details Home Medications: Home Medications Benzonatate CAP* [Tessalon 100 MG CAP*] 200 mg PO TID PRN 03/28/19 [History Confirmed 03/28/19] FLUoxetine CAP* [PROzac CAP*] 20 mg PO DAILY 03/28/19 [History Confirmed ] Magnesium Oxide TAB* [MagOx 400 TAB*] 400 mg PO BID 03/28/19 [History Confirmed 03/28/19] Leeper-3 Fatty Acids (Nf) [Fish Oil (NF)] 1,000 mg PO DAILY 03/28/19 [History Confirmed 03/28/19] Quetiapine Fumarate [Seroquel 200 MG] 400 mg PO BEDTIME 03/28/19 [History Confirmed 03/28/19] Zinc Gluconate [Zinc] 50 mg PO DAILY 03/28/19 [History Confirmed 03/28/19] PMH/Surg Hx/FS Hx/Imm Hx Previously Healthy: Yes Endocrine/Hematology History: Denies: Hx Anticoagulant Therapy, Hx Diabetes, Hx Systemic Lupus Erythematosus, Hx Thyroid Disease Cardiovascular History: Reports: Hx Hypercholesterolemia, Hx Hypertension Denies: Hx Pacemaker/ICD Respiratory History: Denies: Hx Asthma, Hx Lung Cancer, Hx Pneumonia, Hx Pulmonary Embolism History: Denies: Hx Renal Disease Musculoskeletal History: Reports: Hx Back Problems Sensory History: Reports: Hx Contacts or Glasses - reading only, Hx Hearing Problem Denies: Hx Hearing Aid Opthamlomology History: Reports: Hx Contacts or Glasses - reading only Neurological History: Reports: Hx Dementia, Hx Transient Ischemic Attacks (TIA) - 12/29 Comment Only: Other Neuro Impairments/Disorders - Essential tremors Psychiatric History: Reports: Hx Anxiety, Hx Depression, Hx Bipolar Disorder Denies: Hx Panic Disorder - Cancer History Hx Chemotherapy: No Hx Radiation Therapy: No - Surgical History Surgery Procedure, Year, and Place: Right Hip replacement (2012);. tonsilectomy (1965) Infectious Disease History: No Infectious Disease History: Denies: History Other Infectious Disease, Traveled Outside the [place] in Last 30 Days - Family History Known Family History: Positive: Hypertension, Diabetes - Social History Alcohol Use: Occasionally Hx Substance Use: No Substance Use Type: Reports: None Hx Tobacco Use: No Smoking Status (MU): Former Smoker Review of Systems Positive: Other - disorientation Neurological: Other - confusion All Other Systems Reviewed And Are Negative: Yes Physical Exam - Summary Physical Exam Summary: GENERAL: Patient is a well-developed and nourished F who is lying comfortable in the stretcher. Patient is not in any acute respiratory distress. HEAD AND FACE: Normocephalic EYES: PERRLA, EOMI x 2. EARS: Hearing grossly intact. MOUTH: Oropharynx within normal limits. NECK: Supple, trachea is midline, no adenopathy, no JVD, no carotid bruit. CHEST: Symmetric, no tenderness at palpation LUNGS: Clear to auscultation bilaterally. No wheezing or crackles. CVS: Regular rate and rhythm, S1 and S2 present, no murmurs or gallops appreciated. ABDOMEN: Soft, non-tender. Bowel sounds are normal. No abnormal abdominal pulsations. EXTREMITIES: Full ROM in all major joints, no edema, no cyanosis or clubbing. NEURO: Alert and oriented to person, place, but not date. No acute neurological deficits. Speech is normal and follows commands. SKIN: Dry and warm Triage Information Reviewed: Yes Vital Signs On Initial Exam: Initial Vitals Temp Pulse Resp BP Pulse Ox 98.6 F 79 19 157/86 94 03/28/19 13:15 03/28/19 13:15 03/28/19 13:15 03/28/19 13:15 03/28/19 13:15 Vital Signs Reviewed: Yes - [place] Coma Scale Best Eye Response: 4 - Spontaneous Best Motor Response: 6 - Obeys Commands Best Verbal Response: 4 - Confused Coma Scale Total: 14 Diagnostics - Vital Signs Vital Signs Temp Pulse Resp BP Pulse Ox 03/28/19 13:31 81 22 151/83 94 03/28/19 13:26 82 96 03/28/19 13:15 98.6 F 79 19 157/86 94 - Laboratory Result Diagrams: 03/28/19 14:36 03/28/19 14:36 Lab Statement: Any lab studies that have been ordered have been reviewed, and results considered in the medical decision making process. - Radiology CXR Radiology Interpretation Completed By: Radiologist Summary of Radiographic Findings: No active cardiopulmonary disease is noted. ED physician has reviewed this report. - CT Brain CT CT Interpretation Completed By: Radiologist Summary of CT Findings: NO ACUTE INTRACRANIAL PATHOLOGY. CHRONIC SMALL VESSEL ISCHEMIC CHANGE. ED physician has reviewed this report. - EKG 1409 Cardiac Rate: NL - 83bpm EKG Rhythm: Sinus Rhythm ST Segment: Non-Specific Ectopy: None Summary of EKG Findings: EKG at 1409 shows NSR at 83bpm with LAD and minimal ST depression in the lateral leads. Altered Mental Statu Course/Dx - Course Course Of Treatment: Pt is a 73 y/o F presenting to the ED with a chief complaint of confusion. Today, she tried to go to a doctors appointment that is actually tomorrow, and became lost on the way there. She denies hx of DM or CVA. The pt's physical exam is normal aside from being alert & oriented to person and place, but not time. Brain CT shows: NO ACUTE INTRACRANIAL PATHOLOGY. CHRONIC SMALL VESSEL ISCHEMIC CHANGE. CXR shows: No active cardiopulmonary disease is noted. EKG at 1409 shows NSR at 83bpm with LAD and minimal ST depression in the lateral leads. As of 1599, the pt will be admitted to Dr. Polanco at [facility] with dx of dehydration and gait instability. - Diagnoses Provider Diagnoses: Dehydration, Gait instability - Provider Notifications Discussed Care Of Patient With: Mayur Kardon Time Discussed With Above Provider: 16:00 Instructed by Provider To: Admit As Inpatient Discharge - Sign-Out/Discharge Documenting (check all that apply): Patient Departure - Discharge Plan Condition: Stable Disposition: ADMITTED TO [facility] - Billing Disposition and Condition Condition: STABLE Disposition: Admitted to [facility] - Attestation Statements Document Initiated by Scribe: Yes Documenting Scribe: Dai Aldana Provider For Whom Juiceibzita is Documenting (Include Credential): Kenny Brewster MD. Scribe Attestation: Dai Bermeo, mandyed for Kenny Brewster MD. on 03/28/19 at 1809. Scribe Documentation Reviewed: Yes Provider Attestation: The documentation as recorded by the Dai espitia accurately reflects the service I personally performed and the decisions made by Cristi high MD. Status of Scribe Document: Viewed
[2019-03-28 14:50] LABS: ABS Eosinophils 0.1 10^3/ul (0-0.6); ABS Lymphocytes 1.5 10^3/ul (1.0-4.8); ABS Monocytes 0.5 10^3/ul (0-0.8); ABS Neutrophils 5.7 10^3/ul (1.5-7.7); Eosinophil % 1.3 %; Hematocrit 41 % (35-47); Lymphocyte % 19.3 %; Mean Corpuscular HGB Conc 34 g/dL (31-36); Mean Corpuscular Hemoglobin 30 pg (27-31); Mean Corpuscular Volume 88 fL (80-97); Mean Platelet Volume 8.3 fL (7.4-10.4); Platelet Count 227 10^3/uL (150-450); Red Blood Count 4.71 10^6 /uL (3.70-4.87); Red Cell Distribution Width 15 % (10-15); White Blood Count 7.8 10^3/uL (3.5-10.8)
[2019-03-28 15:15] LABS: ALT 14 U/L (7-52); AST 19 U/L (13-39); Albumin 4.2 g/dL (3.2-5.2); Albumin/Globulin Ratio 1.5 (1-3); Alkaline Phosphatase 84 U/L (34-104); Anion Gap 10 mmol/L (2-11); BUN/Creatinine Ratio 14.6 (8-20); Blood Urea Nitrogen 18 mg/dL (6-24); CO2 Carbon Dioxide 27 mmol/L (22-32); Calcium 9.6 mg/dL (8.6-10.3); Chloride 106 mmol/L (101-111); EGFR African American 51.9 (>60); EGFR Non-African American 42.9 (>60); Globulin 2.8 g/dL (2-4); Glucose 119 mg/dL (70-100); Potassium 3.4 mmol/L (3.5-5.0); Sodium 143 mmol/L (135-145); Troponin I 0.01 ng/mL (<0.04)
[2019-03-28 15:21] LABS: Acetaminophen < 15 mcg/mL; Alcohol < 10 mg/dL (<10); Salicylate < 2.50 mg/dL (<30)
[2019-03-28 15:36] LABS: TSH (Thyroid Stimulating Horm) 0.67 mcIU/mL (0.34-5.60)
[2019-03-28] MEDS ORDERED: Acetaminophen TAB* 325 MG PO PRN (17:12)
[2019-03-28] MEDS ORDERED: Al Hydrox/Mg Hydrox/Simet LIQ* 30 ML UDC PO PRN (17:12)
[2019-03-28] MEDS ORDERED: Benzonatate CAP* 100 MG PO PRN (17:14)
[2019-03-28] MEDS ORDERED: Potassium Chlor TAB* 20 MEQ TAB.ER PO ONE (17:17)
[2019-03-28 18:12] LABS: Urine Appearance Cloudy; Urine Bacteria Absent (Absent); Urine Bilirubin Negative (Negative); Urine Blood Negative (Negative); Urine Color Yellow; Urine Glucose Negative (Negative); Urine Ketones Negative (Negative); Urine Nitrite Negative (Negative); Urine Protein Negative (Negative); Urine Red Blood Cell Trace(0-2/hpf) (Absent); Urine Specific Gravity 1.013 (1.010-1.030); Urine Squamous Epithelial Cell Present (Absent); Urine Urobilinogen Negative (Negative); Urine White Blood Cell 3+(>20/hpf) (Absent)
[2019-03-28] MEDS ORDERED: QUEtiapine TAB* 300 MG PO SCH (21:00)
[2019-03-28] MEDS: Heparin VIAL(*) 5000 UNITS/ML VIAL (FIVE THOUSAND) SUBCUT SCH (22:06)
[2019-03-28] MEDS: Acetylcysteine CAP (RENAL)* 600 MG PO SCH (22:06)
[2019-03-28] MEDS: busPIRone TAB* 15 MG PO SCH (22:07)
[2019-03-28] MEDS: Docusate CAP* 100 MG PO SCH (22:07)
[2019-03-28] MEDS: Magnesium Oxide TAB* 400 MG PO SCH (22:08)
--- NOTE | 2019-03-28 22:14 | HP ---
CC: Dr. Cam * HISTORY AND PHYSICAL: DATE OF ADMISSION: 03/28/19 PRIMARY CARE PROVIDER: Dr. Cam. CHIEF COMPLAINT: Transient episode of confusion. HISTORY OF PRESENT ILLNESS: Candy Reza is a 73-year-old female with history of mild dementia and episodes of confusion and forgetfulness in the past who presented to the hospital after she was going from [facility] to her appointment with her family practice provider and she mixed up the days. She realized that she was supposed to be there tomorrow and not today. On the way there, she felt "confused" and tremulous. Apparently, someone helped her to get her to her primary care provider's office from where an ambulance was called. The patient stated that she feels that she has essential tremors and her tremors are "at her baseline." She has poor memory and she does not remember when her Seroquel was increased, but it appears that it has been increased within the past couple of months. Also, within the past couple of months, the patient had been seen in the ED for syncope, orthostatic hypotension , and dehydration at the end of February 2019 and today. Today, she does not appear to be markedly dehydrated. Her blood pressures are actually higher. Her renal function is at her baseline. She is going to be observed overnight to rule out TIA. PAST MEDICAL HISTORY: 1. History of essential tremor. 2. History of dementia with episodes of confusion in the past. 3. History of hyperlipidemia. 4. Hypertension. 5. Depression. 6. Bipolar disorder. 7. Anxiety. PAST SURGICAL HISTORY: 1. Status post right hip arthroplasty in 2012. 2. Flexible sigmoidoscopy in 1995. CURRENT MEDICATIONS: Include: 1. BuSpar 22.5 mg b.i.d. 2. Zinc 50 mg daily. 3. Seroquel 400 mg at bedtime, appears to have just been increased from 300 mg to 400 mg within the past couple of months. 4. Vitamin D3 at 400 units daily. 5. Fluoxetine 20 mg daily. 6. Mag-Ox 400 mg b.i.d. 7. Acetylcysteine 600 mg b.i.d. 8. Altonah-3 fatty acids 1000 mg daily. 9. Plavix 75 mg daily. 10. Wellbutrin XL 150 mg daily. 11. Tessalon Perles on a p.r.n. basis. 12. Lipitor 20 mg daily. FAMILY HISTORY: Positive for father and mother with diabetes and father with a stroke. SOCIAL HISTORY: The patient has smoked remotely. She denies any alcohol or drug use. Her surrogate decision makers are her sister and brother. Her sister , Lore Vallecillo, lives in [place]. REVIEW OF SYSTEMS: Please see history of present illness. In addition to above - mentioned, the patient denies any problems with urinary symptoms. Her appetite is good and she actually stated that sometimes she "eats too much." She usually ambulates with a cane. She lives independently in [facility]. She denies any recent fever. She denies any chest pain or shortness of breath. She denies any localized weakness. All the remaining 12 systems were reviewed with the patient, who is a rather poor historian, and were otherwise negative. PHYSICAL EXAMINATION GENERAL: The patient is a pleasant 73-year-old female who is in no acute distress. The patient is alert and oriented x3, although she did have problems with remembering the correct day today. VITAL SIGNS: Blood pressure 171/94, heart rate of 89 and regular, respiratory rate 27, oxygen saturation 92% on room air, temperature of 98.6. HEENT: Head: Atraumatic, normocephalic. Eyes: Pupils are equal and reactive to light and accommodation. Oropharynx clear. Mucosa moist. NECK: Supple with no JVD. No bruits bilaterally. RESPIRATORY: Clear to auscultation bilaterally. CARDIOVASCULAR: Regular rate and rhythm. No murmur. ABDOMEN: Soft, nontender. Bowel sounds are present in all 4 quadrants. EXTREMITIES: There is no edema. Pulses are 2+ bilaterally. No clubbing or cyanosis. NEUROLOGIC: The patient has essential tremor that is present in bilateral upper extremities. Cranial nerves II through XII grossly intact. Speech is clear. Motor strength is 5/5 bilaterally. Ambulation was not evaluated. LABORATORY DATA AND STUDIES PERFORMED DURING HER ED STAY: Include: EKG showed normal sinus rhythm with heart rate of 83 beats per minute with no ST changes. Brain CT, impression: "No acute intracranial pathology. Chronic small-vessel ischemic change." Portable chest x-ray, impression: "No active cardiopulmonary disease is noted. " The patient's lab shows sodium of 143, potassium 3.4, chloride 106, carbon dioxide 27, BUN 18, creatinine 1.23. Liver function tests unremarkable. TSH 0.67. Troponin 0.01. White blood cell count 7.4, hemoglobin 14.0, hematocrit 41 , and platelets of 227. The patient's C-reactive protein was within normal limits at 4. Urinalysis is pending at the time of dictation. ASSESSMENT AND PLAN: Transient confusion and increasing tremor. From my review of the patient's medical record, it appears that the patient's Seroquel dose was possibly increased recently, although the patient is not sure. She had a similar admission in 2017 for confusion when it was found that the patient may have been taking too many of her medications. She is rather forgetful. She is going to be admitted to monitored telemetry bed with neuro checks every 4 hours. We will obtain an MRI of the brain to rule out a cerebrovascular accident. If that is ruled out, I do not think she needs any further stroke workup. Continue her Seroquel at 300 mg nightly. Physical therapy and occupational therapy will see the patient in evaluation. We are still awaiting urinalysis to rule out urinary tract infection, although the patient is asymptomatic from a urinary standpoint and her C- reactive protein is within normal limits. In regards to the patient's chronic kidney disease, the patient has history of chronic kidney disease stage 3 with creatinine at baseline. The patient has history of apparent transient ischemic attack and she is on Plavix, which is going to be continued. In regards to the patient's depression, her medications for depression are going to be continued at the doses as from home. For DVT prophylaxis, the patient is going to be placed on heparin subcutaneously. The patient's code status is full and her surrogate is her brother and sister. TIME SPENT: Approximately 65 minutes were spent on the admission of this patient, more than half that time was spent [id number] with the patient during the interview and physical exam. [id number]/[facility] #: [id number] MARY
[2019-03-29] MEDS: Heparin VIAL(*) 5000 UNITS/ML VIAL (FIVE THOUSAND) SUBCUT SCH (05:49)
[2019-03-29] MEDS: Acetylcysteine CAP (RENAL)* 600 MG PO SCH (08:31)
[2019-03-29] MEDS: Magnesium Oxide TAB* 400 MG PO SCH (08:31)
[2019-03-29] MEDS: Docusate CAP* 100 MG PO SCH (08:32)
[2019-03-29] MEDS: busPIRone TAB* 15 MG PO SCH (08:32)
[2019-03-29] MEDS ORDERED: BuPROPion XL* 150 MG TAB.XL PO SCH (09:00)
[2019-03-29] MEDS ORDERED: Atorvastatin* 20 MG TAB PO SCH (09:00)
[2019-03-29] MEDS ORDERED: Cholecalciferol TAB* 400 UNIT PO SCH (09:00)
[2019-03-29] MEDS ORDERED: Clopidogrel TAB* 75 MG PO SCH (09:00)
[2019-03-29] MEDS ORDERED: FLUoxetine CAP* 20 MG PO SCH (09:00)
[2019-03-29 14:53] VITALS: BP 111/60
--- NOTE | 2019-03-29 15:08 | DS ---
CC: Dr. Cam * DISCHARGE SUMMARY: DATE OF ADMISSION: 03/28/19 DATE OF DISCHARGE: 03/29/19 PRIMARY CARE PROVIDER: Dr. Cam. DISPOSITION AT DISCHARGE: Back to [facility]. CONDITION AT DISCHARGE: Stable. DISCHARGE DIAGNOSIS: Transient episode of confusion, possibly related to to many medications taken by mistake in a patient who has history of mild dementia. SECONDARY DIAGNOSES: 1. History of episodes of confusion in the past, likely related to worsening dementia versus medication that was mistakenly taken. 2. History of essential tremor. 3. History of hyperlipidemia. 4. Hypertension. 5. Depression. 6. Bipolar disorder. 7. Anxiety. MEDICATIONS AT DISCHARGE: Include: 1. Seroquel 300 mg at bedtime. 2. Plavix 75 mg daily. 3. Wellbutrin XL 150 mg daily. 4. Zinc 50 mg daily. 5. Sylva-3 fatty acids 1000 mg daily. 6. Mag-Ox 400 mg b.i.d. 7. Prozac 20 mg daily. 8. Vitamin D 400 units daily. 9. BuSpar 22.5 mg b.i.d. 10. Tessalon 200 mg t.i.d. p.r.n. 11. Lipitor 20 mg daily. 12. Acetylcysteine 600 mg b.i.d. LABORATORY DATA AND STUDIES PERFORMED DURING THE HOSPITAL STAY: Are included in history and physical. Microbiology data so far not resulted. The patient's MRI of the brain obtained on 03/28/19, impression: "No acute intracranial abnormality." HOSPITALIZATION COURSE: Candy Reza is a 73-year-old female with history of dementia with episodes of confusion in the past, who presented to the hospital after what she described as possibility of near syncope and confusion when she was trying to get to the doctor's appointment yesterday. The patient was placed on overnight observation. She was neurologically intact. She is forgetful. She was evaluated by Physical Therapy and deemed to be stable with her cane to go home. I spoke about the patient with trimming caser. The patient does not have a lab systems analyst and no children. Her brother and sister are available, but they are not really involved in the patient's care and the patient does not really wish them to be involved closer. She has a friend who visits her from time to time and I believe who gets paid for taking care of some of the patient's affairs. The patient wishes not to be placed in assisted living facility or rehabilitation. The trimming caser set up the patient with visiting nurse association at discharge. I suspect the periods of confusion are due to medication mix-up or possibility of worsening dementia. The patient was encouraged to try to arrange a safer environment for herself to live in. For the time being, hopefully, visiting nurse association will be able to keep check on the patient's medications. Physical exam at discharge is unchanged from admission. [id number]/[facility] #: [id number] SAVANNAD
== END 2019-03-29 15:10 | disposition home or self-care (01) ==
LOC: ED 13:06 → MEDTELE 17:12
PROVIDERS: ADMIT Internal Medicine; ATTEND Internal Medicine
DX: R41.0 Disorientation, unspecified (principal); F03.90 Unspecified dementia, unspecified severity, without behavioral disturbance, psychotic disturbance, mood disturbance, and anxiety; G25.0 Essential tremor; E78.5 Hyperlipidemia, unspecified; I10 Essential (primary) hypertension; F31.9 Bipolar disorder, unspecified; Z79.899 Other long term (current) drug therapy; Z88.0 Allergy status to penicillin; E78.00 Pure hypercholesterolemia, unspecified; Z87.891 Personal history of nicotine dependence
CPT/HCPCS: 36415; 70450; 70551; 71045; 80053; 80320; 80329; 81003; 81015; 82140; 84443; 84484; 85025; 86140; 87086; 93005; 96360; 96372; 99285; A9270-GY; G0378; G0480; G8978-GP-CI; G8979-GP-CI; G8980-GP-CI; G8987-GO-CJ; G8988-GO-CI; J1644

== ENCOUNTER 2019-09-04 09:08 | Emergency (ER) | payer MEDICARE ==
--- NOTE | 2019-09-04 09:21 | ED ---
Altered Mental Status - HPI Summary HPI Summary: 74 year old female presents to the ED by EMS with a chief complaint of headache secondary to falling out of bed minutes SEAMAN. CODE JEREMIAH CALLED AT 0918. THIS IS A LEVEL 5 CAVEAT, PATIENT IS A POOR HISTORIAN. Last known well was last night. Patient lives in the [facility], where she was found on the ground twice last night. Time spent on the ground unknown. She reports gross pain, especially in her abdomen and head. CT head taken at 0925. - History Of Current Complaint Chief Complaint: EDAltMentalStatus Stated Complaint: AMS PER EMS Time Seen by Provider: 09/04/19 09:14 Hx Obtained From: Patient Hx From Patient Unobtainable Due To: Altered Mental Status Onset/Duration: Unknown Character: Responsiveness Aggravating Factor(s): Unknown - Patient fell Alleviating Factor(s): Unknown Associated Signs And Symptoms: Positive: Headache, Recent Trauma - Fall - Allergies/Home Medications Allergies/Adverse Reactions: Allergies Allergy/AdvReac Type Severity Reaction Status Date / Time aspirin Allergy Unknown Verified 03/28/19 13:48 Reaction Details ibuprofen Allergy Unknown Verified 03/28/19 13:48 Reaction Details lamotrigine Allergy Unknown Verified 03/28/19 13:48 Reaction Details Penicillins Allergy Unknown Verified 03/28/19 13:48 Reaction Details PMH/Surg Hx/FS Hx/Imm Hx Endocrine/Hematology History: Denies: Hx Anticoagulant Therapy, Hx Diabetes, Hx Systemic Lupus Erythematosus, Hx Thyroid Disease Cardiovascular History: Reports: Hx Hypercholesterolemia, Hx Hypertension Denies: Hx Pacemaker/ICD Respiratory History: Denies: Hx Asthma, Hx Chronic Obstructive Pulmonary Disease (COPD), Hx Lung Cancer, Hx Pneumonia, Hx Pulmonary Embolism GI History: Denies: Hx Gall Bladder Disease, Hx Irritable Bowel History: Denies: Hx Renal Disease Musculoskeletal History: Reports: Hx Back Problems Denies: Hx Arthritis Sensory History: Reports: Hx Contacts or Glasses - reading only, Hx Hearing Problem Denies: Hx Hearing Aid Opthamlomology History: Reports: Hx Contacts or Glasses - reading only Neurological History: Reports: Hx Dementia, Hx Seizures - pt states seizure a few years ago, Hx Transient Ischemic Attacks (TIA) - 12/29 Comment Only: Other Neuro Impairments/Disorders - Essential tremors Psychiatric History: Reports: Hx Anxiety, Hx Depression, Hx Bipolar Disorder Denies: Hx Panic Disorder - Cancer History Hx Chemotherapy: No Hx Radiation Therapy: No - Surgical History Surgery Procedure, Year, and Place: Right Hip replacement (2012);. tonsilectomy (1965) Infectious Disease History: No Infectious Disease History: Denies: History Other Infectious Disease, Traveled Outside the [place] in Last 30 Days - Family History Known Family History: Positive: Hypertension, Diabetes - Social History Alcohol Use: Rare Hx Substance Use: No Substance Use Type: Reports: None Hx Tobacco Use: No Smoking Status (MU): Former Smoker Review of Systems Negative: Fever Positive: Abdominal Pain Positive: Headache All Other Systems Reviewed And Are Negative: No Physical Exam - Summary Physical Exam Summary: Appearance: The patient is well-nourished in no acute distress and in no acute pain. Skin: The skin is warm and dry, and skin color reflects adequate perfusion. HEENT: The head is normocephalic and atraumatic. The pupils are equal and reactive. The conjunctivae are clear and without drainage. Nares are patent and without drainage. Mouth reveals moist mucous membranes, and the throat is without erythema and exudate. The external ears are intact. The ear canals are patent and without drainage. The tympanic membranes are intact. Neck: The neck is supple with full range of motion and non-tender. There are no carotid bruits. There is no neck vein distension. Respiratory: Chest is non-tender. Lungs are clear to auscultation and breath sounds are symmetrical and equal. Cardiovascular: Heart is regular rate and rhythm. There is no murmur or rub auscultated. There is no peripheral edema and pulses are symmetrical and equal. Abdomen: The abdomen is soft and non-tender. There are normal bowel sounds heard in all four quadrants and there is no organomegaly palpated. Musculoskeletal: There is no back tenderness noted. Extremities are non-tender with full range of motion. There is good capillary refill. There is no peripheral edema or calf tenderness elicited. Patient moves all extremities. Neurological: Patient knows birthday. The patient has symmetrical motor strength in all four extremities. Cranial nerves are grossly intact. Deep tendon reflexes are symmetrical and equal in all four extremities. Psychiatric: The patient has an appropriate affect and does not exhibit any anxiety or depression. Triage Information Reviewed: Yes Vital Signs On Initial Exam: Initial Vitals Temp Pulse Resp BP Pulse Ox 98.5 F 55 18 195/99 98 09/04/19 09:09 09/04/19 09:09 09/04/19 09:09 09/04/19 09:09 09/04/19 09:09 Vital Signs Reviewed: Yes Completion Of Physical Exam Limited Due To: Level 5 - Sloan Coma Scale Best Eye Response: 3 - To Speech Best Motor Response: 6 - Obeys Commands Best Verbal Response: 5 - Oriented Coma Scale Total: 14 Procedures - Sedation Patient Received Moderate/Deep Sedation with Procedure: No Diagnostics - Vital Signs Vital Signs Temp Pulse Resp BP Pulse Ox 09/04/19 09:09 98.5 F 55 18 195/99 98 - Laboratory Lab Statement: Any lab studies that have been ordered have been reviewed, and results considered in the medical decision making process. Discharge ED - Discharge Plan Referrals: Jayson Cam MD [Primary Care Provider] - - Attestation Statements Document Initiated by Scribe: Yes Documenting Scribe: Daryl Ashraf Provider For Whom Scribe is Documenting (Include Credential): Ga Salas MD Scribe Attestation: Daryl Bermeo, scribed for Ga Salas MD on 09/04/19 at 1003.
[2019-09-04] MEDS ORDERED: Lorazepam PYXIS KEY PRN ×2 (09:28→09:39)
[2019-09-04] MEDS ORDERED: LORazepam INJ* 2 MG/ML 1 ML VIAL IV PUSH ONE ×2 (09:28→09:39)
[2019-09-04] MEDS ORDERED: LORazepam INJ* 2 MG/ML 1 ML VIAL ONE (09:30)
[2019-09-04] MEDS ORDERED: Lorazepam PYXIS KEY ONE (09:31)
[2019-09-04] MEDS ORDERED: NS 0.9% 1000 ML** 1,000 ML IV ONE (09:40)
[2019-09-04] MEDS ORDERED: Haloperidol INJ IV/IM* 5 MG/ML AMP IV SLOW PU ONE (09:52)
[2019-09-04] MEDS ORDERED: Haloperidol INJ IV/IM* 5 MG/ML AMP ONE (09:54)
[2019-09-04] MEDS ORDERED: Labetalol IV* 5 MG/ML 20 ML VIAL IV PUSH ONE (10:04)
--- NOTE | 2019-09-04 10:04 | ED ---
Altered Mental Status - HPI Summary HPI Summary: 74-year-old female presents altered mental status. Last normal unknown. She had 2 falls last night and was placed back in bed. Initially she is murmuring incomprehensible words. She will not open her eyes. She is twitching her arms and legs. Baseline is unknown. she was told that by EMS that she is having pain hip pain but it is unclear what hip. per history on plavix. per records history of TIA and confusion. she has dementia. LEVEL 5 cavet due to mental status. family came later and states that she fell twice. She was complaining of head pain to them and was vomiting. PMH: bipolar, previous tia/cva, htn, essential tremor, dementia with episodes of confusion - History Of Current Complaint Chief Complaint: EDAltMentalStatus Stated Complaint: AMS PER EMS Time Seen by Provider: 09/04/19 09:14 Hx Obtained From: Patient Hx From Patient Unobtainable Due To: Altered Mental Status Onset/Duration: Unknown Character: Responsiveness Aggravating Factor(s): Unknown - Patient fell Alleviating Factor(s): Unknown Associated Signs And Symptoms: Positive: Headache, Recent Trauma - Fall - Allergies/Home Medications Allergies/Adverse Reactions: Allergies Allergy/AdvReac Type Severity Reaction Status Date / Time aspirin Allergy Unknown Verified 03/28/19 13:48 Reaction Details ibuprofen Allergy Unknown Verified 03/28/19 13:48 Reaction Details lamotrigine Allergy Unknown Verified 03/28/19 13:48 Reaction Details Penicillins Allergy Unknown Verified 03/28/19 13:48 Reaction Details PMH/Surg Hx/FS Hx/Imm Hx Endocrine/Hematology History: Denies: Hx Anticoagulant Therapy, Hx Diabetes, Hx Systemic Lupus Erythematosus, Hx Thyroid Disease Cardiovascular History: Reports: Hx Hypercholesterolemia, Hx Hypertension Denies: Hx Pacemaker/ICD Respiratory History: Denies: Hx Asthma, Hx Chronic Obstructive Pulmonary Disease (COPD), Hx Lung Cancer, Hx Pneumonia, Hx Pulmonary Embolism GI History: Denies: Hx Gall Bladder Disease, Hx Irritable Bowel History: Denies: Hx Renal Disease Musculoskeletal History: Reports: Hx Back Problems Denies: Hx Arthritis Sensory History: Reports: Hx Contacts or Glasses - reading only, Hx Hearing Problem Denies: Hx Hearing Aid Opthamlomology History: Reports: Hx Contacts or Glasses - reading only Neurological History: Reports: Hx Dementia, Hx Seizures - pt states seizure a few years ago, Hx Transient Ischemic Attacks (TIA) - 12/29 Comment Only: Other Neuro Impairments/Disorders - Essential tremors Psychiatric History: Reports: Hx Anxiety, Hx Depression, Hx Bipolar Disorder Denies: Hx Panic Disorder - Cancer History Hx Chemotherapy: No Hx Radiation Therapy: No - Surgical History Surgery Procedure, Year, and Place: Right Hip replacement (2012);. tonsilectomy (1965) Infectious Disease History: No Infectious Disease History: Denies: History Other Infectious Disease, Traveled Outside the [place] in Last 30 Days - Family History Known Family History: Positive: Hypertension, Diabetes - Social History Alcohol Use: Rare Hx Substance Use: No Substance Use Type: Reports: None Hx Tobacco Use: No Smoking Status (MU): Former Smoker Review of Systems Negative: Fever Positive: Headache All Other Systems Reviewed And Are Negative: Yes Physical Exam Triage Information Reviewed: Yes Vital Signs On Initial Exam: Initial Vitals Temp Pulse Resp BP Pulse Ox 98.5 F 55 18 195/99 98 09/04/19 09:09 09/04/19 09:09 09/04/19 09:09 09/04/19 09:09 09/04/19 09:09 Vital Signs Reviewed: Yes Appearance: Positive: Well-Appearing Skin: Positive: Warm, Dry Eyes: Positive: Conjunctiva Clear, Other: - pupils dilated and will not constrict Respiratory/Lung Sounds: Positive: Clear to Auscultation, Breath Sounds Present Cardiovascular: Positive: Normal, RRR Abdomen Description: Positive: Nontender, Soft Bowel Sounds: Positive: Present Musculoskeletal: Positive: Normal Neurological: Positive: Alert, Oriented to Person Place, Time - person, Other - twitches noted to legs, able to open eyes, able to keep arms in air. Negative: Sensory/Motor Intact, CN Intact II-III Psychiatric: Positive: Normal Procedures - Sedation Patient Received Moderate/Deep Sedation with Procedure: Yes Are You The Provider Who Administered The Sedation: Regina of Provider Whom Sedated Patient: [facility] - Vital Signs Vital Signs Temp Pulse Resp BP Pulse Ox 09/04/19 09:09 98.5 F 55 18 195/99 98 - Laboratory Result Diagrams: 09/04/19 10:18 09/04/19 10:18 Lab Statement: Any lab studies that have been ordered have been reviewed, and results considered in the medical decision making process. - CT brain CT Interpretation Completed By: Radiologist Summary of CT Findings: 1. An acute hematoma in the right temporoparietal region measures up to 8 cm. There is questionable decompression of the hematoma into the right lateral ventricle. Mass effect causes partial effacement of the right lateral ventricle. There is no obvious midline shift. - EKG No standard instances Cardiac Rate: NL EKG Rhythm: Sinus Rhythm EKG Comparison: No Significant Change Summary of EKG Findings: sinus rhythm, artificat noted Re-Evaluation - Re-Evaluation First Eval Re-Evaluation Time: 10:23 Comment: bp over 200 will give labatelol Second Eval Re-Evaluation Time: 10:37 Comment: patient will be intubated Altered Mental Statu Course/Dx - Course Course Of Treatment: 74-year-old female presents altered mental status. Last normal unknown. She had 2 falls last night and was placed back in bed. Initially she is murmuring incomprehensible words. She will not open her eyes. She is twitching her arms and legs. Baseline is unknown. she was told that by EMS that she is having pain hip pain but it is unclear what hip. per history on plavix. per records history of TIA and confusion. On initial exam will not open eyes. Is mumbling incomprehensible words. Will not answer her name. Twitches her legs and will not follow commands. Lungs are clear to auscultation. On second evaluation with Dr. Salas patient now states her name. Will open her eyes. Was able to raise both arms. slowly follows instructions but then became altered again and will not follow commands anymore. Appears anxious. States that she does have a headache. required halodal and ativan for CT but was not good quality on the CT. CT shows right temporal occiptal hematoma. as is on plavix will give desmopressin. do not have neurosurgery here so will need to transfer. patient accepted at [facility]. family states they want everything done at this time. patient will be intubated by Dr Bhatia prior to transfer. will start on nicardipine drip for bp. wbc 17. potassium low at 2.7 will give run of potassium while transport. lactic 2.8. - Diagnoses Differential Diagnosis/HQI/PQRI: CVA, Intracranial Bleed, TIA Provider Diagnoses: Brain hematoma, Fall, Hypokalemia - Critical Care Time Critical Care Time: 75-104 min - 90 mins Discharge ED - Sign-Out/Discharge Documenting (check all that apply): Patient Departure - Discharge Plan Condition: Critical Disposition: TRANS HIGHER LVL OF CARE FAC Referrals: Jayson Cam MD [Primary Care Provider] - - Billing Disposition and Condition Condition: CRITICAL Disposition: Trans Higher Lvl of Care Fac
--- NOTE | 2019-09-04 10:09 | ED ---
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 PATTIE DANIELS CALLED AT 917. Last known well was last night. Patient lives in the [facility], where she was found on the ground twice last night. Per rotary drill operator helper, she first fell late last night, and again this morning minutes HVAC DESIGN MECHANICAL ENGINEER. Time spent on the ground unknown. She reports gross pain, especially in her abdomen and head. CT head taken at 924. Physical Exam - Summary Physical Exam Summary: Appearance: The patient is well-nourished in no acute distress and in no acute pain. Skin: The skin is warm and dry, and skin color reflects adequate perfusion. HEENT: The head is normocephalic and atraumatic. The pupils are equal and reactive. The conjunctivae are clear and without drainage. Nares are patent and without drainage. Mouth reveals moist mucous membranes, and the throat is without erythema and exudate. The external ears are intact. The ear canals are patent and without drainage. The tympanic membranes are intact. Neck: The neck is supple with full range of motion and non-tender. There are no carotid bruits. There is no neck vein distension. Respiratory: Chest is non-tender. Lungs are clear to auscultation and breath sounds are symmetrical and equal. Cardiovascular: Heart is regular rate and rhythm. There is no murmur or rub auscultated. There is no peripheral edema and pulses are symmetrical and equal. Abdomen: The abdomen is soft and non-tender. There are normal bowel sounds heard in all four quadrants and there is no organomegaly palpated. Musculoskeletal: There is no back tenderness noted. Extremities are non-tender with full range of motion. There is good capillary refill. There is no peripheral edema or calf tenderness elicited. Patient moves all extremities. Neurological: Patient knows birthday. The patient has symmetrical motor strength in all four extremities. Cranial nerves are grossly intact. Deep tendon reflexes are symmetrical and equal in all four extremities. Psychiatric: The patient has an appropriate affect and does not exhibit any anxiety or depression. Triage Information Reviewed: Yes Vital Signs On Initial Exam: Initial Vitals Temp Pulse Resp BP Pulse Ox 98.5 F 55 18 195/99 98 09/04/19 09:09 09/04/19 09:09 09/04/19 09:09 09/04/19 09:09 09/04/19 09:09 Vital Signs Reviewed: Yes - [place] Coma Scale Best Eye Response: 3 - To Speech Best Motor Response: 6 - Obeys Commands Best Verbal Response: 5 - Oriented Coma Scale Total: 14 Re-Evaluation - Re-Evaluation First Eval Re-Evaluation Time: 10:23 Comment: bp over 200 will give labatelol Course/Dx - Diagnoses Provider Diagnoses: Brain hematoma Discharge ED - Discharge Plan Referrals: Jayson Cam MD [Primary Care Provider] - - Attestation Statements Document Initiated by Scribe: Yes Documenting Scribe: Daryl Ashraf Provider For Whom Scribe is Documenting (Include Credential): Ga Salas MD Scribe Attestation: Daryl Bermeo, scribed for Ga Salas MD on 09/04/19 at 1048. Procedures - Sedation Patient Received Moderate/Deep Sedation with Procedure: Yes - Intubation Time of Intubation: 10:44 - Intubation performed by Kvng Bhatia. 20mg Etomidate and 100mg Rocuronium used. Intubation Method: orotracheal Tube Size (cm): 7.5 Breath Sounds after Intubation: equal Intubation Complications: no complications Post Intubation Xray: Yes
[2019-09-04] MEDS ORDERED: NS 0.9% IVPB ONE (10:21)
[2019-09-04] MEDS ORDERED: DESMOPRESSIN ACETATE IVPB ONE (10:21)
[2019-09-04 10:24] LABS: ABS Lymphocytes 0.7 10^3/ul (1.0-4.8); ABS Monocytes 1.2 10^3/ul (0-0.8); ABS Neutrophils 15.3 10^3/ul (1.5-7.7); Hematocrit 45 % (35-47); Hemoglobin 15.6 g/dL (12.0-16.0); Lymphocyte % 3.9 %; Mean Corpuscular HGB Conc 35 g/dL (31-36); Mean Corpuscular Hemoglobin 29 pg (27-31); Mean Corpuscular Volume 85 fL (80-97); Mean Platelet Volume 8.5 fL (7.4-10.4); Nucleated Red Blood Cells % 0.1; Platelet Count 271 10^3/uL (150-450); Red Blood Count 5.34 10^6 /uL (3.70-4.87); Red Cell Distribution Width 15 % (10-15); White Blood Count 17.2 10^3/uL (3.5-10.8)
[2019-09-04 10:25] LABS: Mean Platelet Volume 8.6 fL (7.4-10.4); Platelet Count 280 10^3/uL (150-450)
[2019-09-04 10:30] LABS: INR 1.17 (0.82-1.09)
[2019-09-04] MEDS ORDERED: Etomidate* 2 MG/ML 10 ML VIAL IV ONE (10:32)
[2019-09-04] MEDS ORDERED: Propofol* 100 ML IV ONE ×2 (10:32→10:52)
[2019-09-04] MEDS ORDERED: Rocuronium* 10 MG/ML VIAL IV ONE (10:32)
[2019-09-04] MEDS ORDERED: Propofol* 100 ML ONE (10:35)
[2019-09-04 10:40] LABS: HDL Cholesterol 86.2 mg/dL
[2019-09-04 10:41] LABS: ALT 18 U/L (7-52); AST 26 U/L (13-39); Albumin 4.5 g/dL (3.2-5.2); Albumin/Globulin Ratio 1.3 (1-3); Alkaline Phosphatase 111 U/L (34-104); BUN/Creatinine Ratio 23.2 (8-20); Blood Urea Nitrogen 23 mg/dL (6-24); CO2 Carbon Dioxide 21 mmol/L (22-32); Chloride 101 mmol/L (101-111); Creatine Kinase 633 U/L (10-223); EGFR African American 66.5 (>60); Globulin 3.5 g/dL (2-4); Glucose 206 mg/dL (70-100); Sodium 138 mmol/L (135-145)
[2019-09-04 10:48] LABS: Anion Gap 16 mmol/L (2-11); Potassium 2.7 mmol/L (3.5-5.0)
[2019-09-04 10:49] LABS: Troponin I 0.04 ng/mL (<0.03)
[2019-09-04] MEDS ORDERED: niCARdipine 0.1MG/ML IVPREMIX* 20 MG/200 ML BAG IV SCH (11:00)
[2019-09-04] MEDS ORDERED: KCL 20 MEQ/100 ML IVPREMIX* 20 MEQ/100 ML BAG IV ONE (11:07)
[2019-09-04 15:29] VITALS: BP 188/87
== END 2019-09-04 12:00 | disposition short-term general hospital (02) ==
LOC: ED 09:08
DX: S06.2X0A Diffuse traumatic brain injury without loss of consciousness, initial encounter (principal); W19.XXXA Unspecified fall, initial encounter; Z91.81 History of falling; Y92.099 Unspecified place in other non-institutional residence as the place of occurrence of the external cause; M25.559 Pain in unspecified hip; E87.6 Hypokalemia; R25.1 Tremor, unspecified; I10 Essential (primary) hypertension; F03.90 Unspecified dementia, unspecified severity, without behavioral disturbance, psychotic disturbance, mood disturbance, and anxiety; Z79.01 Long term (current) use of anticoagulants; Z86.73 Personal history of transient ischemic attack (TIA), and cerebral infarction without residual deficits; Z96.641 Presence of right artificial hip joint; Z88.6 Allergy status to analgesic agent; Z88.0 Allergy status to penicillin; Z88.8 Allergy status to other drugs, medicaments and biological substances; Z87.891 Personal history of nicotine dependence
CPT/HCPCS: 31500; 36415; 70450; 71045; 80053; 80061; 82550; 83605; 84484; 85025; 85049; 85610; 85730; 93005; 96361; 96365; 96366; 96375; 99285; J1630; J2060; J2597; J2704; J3480